=== PATIENT | male | born 1965 | race Caucasian/White ===

== ENCOUNTER 2017-01-21 09:30 | Emergency (ER) | payer OTHER ==
[2017-01-21] MEDS ORDERED: NS 0.9% 1000 ML* 1,000 ML IV ONE (09:57)
[2017-01-21] MEDS ORDERED: LORazepam INJ* 2 MG/ML 1 ML VIAL IV PUSH ONE (10:02)
--- NOTE | 2017-01-21 10:02 | ED ---
Substance Abuse/Use - HPI Summary HPI Summary: 51M w/ PMH of mental health and GERD presents with ETOH withdrawal since last night. His last drink was 22:00 last night. He drinks 20 beers a day. He states that he has vomited 6 times this morning and is currently nauseous. He states that he has a moderate headache and that he is seeing spots. He admits to be anxious and feeling sweaty. He denies any si/hi. He also admits to back pain in lower back that says he has from sleeping wrong. He has a history of seizures from ETOH withdrawal but has not had one recently. - History Of Current Complaint Chief Complaint: EDSubstanceAbuse Stated Complaint: WITHDRAWAL Time Seen by Provider: 01/21/17 09:50 - Allergies/Home Medications Allergies/Adverse Reactions: Allergies Allergy/AdvReac Type Severity Reaction Status Date / Time Topiramate [From Topamax] AdvReac Muscle Ache Verified 01/21/17 09:57 PMH/Surg Hx/FS Hx/Imm Hx Endocrine/Hematology History: Denies: Hx Blood Transfusions, Hx Thyroid Disease Respiratory History: Reports: Hx Pneumonia, Hx Seasonal Allergies GI History: Reports: Hx Cirrhosis, Hx Gastroesophageal Reflux Disease, Hx Ulcer Musculoskeletal History: Reports: Hx Arthritis, Hx Back Problems, Hx Gout, Other Musculoskeletal History - b/l leg pain Sensory History: Reports: Hx Contacts or Glasses - READING Opthamlomology History: Reports: Hx Contacts or Glasses - READING Neurological History: Reports: Hx Headaches, Hx Migraine, Hx Seizures Denies: Hx Spinal Cord Injury Psychiatric History: Reports: Hx Anxiety, Hx Depression, Hx Inpatient Treatment , Hx Community Mental Health Tx, Hx Suicide Attempt, Hx Substance Abuse Denies: Hx Eating Disorder, Hx Post Traumatic Stress Disorder, Hx of Violent Episodes Against Others - Immunization History Date of Tetanus Vaccine: PT STATES UNSURE Date of Influenza Vaccine: NONE Infectious Disease History: No Infectious Disease History: Reports: Hx Hepatitis - Alcoholic hepatitis, Hx of Known/Suspected MRSA Denies: Traveled Outside the [place] in Last 30 Days - Family History Known Family History: Positive: Other - EtOH abuse, bipolar disorder, colon ca, - Social History Alcohol Use: Daily Alcohol Amount: 10-20 drinks per day Hx Substance Use: Yes Substance Use Type: Reports: Marijuana Substance Use Comment - Amount & Last Used: 10/01/16 Hx Tobacco Use: Yes Smoking Status (MU): Heavy Every Day Tobacco Smoker Type: Cigarettes Amount Used/How Often: 1 pack a day Length of Time of Smoking/Using Tobacco: 30 years Have You Smoked in the Last Year: Yes Review of Systems Negative: Fever Positive: Photophobia Negative: Chest Pain Negative: Shortness Of Breath Negative: Abdominal Pain Positive: Headache Positive: Anxious All Other Systems Reviewed And Are Negative: Yes Physical Exam Triage Information Reviewed: Yes Vital Signs On Initial Exam: Initial Vitals Temp Pulse Resp BP Pulse Ox 97.4 F 93 20 168/85 100 01/21/17 09:31 01/21/17 09:31 01/21/17 09:31 01/21/17 09:31 01/21/17 09:31 Vital Signs Reviewed: Yes Appearance: Positive: Well-Appearing - anxious Skin: Positive: Warm, Dry Head/Face: Positive: Normal Head/Face Inspection Eyes: Positive: Normal, Conjunctiva Clear ENT: Positive: Normal ENT inspection, Pharynx normal, TMs normal Respiratory/Lung Sounds: Positive: Clear to Auscultation, Breath Sounds Present Cardiovascular: Positive: Normal, RRR Abdomen Description: Positive: Nontender, Soft Bowel Sounds: Positive: Present Musculoskeletal: Positive: Other - mild tremor with hand extension Neurological: Positive: Alert, Oriented to Person Place, Time Diagnostics - Vital Signs Vital Signs Temp Pulse Resp BP Pulse Ox 01/21/17 09:31 97.4 F 93 20 168/85 100 - Laboratory Result Diagrams: 01/21/17 10:10 01/21/17 10:10 Lab Statement: Any lab studies that have been ordered have been reviewed, and results considered in the medical decision making process. Re-Evaluation - Re-Evaluation First Eval Re-Evaluation Time: 13:07 Comment: feeling better after ativan, vitals good, tremor gone Course/Dx - Course Course Of Treatment: 51M presents with ETOH withdrawal. Last drink 22:00 yesterday. Has 20 drinks a day. admits to nausea and has vomitied 6 times this morning. admits to moderate headache and anxiety. dr lucero saw patient and said can be d/c home. - Diagnoses Differential Diagnosis/HQI/PQRI: Positive: Alcohol Abuse, Alcohol Withdrawal, Delirium Tremens Provider Diagnoses: Alcohol withdrawal Discharge - Discharge Plan Condition: Stable Disposition: HOME Prescriptions: Ondansetron ODT TAB* [Zofran 4 MG Odt TAB*] 4 mg PO Q6H PRN #15 tab.odt PRN Reason: Nausea chlordiazePOXIDE CAP* [Librium CAP*] 25 mg PO ONCE #18 cap MDD 6 Patient Education Materials: Alcohol Withdrawal (ED) Referrals: Rick Aleman MD [Primary Care Provider] - Additional Instructions: Follow up with primary within 3 days Take zofran every 6 hours for nausea Take librium initial dose 50 mg (two tablets) can repeat two more doses of 50 mg ( two tablets) with a maximum of 6 tablets a day for symptoms of withdrawal such as anxiety, tremors Return to ED if develop any new or worsening symptoms
[2017-01-21 10:26] LABS: Hematocrit 46 % (42-52); Mean Corpuscular HGB Conc 35 g/dl (31-36); Mean Corpuscular Hemoglobin 32 pg (27-31); Mean Corpuscular Volume 91 fL (80-94); Mean Platelet Volume 7 um3 (7.4-10.4); Red Blood Count 5.09 10^6/ul (4.0-5.4); Red Cell Distribution Width 13 % (10.5-15); White Blood Count 6.9 10^3/ul (3.5-10.8)
[2017-01-21 10:43] LABS: Albumin 4.6 g/dL (3.2-5.2); BUN/Creatinine Ratio 11.6 (8-20); Calcium 9.6 mg/dL (8.6-10.3); EGFR African American 106.7 (>60); EGFR Non-African American 82.9 (>60); Globulin 2.5 g/dL (2-4); Total Bilirubin 1.1 mg/dL (0.2-1.0); Total Protein 7.1 g/dL (6.4-8.9)
[2017-01-21 13:48] VITALS: BP 149/81
--- NOTE | 2017-01-24 09:40 | ED ---
Loretta Byrd Matthew, chepeibed for Camacho Inman MD on 01/21/17 at 1227 . Progress - Progress Note Progress Note: A 51 y/o male presents to the ED after he woke-up with vomiting and diarrhea. His last drink was at 22:00 last night and he normally drinks 20 beers a day. The patient denies abdominal pain. He presents with a normal HR and BP. Hes also no tremulous. Recommend he be prescribed Zofran and Librium, for what is mostly likely a combination of gastroenteritis and alcohol dependence. Re-Evaluation - Re-Evaluation First Eval Re-Evaluation Time: 13:07 Comment: feeling better after ativan, vitals good, tremor gone Course/Dx - Course Course Of Treatment: 51M presents with ETOH withdrawal. Last drink 22:00 yesterday. Has 20 drinks a day. admits to nausea and has vomitied 6 times this morning. admits to moderate headache and anxiety. - Diagnoses Provider Diagnoses: Alcohol withdrawal The documentation as recorded by the Loretta lutz Matthew accurately reflects the service I personally performed and the decisions made by me, Camacho Inman MD.
== END 2017-01-21 13:45 | disposition home or self-care (01) ==
LOC: ED 09:30
DX: F10.239 Alcohol dependence with withdrawal, unspecified (principal); R51 Headache; H53.149 Visual discomfort, unspecified; F17.210 Nicotine dependence, cigarettes, uncomplicated
CPT/HCPCS: 36415; 80053; 82607; 83690; 85025; 96374; 99282; J2060

== ENCOUNTER 2017-01-27 10:28 | Inpatient (IN) | payer OTHER ==
[2017-01-27] MEDS ORDERED: LORazepam TAB(*) 1 MG PO ONE (11:02)
[2017-01-27 11:34] LABS: Urine Bilirubin Negative (Negative); Urine Glucose Negative (Negative); Urine Nitrite Negative (Negative)
[2017-01-27 11:41] LABS: Hematocrit 45 % (42-52); Hemoglobin 15.6 g/dl (14.0-18.0); Mean Corpuscular HGB Conc 34 g/dl (31-36); Mean Corpuscular Hemoglobin 32 pg (27-31); Mean Corpuscular Volume 93 fL (80-94); Mean Platelet Volume 8 um3 (7.4-10.4); Red Blood Count 4.86 10^6/ul (4.0-5.4); Red Cell Distribution Width 14 % (10.5-15); White Blood Count 5.7 10^3/ul (3.5-10.8)
[2017-01-27 11:51] LABS: Benzodiazepine Urine Screen Presumptive Positive (None Detect)
--- NOTE | 2017-01-27 11:57 | ED ---
Psychiatric Complaint - HPI Summary HPI Summary: 51 year old male presents with complaints of alcohol abuse due to depression, not taking his medications and having suicidal thoughts with a plan to breathe in carbon monoxide. Denies homicidal thoughts. He has not had any suicidal attempts, or self harm. Admits to sometimes having hallucinations. States he has been drinking approximately 7-8 beers a day for the past month and feels he may go into withdrawal. Last beer was yesterday 01/26. He is asking for help. Admits to use of marijuana but denies any other drug use. Denies any other medical problems or complaints at this time. - History Of Current Complaint Chief Complaint: EDMentalHealth Time Seen by Provider: 01/27/17 11:01 Hx Obtained From: Patient Onset/Duration: Gradual Onset, Lasting Weeks, Worse Since Timing: Constant Severity Initially: Mild Severity Currently: Moderate Character: Depressed Aggravating Factor(s): Recent Stress, Alcohol Use Alleviating Factor(s): Medication - however has not taken it for the past month due to drinking alcohol Associated Signs And Symptoms: Positive: Negative Related History: Positive For: Prior Psychiatric Issues Has Suicidal: Reports: Thoughts, With A Plan. Denies: Demonstrates Gesture Has Homicidal: Denies: Thoughts, With A Plan - Risk Factor(s) Completed Suicide Risk Factors: Male, Living Alone, Unemployed - Allergies/Home Medications Allergies/Adverse Reactions: Allergies Allergy/AdvReac Type Severity Reaction Status Date / Time Topiramate [From Topamax] AdvReac Muscle Ache Verified 01/27/17 17:39 PMH/Surg Hx/FS Hx/Imm Hx Endocrine/Hematology History: Denies: Hx Blood Transfusions, Hx Thyroid Disease Respiratory History: Reports: Hx Pneumonia, Hx Seasonal Allergies GI History: Reports: Hx Cirrhosis, Hx Gastroesophageal Reflux Disease, Hx Ulcer Musculoskeletal History: Reports: Hx Arthritis, Hx Back Problems, Hx Gout, Other Musculoskeletal History - b/l leg pain Sensory History: Reports: Hx Contacts or Glasses - READING Opthamlomology History: Reports: Hx Contacts or Glasses - READING Neurological History: Reports: Hx Headaches, Hx Migraine, Hx Seizures Denies: Hx Spinal Cord Injury Psychiatric History: Reports: Hx Anxiety, Hx Depression, Hx Inpatient Treatment , Hx Community Mental Health Tx, Hx Suicide Attempt, Hx Substance Abuse Denies: Hx Eating Disorder, Hx Post Traumatic Stress Disorder, Hx of Violent Episodes Against Others - Surgical History Surgery Procedure, Year, and Place: none - Immunization History Date of Tetanus Vaccine: PT STATES UNSURE Date of Influenza Vaccine: NONE Infectious Disease History: No Infectious Disease History: Reports: Hx Hepatitis - Alcoholic hepatitis, Hx of Known/Suspected MRSA Denies: Traveled Outside the [place] in Last 30 Days - Family History Known Family History: Positive: Other - EtOH abuse, bipolar disorder, colon ca, - Social History Alcohol Use: Daily Alcohol Amount: 10-20 drinks per day Hx Substance Use: Yes Substance Use Type: Reports: Marijuana Substance Use Comment - Amount & Last Used: 10/01/16 Hx Tobacco Use: Yes Smoking Status (MU): Heavy Every Day Tobacco Smoker Type: Cigarettes Amount Used/How Often: 1 pack a day Length of Time of Smoking/Using Tobacco: 30 years Have You Smoked in the Last Year: Yes Review of Systems Constitutional: Negative Eyes: Negative ENT: Negative Cardiovascular: Negative Respiratory: Negative Gastrointestinal: Negative Genitourinary: Negative Musculoskeletal: Negative Skin: Negative Neurological: Negative Positive: Depressed All Other Systems Reviewed And Are Negative: Yes Physical Exam Triage Information Reviewed: Yes Vital Signs On Initial Exam: Initial Vitals Temp Pulse Resp BP Pulse Ox 96.7 F 78 20 114/71 99 01/27/17 10:36 01/27/17 10:36 01/27/17 10:36 01/27/17 10:36 01/27/17 10:36 Vital Signs Reviewed: Yes Appearance: Positive: Well-Appearing - laying in hospital bed, speaking quietly and avoids eye contact, No Pain Distress, Well-Nourished Skin: Positive: Warm, Skin Color Reflects Adequate Perfusion, Dry Head/Face: Positive: Normal Head/Face Inspection Eyes: Positive: Normal, EOMI, LAYNE, Conjunctiva Clear ENT: Positive: Normal ENT inspection, Hearing grossly normal Neck: Positive: Supple, Nontender, No Lymphadenopathy Respiratory/Lung Sounds: Positive: Clear to Auscultation, Breath Sounds Present Cardiovascular: Positive: Normal, RRR, Pulses are Symmetrical in both Upper and Lower Extremities Abdomen Description: Positive: Nontender, Soft Bowel Sounds: Positive: Present Musculoskeletal: Positive: Normal, Strength/ROM Intact Neurological: Positive: Normal, Sensory/Motor Intact, Alert, Oriented to Person Place, Time Psychiatric: Positive: Normal, Depressed - Delgado Coma Scale Best Eye Response: 4 - Spontaneous Best Motor Response: 6 - Obeys Commands Best Verbal Response: 5 - Oriented Diagnostics - Vital Signs Vital Signs Temp Pulse Resp BP Pulse Ox 01/27/17 11:30 22 01/27/17 10:36 96.7 F 78 20 114/71 99 - Laboratory Lab Results: Lab Results 01/27/17 01/27/17 01/27/17 Range/Units 11:05 11:05 11:20 WBC 5.7 (3.5-10.8) 10^3/ul RBC 4.86 (4.0-5.4) 10^6/ul Hgb 15.6 (14.0-18.0) g/dl Hct 45 (42-52) % MCV 93 (80-94) fL MCH 32 H (27-31) pg MCHC 34 (31-36) g/dl RDW 14 (10.5-15) % Plt Count 163 (150-450) 10^3/ul MPV 8 (7.4-10.4) um3 Neut % (Auto) 65.8 (38-83) % Lymph % (Auto) 23.4 L (25-47) % [place] % (Auto) 9.2 H (1-9) % Eos % (Auto) 0.8 (0-6) % Baso % (Auto) 0.8 (0-2) % Absolute Neuts (auto) 3.8 (1.5-7.7) 10^3/ul Absolute Lymphs (auto) 1.3 (1.0-4.8) 10^3/ul Absolute Monos (auto) 0.5 (0-0.8) 10^3/ul Absolute Eos (auto) 0 (0-0.6) 10^3/ul Absolute Basos (auto) 0 (0-0.2) 10^3/ul Absolute Nucleated RBC 0 10^3/ul Nucleated RBC % 0 Urine Color Yellow Urine Appearance Clear Urine pH 5.0 (5-9) Ur Specific Lewis 1.017 (1.010-1.030) Urine Protein Negative (Negative) Urine Ketones Negative (Negative) Urine Blood Negative (Negative) Urine Nitrate Negative (Negative) Urine Bilirubin Negative (Negative) Urine Urobilinogen Negative (Negative) Ur Leukocyte Esterase Negative (Negative) Urine Glucose Negative (Negative) Urine Opiates Screen None detected (None Detect) Ur Barbiturates Screen None detected (None Detect) Ur Phencyclidine Scrn None detected (None Detect) Ur Amphetamines Screen None detected (None Detect) U Benzodiazepines Scrn Presumptive positive H (None Detect) Urine Cocaine Screen None detected (None Detect) U Cannabinoids Screen Presumptive positive H (None Detect) Result Diagrams: 01/27/17 11:20 01/27/17 11:20 Lab Statement: Any lab studies that have been ordered have been reviewed, and results considered in the medical decision making process. Course/Dx - Course Course Of Treatment: patient was medically cleared. will have mental health evaluation for probable inpatient admission. - Differential Dx/Clinical Impression Differential Diagnosis/HQI/PQRI: Positive: Acute Psychosis, Alcohol Intoxication , Anxiety, Depression, Suicidal Ideation Provider Diagnosis: MHE, Suicidal ideation, Alcohol withdrawal, Alcohol dependence Discharge - Discharge Plan Condition: Stable Disposition: ADMITTED TO [facility]
[2017-01-27 11:58] LABS: ALT 105 U/L (7-52); Acetaminophen < 15 mcg/mL; Albumin 3.9 g/dL (3.2-5.2); Alcohol < 10 mg/dL (<10); Alkaline Phosphatase 64 U/L (34-104); BUN/Creatinine Ratio 17.6 (8-20); Blood Urea Nitrogen 16 mg/dL (6-24); CO2 Carbon Dioxide 26 mmol/L (22-32); Calcium 8.9 mg/dL (8.6-10.3); Chloride 108 mmol/L (101-111); EGFR African American 112.1 (>60); EGFR Non-African American 87.2 (>60); Globulin 2.4 g/dL (2-4); Glucose 92 mg/dL (70-100); Salicylate < 2.50 mg/dL (<30); Sodium 140 mmol/L (133-145); Total Protein 6.3 g/dL (6.4-8.9)
[2017-01-27 12:06] LABS: TSH (Thyroid Stimulating Horm) 0.87 mcIU/mL (0.34-5.60)
[2017-01-27 13:06] LABS: Anion Gap 6 mmol/L (2-11); Potassium 4.4 mmol/L (3.5-5.0)
[2017-01-27 13:11] LABS: AST 82 U/L (13-39)
[2017-01-27] MEDS ORDERED: Al Hydrox/Mg Hydrox/Simet LIQ* 30 ML UDC PO PRN (14:45)
[2017-01-27] MEDS ORDERED: Ondansetron TAB* 4 MG PO PRN (14:48)
[2017-01-27] MEDS ORDERED: Mouth Piece, Nicotine* 1 EACH CARTRIDGE INH SCH (18:54)
[2017-01-27] MEDS ORDERED: LORazepam IM* PER WAM PARAMETERS IM SCH (19:00)
[2017-01-27] MEDS ORDERED: LORazepam TAB(*) WAM SCALE 0-6 MG PO SCH (19:00)
[2017-01-27] MEDS: Nicotine Inhaler* 10 MG AMP INH PRN (19:58)
[2017-01-27] MEDS: Nicotine Patch Removal NOTE PATCH OFF SCH (21:28)
[2017-01-27] MEDS: Mirtazapine TAB* 15 MG PO SCH (21:29)
[2017-01-27] MEDS: busPIRone TAB* 15 MG PO SCH (21:29)
[2017-01-28] MEDS: Omeprazole CAP* 20 MG PO SCH (05:02)
[2017-01-28] MEDS: Acetaminophen TAB* 325 MG PO PRN ×2 (05:03→09:01)
[2017-01-28] MEDS: Nicotine PATCH 14 MG/24 HR* PATCH TRANSDERM SCH (08:59)
[2017-01-28] MEDS: Nicotine Inhaler* 10 MG AMP INH PRN ×2 (09:01→15:25)
[2017-01-28] MEDS: busPIRone TAB* 15 MG PO SCH ×2 (09:02→20:04)
[2017-01-28] MEDS: buPROPion SR TAB.SR* 150 MG PO SCH (09:02)
[2017-01-28] MEDS: Vitamin THERAPEUTIC TAB PO SCH (09:02)
[2017-01-28] MEDS: Thiamine TAB* 100 MG TAB PO SCH (09:02)
[2017-01-28] MEDS: hydrOXYzine HCL TAB* 25 MG PO PRN (12:06)
[2017-01-28] MEDS: cloNIDine TAB* 0.1 MG PO SCH ×2 (15:26→20:04)
--- NOTE | 2017-01-28 19:43 | HP ---
HISTORY AND PHYSICAL: DATE OF ADMISSION: 01/27/17 JUSTIFICATION FOR ADMISSION: The patient is in need of 24-hour supervision and care secondary to suicidal ideations voiced within 72 hours of admission. CHIEF COMPLAINT: "I want to go to [facility]. I don't get the care that I need here." HISTORY OF PRESENT ILLNESS: Mr. Lord is a 51-year-old single white male with a history of alcohol abuse and anxiety who arrived at our emergency room seeking voluntary hospitalization for anxiety and suicidal ideations in the context of severe misuse of alcohol. He states that he relapsed on alcohol several months ago, has been using large amounts of this and he is afraid that if he discontinues it that he will go through withdrawal symptoms. He notes that after his most recent admission to our unit in April 2016, he went to the [facility] in [place], [place], but only maintained his sobriety a couple of months before relapsing. At this time, he is seeking referral to a new substance abuse recovery program. It is notable that the patient is somewhat needy and demanding. He is complaining of being overlooked, throwing papers, and demanding immediate service by a doctor and a load planner. When I do meet with him, he is upset that he has not received benzodiazepine treatment for withdrawal. I do explain the protocol that we use, which is called the WAM in which we use lorazepam on the basis of objective physiological signs related to blood pressure and heart rate monitoring. The patient continues to state that he would not be safe if discharged to the street. PAST PSYCHIATRIC HISTORY: He has had multiple past psychiatric hospitalizations both to rehabilitation facilities as well as [facility] in [place] and [facility]. He has also had multiple housing placements in [facility]. Most recently, he was being seen by Lesly Calloway at [facility], although he acknowledges that he has not been compliant with his medications. SUBSTANCE ABUSE HISTORY: The patient has been binging on approximately 20 beers per day. He indicates that he occasionally uses cannabis and his urine drug screen is positive for this. He has taken naltrexone in the past. He denies any history of opioid use. He states that he has taken hallucinogens approximately 30 times in his life. Serum alcohol level was negative at the time of admission. PAST MEDICAL HISTORY: Significant for: 1. Alcoholic hepatitis. 2. Gastroesophageal reflux disease. 3. Chronic back pain. 4. Chronic arthritis. 5. Alcohol withdrawal seizures. HOME MEDICATIONS: Include: 1. Remeron 30 mg nightly. 2. Omeprazole 10 mg daily. 3. Zofran 4 mg as needed. 4. Wellbutrin SR 150 mg daily. 5. BuSpar 10 mg 3 times daily. 6. Librium 25 mg once daily. 7. Atarax 25 mg as needed for anxiety. ALLERGIES: Include TOPIRAMATE. SOCIAL HISTORY: The patient lives in a rooming house. He has 2 brothers and a sister. He reports one brother doing well, living in [place], another brother here in this area who has been clean and sober for 13 years. He has a sister in [place] who has heroin abuse. He is single, never , no children. He has pursued education in chemical dependency counseling and at one point had an interest in being a drug and alcohol counselor. REVIEW OF SYSTEMS: The patient complains of tremulousness and anxiety from alcohol withdrawal. Other than this, he denies headache or double vision. Denies sore throat, cough, chest pain, or difficulty breathing. Denies abdominal pain, nausea, vomiting, diarrhea, or constipation. Denies difficulty ambulating, enlarged lymph nodes, rashes, fevers, or changes in weight. PHYSICAL EXAMINATION VITAL SIGNS: Blood pressure of 120/71, heart rate 70, respiratory rate 16, temperature is 97.1 degrees Fahrenheit, oxygen saturations are 100% on room air. HEENT: Head is normocephalic, atraumatic. NECK: Supple. CHEST: Clear to auscultation bilaterally. CARDIAC: Exam reveals normal heart sounds. ABDOMEN: Soft and nontender. SKIN: Warm and dry. MUSCULOSKELETAL: Exam reveals no sign of edema. NEUROLOGIC: He is grossly intact with mild tremor. LABORATORY DATA: His complete blood count is within normal limits. Complete metabolic panel reveals elevated AST at 82, elevated ALT at 105. Urinalysis is within normal limits. Urine drug screen is positive both for benzodiazepines and cannabis. His alcohol level was negligible. MENTAL STATUS EXAM: The patient is a middle-aged white male appearing to be slightly older than his stated age. He is wearing comfortable street clothing. He has fairly good eye contact. He is somewhat needy and demanding in terms of interpersonal interaction, although he is cooperative. Speech has a normal rate, tone, and volume. Mood is anxious with a corresponding anxious affect. Thought process is linear and goal directed. Thought content is significant for his desire to get into a rehab. He is endorsing suicidal ideations with a plan to drink himself to . He denies homicidality. He denies auditory or visual hallucinations. Insight and judgment appear to be fair given his willingness to follow through with treatment. Cognitively, he is awake and alert with what would appear to be an average intellect. DIAGNOSES: [place] I: 1. Alcohol-induced mood disorder. 2. Alcohol use disorder. 3. Anxiety disorder, NOS, by history. [place] II: Deferred. [place] III: History of alcoholic hepatitis, gastroesophageal reflux disorder, chronic back pain, arthritis, history of alcohol withdrawal seizures. [place] IV: Severe housing stressors. [place] V: At this time is 43. IMPRESSION: The patient is a 51-year-old single white male with a history of alcoholism who arrived at our clinic complaining of anxiety and suicidal thoughts related to severe over utilization of alcohol. The patient has relapsed on alcohol and is not taking his current prescribed medications and has not followed through with seeing Lesly Calloway at the [facility]. At this time, he is requesting transfer to a rehab and would like to be on a detox protocol with benzodiazepines. PLAN: The patient is admitted to the adult behavioral health unit where is placed on q. 30 minute checks for his own safety. He has been placed back on his prescribed medications and these include Remeron 15 mg nightly, omeprazole 20 mg daily, Zofran as needed for nausea, thiamine 100 mg daily for his alcohol related nutritional needs, bupropion SR 150 mg daily, BuSpar 15 mg twice daily. We will have him on Atarax 25 mg as needed for anxiety and put him on scheduled clonidine at 0.1 mg t.i.d. to make him more comfortable. We do have him on the [facility] protocol, although his physiological signs and symptoms have not met the requirements for lorazepam treatment and I would want to minimize benzodiazepines given his substance abuse history. I think for the most part what we can do for him is refer him back to a drug rehab program in the community, either inpatient or outpatient. Once he is no longer suicidal, we will talk about his disposition with the patient. [id number]/[facility] #: [id number]
[2017-01-28] MEDS: Mirtazapine TAB* 15 MG PO SCH (20:04)
[2017-01-28] MEDS: Nicotine Patch Removal NOTE PATCH OFF SCH (21:46)
[2017-01-29] MEDS: Acetaminophen TAB* 325 MG PO PRN ×2 (05:52→20:14)
[2017-01-29] MEDS: Omeprazole CAP* 20 MG PO SCH (06:05)
[2017-01-29] MEDS: Nicotine Inhaler* 10 MG AMP INH PRN ×2 (08:00→17:34)
[2017-01-29] MEDS: Nicotine PATCH 14 MG/24 HR* PATCH TRANSDERM SCH (08:01)
[2017-01-29] MEDS: Vitamin THERAPEUTIC TAB PO SCH (08:01)
[2017-01-29] MEDS: cloNIDine TAB* 0.1 MG PO SCH ×3 (08:01→20:13)
[2017-01-29] MEDS: busPIRone TAB* 15 MG PO SCH ×2 (08:01→20:13)
[2017-01-29] MEDS: Thiamine TAB* 100 MG TAB PO SCH (08:01)
[2017-01-29] MEDS: buPROPion SR TAB.SR* 150 MG PO SCH (08:01)
[2017-01-29] MEDS: Nicotine GUM* 2 MG PO PRN ×2 (13:02→20:14)
--- NOTE | 2017-01-29 16:30 | PN ---
Subjective - Subjective Service Type: 54250 Hosp care 15 min low complexity Subjective: The patient is calm and cooperative today. States that clonidine is helping his withdrawal symptoms. He denies SI and is looking forward to inpatient rehab placement. Objective - Appearance Appearance: Well Developed/Nourished Dysmorphic Features: No Hygiene: Normal Grooming: Fairly Well Kept - Behavior Psychomotor Activities: Normal Exhibits Abnormal Movement: No - Attitude and Relatedness Attitude and Relatedness: Cooperative Eye Contact: Good - Speech Quality: Unpressured Latencies: Normal Quantity: Appropriate - Mood Patient's Decription of Mood: "Okay" - Affect Observed Affect: Fair Affect Consistent with: Euthymia - Thought Process Patient's Thought Process: Coherent Thought Content: No Passive Wish, No Suicidal Planning, No Homicidal Ideation, No Paranoid Ideation - Sensorium Experiencing Hallucinations: No, Sensorium is Clear Type of Hallucinations: Visual: No, Auditory: No, Command: No - Level of Consciousness Level of Consciousness: Alert Orientation: Yes Intact, Yes Orientated to Time, Yes Orientated to Place, Yes Orientated to Person - Impulse Control Impulse Control: Tenuous - Insight and Judgement Insight and Judgement: Fair - Group Participation Particating in Group Activities: No - Medication Management Medication Management Adherence: Yes Assessment - Assessment Merits Inpatient Hospitalization: Consolidate Improvements, Pending Safe DC Plan 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 single, white male with a history of chronic alcohol abuse and anxiety who presented to the ER seeking inpatient treatment for SI along with detoxification from alcohol. Plan - Plan Treatment Plan: Name: DIAMOND SEGURA Birthdate: 1965 [id number] We have resumed treatment with mirtazapine, bupropion, busiparone. Mood is improving and he denies SI. He is receiving clonidine for withdrawal and is also on the [facility] protocol. Await placement in an inpatient rehab facility. Continued Medication Management: Continue Outpt Medication Medications: Current Medications Acetaminophen (Tylenol Tab*) 650 mg PO Q4H PRN PRN Reason: for pain; or Temp >101 F Last Admin: 01/29/17 05:52 Dose: 650 mg Al Hydrox/Mg Hydrox/Simethicone (Maalox Plus*) 30 ml PO Q4H PRN PRN Reason: INDIGESTION Bupropion HCl (Wellbutrin Sr Tab*) 150 mg PO DAILY [facility] Last Admin: 01/29/17 08:01 Dose: 150 mg Buspirone HCl (Buspar Tab *) 15 mg PO BID [facility] Last Admin: 01/29/17 08:01 Dose: 15 mg Clonidine HCl (Catapres Tab*) 0.1 mg PO TID [facility] Last Admin: 01/29/17 13:02 Dose: 0.1 mg Device (Nicotine Mouth Piece*) 1 each INH .CARTRIDGE [facility] Last Admin: 01/27/17 19:58 Dose: 1 each Hydroxyzine HCl (Atarax Tab*) 25 mg PO Q6H PRN PRN Reason: AGITATION/ANXIETY/INSOMNIA Last Admin: 01/28/17 12:06 Dose: 25 mg Lorazepam (Ativan Inj*) 0 - 6 mg IM .PER WAM PARAMETERS [facility] PRN Reason: Protocol Lorazepam (Ativan Tab(*)) 0 - 6 mg PO .PER WAM PARAMETERS [facility] PRN Reason: Protocol Last Admin: 01/28/17 05:04 Dose: 2 mg Mirtazapine (Remeron Tab*) 15 mg PO BEDTIME [facility] Last Admin: 01/28/17 20:04 Dose: 15 mg Multivitamins (Theragran Tab*) 1 tab PO DAILY [facility] Last Admin: 01/29/17 08:01 Dose: 1 tab Nicotine (Nicotine Inhaler*) 10 mg INH Q2H PRN PRN Reason: CRAVING Last Admin: 01/29/17 08:00 Dose: 10 mg Nicotine (Nicotine Patch 14 Mg/24 Hr*) 1 patch TRANSDERM DAILY [facility] Last Admin: 01/29/17 08:01 Dose: 1 patch Nicotine Polacrilex (Nicotine Gum*) 2 mg PO Q2H PRN PRN Reason: CRAVING Last Admin: 01/29/17 13:02 Dose: 2 mg Omeprazole (Prilosec Cap*) 20 mg PO 0600 [facility] Last Admin: 01/29/17 06:05 Dose: 20 mg Ondansetron HCl (Zofran Tab*) 4 mg PO Q8H PRN PRN Reason: NAUSEA Pharmacy Profile Note (Nicotine Patch Removal Note*) 1 note PATCH OFF 2100 [facility] Last Admin: 01/28/17 21:46 Dose: 1 note Thiamine HCl (Vitamin B-1 Tab*) 100 mg PO DAILY [facility] Last Admin: 01/29/17 08:01 Dose: 100 mg - Discharge Plan Discharge Plan: Drug/Alcohol Rehab
[2017-01-29] MEDS: hydrOXYzine HCL TAB* 25 MG PO PRN (17:34)
[2017-01-29] MEDS: Mirtazapine TAB* 15 MG PO SCH (20:13)
[2017-01-29] MEDS: Nicotine Patch Removal NOTE PATCH OFF SCH (20:59)
[2017-01-30] MEDS: Omeprazole CAP* 20 MG PO SCH (06:08)
[2017-01-30] MEDS: Nicotine PATCH 14 MG/24 HR* PATCH TRANSDERM SCH (07:41)
[2017-01-30] MEDS: Nicotine Inhaler* 10 MG AMP INH PRN ×3 (07:41→20:20)
--- NOTE | 2017-01-30 08:00 | PN ---
Subjective - Subjective Service Type: 09239 Hosp care 15 min low complexity Subjective: Diamond reports feeling okay and safe. Mood symptoms are mild, his complaint is related to anxiety in the context of alcohol withdrawal - feels a little shaky - but expects moving through it uneventfully - and plans to go to rehab. Objective - Appearance Appearance: Well Developed/Nourished Hygiene: Normal Grooming: Well Kept - Behavior Psychomotor Activities: Normal - Attitude and Relatedness Attitude and Relatedness: Cooperative Eye Contact: Good - Speech Quality: Unpressured Latencies: Normal Quantity: Terse - Mood Patient's Decription of Mood: "Okay" - Affect Observed Affect: Non-labile Affect Consistent with: Dysphoria - Thought Process Patient's Thought Process: Coherent Thought Content: No Passive Wish, No Suicidal Planning, No Homicidal Ideation, No Paranoid Ideation - Sensorium Experiencing Hallucinations: No, Sensorium is Clear - Level of Consciousness Level of Consciousness: Alert - Impulse Control Impulse Control: Intact - Insight and Judgement Insight and Judgement: Fair Assessment - Assessment Merits Inpatient Hospitalization: For Stabilization, To Initiate Treatment, For Ongoing Evaluation, Consolidate Improvements, For Discharge Planning 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 He presented typically, with depressive symptoms and suicidal thoughts, after a period of heavy alcohol use. Stabilizing here. Progressing though alcohol withdrawal. Is on the [facility] protocol for acute detox, with clonidine, and his outpatient antidepressant therapy with buspirone. He is safe on checks, in behavioral control, not actively suicidal. Plan - Plan Treatment Plan: Name: DIAMOND SEGURA Birthdate: 1965 [id number] Continued Medication Management: Continue Outpt Medication Medications: Current Medications Acetaminophen (Tylenol Tab*) 650 mg PO Q4H PRN PRN Reason: for pain; or Temp >101 F Last Admin: 01/29/17 20:14 Dose: 650 mg Al Hydrox/Mg Hydrox/Simethicone (Maalox Plus*) 30 ml PO Q4H PRN PRN Reason: INDIGESTION Bupropion HCl (Wellbutrin Sr Tab*) 150 mg PO DAILY [facility] Last Admin: 01/29/17 08:01 Dose: 150 mg Buspirone HCl (Buspar Tab *) 15 mg PO BID [facility] Last Admin: 01/29/17 20:13 Dose: 15 mg Clonidine HCl (Catapres Tab*) 0.1 mg PO TID [facility] Last Admin: 01/29/17 20:13 Dose: 0.1 mg Device (Nicotine Mouth Piece*) 1 each INH .CARTRIDGE [facility] Last Admin: 01/27/17 19:58 Dose: 1 each Hydroxyzine HCl (Atarax Tab*) 25 mg PO Q6H PRN PRN Reason: AGITATION/ANXIETY/INSOMNIA Last Admin: 01/29/17 17:34 Dose: 25 mg Lorazepam (Ativan Inj*) 0 - 6 mg IM .PER WAM PARAMETERS [facility] PRN Reason: Protocol Lorazepam (Ativan Tab(*)) 0 - 6 mg PO .PER WAM [facility]AMETERS [facility] PRN Reason: Protocol Last Admin: 01/28/17 05:04 Dose: 2 mg Mirtazapine (Remeron Tab*) 15 mg PO BEDTIME [facility] Last Admin: 01/29/17 20:13 Dose: 15 mg Multivitamins (Theragran Tab*) 1 tab PO DAILY [facility] Last Admin: 01/29/17 08:01 Dose: 1 tab Nicotine (Nicotine Inhaler*) 10 mg INH Q2H PRN PRN Reason: CRAVING Last Admin: 01/30/17 07:41 Dose: 10 mg Nicotine (Nicotine Patch 14 Mg/24 Hr*) 1 patch TRANSDERM DAILY [facility] Last Admin: 01/30/17 07:41 Dose: 1 patch Nicotine Polacrilex (Nicotine Gum*) 2 mg PO Q2H PRN PRN Reason: CRAVING Last Admin: 01/29/17 20:14 Dose: 2 mg Omeprazole (Prilosec Cap*) 20 mg PO 0600 [facility] Last Admin: 01/30/17 06:08 Dose: 20 mg Ondansetron HCl (Zofran Tab*) 4 mg PO Q8H PRN PRN Reason: NAUSEA Pharmacy Profile Note (Nicotine Patch Removal Note*) 1 note PATCH OFF 2100 [facility] Last Admin: 01/29/17 20:59 Dose: 1 note Thiamine HCl (Vitamin B-1 Tab*) 100 mg PO DAILY [facility] Last Admin: 01/29/17 08:01 Dose: 100 mg - Discharge Plan Discharge Plan: Drug/Alcohol Rehab
[2017-01-30] MEDS: Vitamin THERAPEUTIC TAB PO SCH (08:36)
[2017-01-30] MEDS: busPIRone TAB* 15 MG PO SCH ×2 (08:36→20:01)
[2017-01-30] MEDS: cloNIDine TAB* 0.1 MG PO SCH ×3 (08:36→20:01)
[2017-01-30] MEDS: buPROPion SR TAB.SR* 150 MG PO SCH (08:36)
[2017-01-30] MEDS: Thiamine TAB* 100 MG TAB PO SCH (08:36)
[2017-01-30] MEDS: Nicotine GUM* 2 MG PO PRN ×2 (13:50→20:01)
[2017-01-30] MEDS: Acetaminophen TAB* 325 MG PO PRN (13:50)
[2017-01-30] MEDS: Mirtazapine TAB* 15 MG PO SCH (20:01)
[2017-01-30] MEDS: Nicotine Patch Removal NOTE PATCH OFF SCH (20:01)
[2017-01-30] MEDS: hydrOXYzine HCL TAB* 25 MG PO PRN (20:02)
[2017-01-31] MEDS: Omeprazole CAP* 20 MG PO SCH (06:21)
[2017-01-31] MEDS: Acetaminophen TAB* 325 MG PO PRN ×4 (06:21→20:24)
[2017-01-31] MEDS: Nicotine GUM* 2 MG PO PRN ×4 (06:22→19:58)
[2017-01-31] MEDS: Nicotine PATCH 14 MG/24 HR* PATCH TRANSDERM SCH (08:12)
[2017-01-31] MEDS: Nicotine Inhaler* 10 MG AMP INH PRN ×2 (08:13→20:00)
[2017-01-31] MEDS: busPIRone TAB* 15 MG PO SCH ×2 (08:14→19:56)
[2017-01-31] MEDS: buPROPion SR TAB.SR* 150 MG PO SCH (08:14)
[2017-01-31] MEDS: Thiamine TAB* 100 MG TAB PO SCH (08:14)
[2017-01-31] MEDS: Vitamin THERAPEUTIC TAB PO SCH (08:15)
[2017-01-31] MEDS: cloNIDine TAB* 0.1 MG PO SCH ×3 (08:21→19:56)
[2017-01-31] MEDS: Benzocaine/Menthol LOZ* 1 LOZENGE PO PRN ×2 (09:08→16:21)
[2017-01-31] MEDS: hydrOXYzine HCL TAB* 25 MG PO PRN (16:21)
[2017-01-31] MEDS: Mirtazapine TAB* 15 MG PO SCH (19:57)
[2017-01-31] MEDS: Nicotine Patch Removal NOTE PATCH OFF SCH (20:00)
[2017-01-31] MEDS ORDERED: Nicotine Patch Removal NOTE PATCH OFF SCH (21:45)
[2017-02-01] MEDS: Benzocaine/Menthol LOZ* 1 LOZENGE PO PRN ×2 (02:37→08:43)
[2017-02-01] MEDS: Omeprazole CAP* 20 MG PO SCH (07:41)
[2017-02-01] MEDS: Nicotine PATCH 21 MG/24 HR* PATCH TRANSDERM SCH (08:41)
[2017-02-01] MEDS: Nicotine Inhaler* 10 MG AMP INH PRN ×2 (08:42→13:49)
[2017-02-01] MEDS: buPROPion SR TAB.SR* 150 MG PO SCH (08:42)
[2017-02-01] MEDS: Thiamine TAB* 100 MG TAB PO SCH (08:42)
[2017-02-01] MEDS: cloNIDine TAB* 0.1 MG PO SCH ×3 (08:42→20:23)
[2017-02-01] MEDS: Vitamin THERAPEUTIC TAB PO SCH (08:43)
[2017-02-01] MEDS: busPIRone TAB* 15 MG PO SCH ×2 (08:43→20:22)
[2017-02-01] MEDS: Acetaminophen TAB* 325 MG PO PRN ×2 (08:44→13:50)
[2017-02-01] MEDS ORDERED: Nicotine Inhaler* 10 MG AMP INH PRN (09:09)
--- NOTE | 2017-02-01 13:40 | PN ---
Subjective - Subjective Service Type: 73703 Hosp care 15 min low complexity Subjective: The patient continues to deny SI and states that his anxiety is under control. He feels ready to attend rehab and has been accepted for transfer tomorrow to [facility] in [place], [place]. He makes no other complaints to me and has no questions. Objective - Appearance Appearance: Well Developed/Nourished Dysmorphic Features: No Hygiene: Normal Grooming: Fairly Well Kept - Behavior Psychomotor Activities: Normal Exhibits Abnormal Movement: No - Attitude and Relatedness Attitude and Relatedness: Cooperative Eye Contact: Fair - Speech Quality: Unpressured Latencies: Normal Quantity: Terse - Mood Patient's Decription of Mood: "Okay" - Affect Observed Affect: Fair Affect Consistent with: Euthymia - Thought Process Patient's Thought Process: Coherent Thought Content: No Passive Wish, No Suicidal Planning, No Homicidal Ideation, No Paranoid Ideation - Sensorium Experiencing Hallucinations: No, Sensorium is Clear Type of Hallucinations: Visual: No, Auditory: No, Command: No - Level of Consciousness Level of Consciousness: Alert Orientation: No Intact, No Orientated to Time, No Orientated to Place, No Orientated to Person - Impulse Control Impulse Control: Tenuous - Insight and Judgement Insight and Judgement: Fair - Group Participation Particating in Group Activities: Yes - Medication Management Medication Management Adherence: Yes Assessment - Assessment Merits Inpatient Hospitalization: Pending Safe DC Plan 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 single, white male with a history of chronic alcohol abuse and anxiety who presented to the ER seeking inpatient treatment for SI along with detoxification from alcohol. Plan - Plan Treatment Plan: Name: DIAMOND SEGURA Birthdate: 1965 [id number] We have resumed treatment with mirtazapine, bupropion, busiparone and prn hydroxyzine. Mood is improving and he denies SI. He is receiving clonidine for withdrawal and is also on the [facility] protocol. Likely transfer tomorrow to [facility]. Continued Medication Management: Continue Outpt Medication Medications: Current Medications Acetaminophen (Tylenol Tab*) 650 mg PO Q4H PRN PRN Reason: for pain; or Temp >101 F Last Admin: 02/01/17 08:44 Dose: 650 mg Al Hydrox/Mg Hydrox/Simethicone (Maalox Plus*) 30 ml PO Q4H PRN PRN Reason: INDIGESTION Bupropion HCl (Wellbutrin Sr Tab*) 150 mg PO DAILY [facility] Last Admin: 02/01/17 08:42 Dose: 150 mg Buspirone HCl (Buspar Tab *) 15 mg PO BID [facility] Last Admin: 02/01/17 08:43 Dose: 15 mg Clonidine HCl (Catapres Tab*) 0.1 mg PO TID [facility] Last Admin: 02/01/17 08:42 Dose: 0.1 mg Device (Nicotine Mouth Piece*) 1 each INH .CARTRIDGE [facility] Last Admin: 01/27/17 19:58 Dose: 1 each Hydroxyzine HCl (Atarax Tab*) 25 mg PO Q6H PRN PRN Reason: AGITATION/ANXIETY/INSOMNIA Last Admin: 01/31/17 16:21 Dose: 25 mg Mirtazapine (Remeron Tab*) 15 mg PO BEDTIME [facility] Last Admin: 01/31/17 19:57 Dose: 15 mg Multivitamins (Theragran Tab*) 1 tab PO DAILY [facility] Last Admin: 02/01/17 08:43 Dose: 1 tab Nicotine (Nicotine Inhaler*) 10 mg INH Q2H PRN PRN Reason: CRAVING Last Admin: 02/01/17 08:42 Dose: 10 mg Nicotine (Nicotine Patch 21 Mg/24 Hr*) 1 patch TRANSDERM DAILY [facility] Last Admin: 02/01/17 08:41 Dose: 1 patch Nicotine (Nicotine Inhaler*) 10 mg INH Q2H PRN PRN Reason: CRAVING Nicotine Polacrilex (Nicotine Gum*) 2 mg PO Q2H PRN PRN Reason: CRAVING Last Admin: 01/31/17 19:58 Dose: 2 mg Omeprazole (Prilosec Cap*) 20 mg PO 0600 [facility] Last Admin: 02/01/17 07:41 Dose: 20 mg Ondansetron HCl (Zofran Tab*) 4 mg PO Q8H PRN PRN Reason: NAUSEA Pharmacy Profile Note (Nicotine Patch Removal Note*) 1 note PATCH OFF 2100 [facility] Thiamine HCl (Vitamin B-1 Tab*) 100 mg PO DAILY [facility] Last Admin: 02/01/17 08:42 Dose: 100 mg Throat Lozenges (Chloraseptic Marisa*) 1 marisa PO Q6H PRN PRN Reason: SORE THROAT Last Admin: 02/01/17 08:43 Dose: 1 marisa - Discharge Plan Discharge Plan: Drug/Alcohol Rehab
--- NOTE | 2017-02-01 14:07 | PN ---
MHU: Group Therapy Note - Service Type Service Type: [id number] Group Psychotherapy - Cognitive Behavioral Group Therapy ( CBT):Patient was attentive and participatory in CBT programming this morning, and remained in good behavioral control. Patient expressed positive insights regarding relevant treatment interventions and goals.
[2017-02-01] MEDS: Nicotine GUM* 2 MG PO PRN ×2 (17:31→20:25)
[2017-02-01] MEDS: Mirtazapine TAB* 15 MG PO SCH (20:23)
[2017-02-02] MEDS: Omeprazole CAP* 20 MG PO SCH (05:51)
[2017-02-02 07:42] VITALS: BP 114/68
[2017-02-02] MEDS: Nicotine GUM* 2 MG PO PRN (08:27)
[2017-02-02] MEDS: Vitamin THERAPEUTIC TAB PO SCH (08:28)
[2017-02-02] MEDS: Thiamine TAB* 100 MG TAB PO SCH (08:28)
[2017-02-02] MEDS: busPIRone TAB* 15 MG PO SCH (08:28)
[2017-02-02] MEDS: buPROPion SR TAB.SR* 150 MG PO SCH (08:28)
[2017-02-02] MEDS: Nicotine Inhaler* 10 MG AMP INH PRN (08:28)
[2017-02-02] MEDS: Nicotine PATCH 21 MG/24 HR* PATCH TRANSDERM SCH (08:28)
[2017-02-02] MEDS: cloNIDine TAB* 0.1 MG PO SCH (08:28)
--- NOTE | 2017-02-02 11:20 | PN ---
MHU: Group Therapy Note - Service Type Service Type: [id number] Group Psychotherapy - Cognitive Behavioral Group Therapy ( CBT):Patient was attentive and participatory in CBT programming this morning, and remained in good behavioral control. Patient expressed positive insights regarding relevant treatment interventions and goals.
--- NOTE | 2017-02-02 22:57 | DS ---
DISCHARGE SUMMARY: DATE OF ADMISSION: 01/27/17 DATE OF DISCHARGE: 02/02/17 DISCHARGE DIAGNOSES: As follows: [place] I: Alcohol-induced mood disorder; alcohol use disorder; anxiety disorder , not otherwise specified by history. [place] II: Deferred. [place] III: History of alcoholic hepatitis, gastroesophageal reflux disorder, chronic back pain, arthritis, history of alcohol withdrawal seizures. [place] IV: Severe housing stressors. [place] V: At the time of admission was 43 and at the time of discharge is 58. CONDITION AT THE TIME OF DISCHARGE: Stable. The patient is calm and cooperative. He is in agreement with the discharge plan to be transferred to the [facility] where he will undergo 28-day inpatient substance abuse rehab. The patient has housing in the community and will be following up thereafter with [facility] when he returns to this area. The patient has denied suicidal ideations consistently throughout his stay and has been safe on all checks. We have successfully detoxified him, given his normal vital signs in his absence of apparent withdrawal symptoms. MENTAL STATUS EXAM: At the time of discharge is as follows: The patient is a middle-aged white male, appearing to be slightly older than his stated age. He is wearing comfortable street clothing. He has good eye contact. He is calm and cooperative. On exam, speech has normal rate, tone, and volume. Mood is euthymic with a full affect. Thought process is linear and goal directed. Thought content is significant for his desire to get into rehab. He denies suicidal or homicidal ideations. He denies auditory or visual hallucinations. Insight and judgment appeared to be fair given his willingness to follow through with inpatient rehab. Cognitively, he is awake and alert with what would appear to be an average intellect. DISCHARGE INSTRUCTIONS: To the patient are as follows: A. Medications: The patient is takin. Remeron 30 mg nightly. 2. Omeprazole 20 mg daily. 3. Wellbutrin SR 150 mg p.o. daily. 4. BuSpar 15 mg p.o. b.i.d. 5. Atarax 25 mg as needed for anxiety. B. Diet: Regular. C. Activities: As tolerated. The patient is strongly encouraged to abstain from tobacco products; however, he is declining the offer of continued nicotine replacement therapy, stating his preference to continue smoking cigarettes for the time being. D. Followup care: The patient will be a direct transfer to the [facility] where he will undergo intensive inpatient substance abuse recovery services. Thereafter, it is likely that he will return to [facility] where he already has an open case at [facility]. His appointments will be established at his time of discharge from his rehab facility. HOSPITAL COURSE: Part-A: Reason for admission: Mr. Lord is a 51-year-old single white male with a history of alcohol abuse and anxiety, who arrived at our emergency room seeking voluntary hospitalization for anxiety and suicidal ideations in the context of severe misuse of alcohol. He states that he relapsed on alcohol several months ago, has been using large amounts of this substance and is afraid that if he discontinues it, he will go through withdrawal symptoms. He notes that after his most recent admission to our unit in April of 2016, he went to the [facility] in [place], [place], but only maintained sobriety a couple of months before relapsing. At this time, he is seeking referral to a new substance abuse recovery program. It is notable that the patient is somewhat needy and demanding. He is complaining of being overlooked, throwing papers on our unit, and demanding immediate service by a doctor and a systems requirements planner. When I do meet with him, he is upset that he has not received benzodiazepine treatment for withdrawal. I did explain that the protocol that we use which is called the WAM is one in which we only use lorazepam on the basis of objective psychological signs related to blood pressure and heart rate monitoring. The patient continues to state that he would not be safe if he was discharged to the street. Part-B: Psychiatric treatment rendered: The patient was admitted to the Adult Behavioral Health Unit, and he was placed on q.30-minute checks for his own safety as well as the [facility] protocol for alcohol detoxification. He only required lorazepam on one occasion and did not show any other evidence of withdrawal thereafter. We also started him on his outpatient medications including Wellbutrin, BuSpar, hydroxyzine, omeprazole, and Remeron. We also added temporary trial of clonidine 0.1 mg t.i.d. to keep him more comfortable. After several days, it was clear that he was no longer at any risk for alcohol withdrawal symptoms and we sent a referral packet out to several available rehabs. Ultimately, he was accepted by the [facility] in [place], [place]. He has a Medicaid cab waiting him to take him there on the afternoon of discharge. At this point, the patient is calm, cooperative, and looking forward to getting into rehab. [id number]/[facility] #: [id number]
== END 2017-02-02 12:25 | DRG 775 ==
LOC: ED 10:28 → BSU 14:45
PROVIDERS: ADMIT Psychiatry & Neurology Psychiatry; ATTEND Psychiatry & Neurology Psychiatry
PROC: HZ2ZZZZ Detoxification Services for Substance Abuse Treatment (ICD-10-PCS; principal; 2017-01-27)
DX: F10.24 Alcohol dependence with alcohol-induced mood disorder (principal); F10.239 Alcohol dependence with withdrawal, unspecified; R45.851 Suicidal ideations; K70.10 Alcoholic hepatitis without ascites; Y90.0 Blood alcohol level of less than 20 mg/100 ml; F41.9 Anxiety disorder, unspecified; K21.9 Gastro-esophageal reflux disease without esophagitis; M54.9 Dorsalgia, unspecified; M19.90 Unspecified osteoarthritis, unspecified site; F17.210 Nicotine dependence, cigarettes, uncomplicated; Z79.899 Other long term (current) drug therapy; Z88.8 Allergy status to other drugs, medicaments and biological substances
CPT/HCPCS: 36415; 80053; 80307; 80320; 80329; 81003; 84443; 85025; 90853; 99222; 99231; 99238; A9270-GY; G0480

== ENCOUNTER → 2017-03-01 08:23 | Emergency (ER) | payer OTHER ==
[~2017-03-01 08:23] MED LIST: Magnesium Sulfate 1 GM IV* 1 GM/100 ML BAG IV ONE; Thiamine IV* 100 MG, Folic Acid IV* 1 MG, Multiple Vitamin IV ADULT* 10 ML in NS 0.9% 1... IV ONE
[2017-03-01 09:50] LABS: Hematocrit 51 % (42-52); Hemoglobin 17.6 g/dl (14.0-18.0); Mean Corpuscular HGB Conc 35 g/dl (31-36); Mean Corpuscular Hemoglobin 32 pg (27-31); Mean Corpuscular Volume 92 fL (80-94); Mean Platelet Volume 8 um3 (7.4-10.4); Red Blood Count 5.47 10^6/ul (4.0-5.4); Red Cell Distribution Width 13 % (10.5-15); White Blood Count 9.2 10^3/ul (3.5-10.8)
[2017-03-01 10:08] LABS: Alcohol < 10 mg/dL (<10)
[2017-03-01 10:11] LABS: ALT 62 U/L (7-52); AST 54 U/L (13-39); Albumin 4.8 g/dL (3.2-5.2); Alkaline Phosphatase 100 U/L (34-104); Anion Gap 11 mmol/L (2-11); BUN/Creatinine Ratio 13.7 (8-20); Blood Urea Nitrogen 13 mg/dL (6-24); CO2 Carbon Dioxide 25 mmol/L (22-32); Calcium 9.7 mg/dL (8.6-10.3); Chloride 103 mmol/L (101-111); EGFR African American 106.7 (>60); EGFR Non-African American 82.9 (>60); Globulin 2.1 g/dL (2-4); Glucose 99 mg/dL (70-100); Magnesium 2.1 mg/dL (1.9-2.7); Sodium 139 mmol/L (133-145); Total Protein 6.9 g/dL (6.4-8.9)
[2017-03-01 11:34] VITALS: BP 139/82
--- NOTE | 2017-03-01 13:00 | ED ---
Rochelle, DoctorLydia, scribed for Isaias Nicholas MD on 03/01/17 at 0857 . Complex/Multi-Sys Presentation - HPI Summary HPI Summary: 51 year old male arrived to [facility] c/o liver pain and alcohol withdrawal symptoms. He reports suffering a seizure yesterday evening while drinking, and waking up this morning with liver pain as well as diaphoresis, N/V/D, shaking, and mild hallucinations. Pt was recently admitted to a rehab center where he stayed for 14 days; he left 2 weeks ago and immediately began drinking again. Pt reports that he has been drinking heavily since leaving rehab (around 20 drinks/day). - History Of Current Complaint Chief Complaint: EDDetoxRequest Time Seen by Provider: 03/01/17 08:34 Hx Obtained From: Patient Onset/Duration: Lasting Days Timing: Constant Severity Currently: Moderate Severity Initially: Moderate Associated Signs And Symptoms: Positive: Nausea, Vomiting, Diarrhea, Diaphoresis , Other - Liver Pain, recent seizure, shaking, hallucinations. Negative: Fever - Allergies/Home Medications Allergies/Adverse Reactions: Allergies Allergy/AdvReac Type Severity Reaction Status Date / Time Topiramate [From Topamax] AdvReac Muscle Ache Verified 01/27/17 17:39 PMH/Surg Hx/FS Hx/Imm Hx Endocrine/Hematology History: Denies: Hx Blood Transfusions, Hx Thyroid Disease Respiratory History: Reports: Hx Pneumonia, Hx Seasonal Allergies GI History: Reports: Hx Cirrhosis, Hx Gastroesophageal Reflux Disease, Hx Ulcer Musculoskeletal History: Reports: Hx Arthritis, Hx Back Problems, Hx Gout, Other Musculoskeletal History - b/l leg pain Sensory History: Reports: Hx Contacts or Glasses - READING Denies: Hx Hearing Aid Opthamlomology History: Reports: Hx Contacts or Glasses - READING Neurological History: Reports: Hx Headaches, Hx Migraine, Hx Seizures Denies: Hx Spinal Cord Injury Psychiatric History: Reports: Hx Anxiety, Hx Depression, Hx Inpatient Treatment , Hx Community Mental Health Tx, Hx Suicide Attempt, Hx Substance Abuse Denies: Hx Eating Disorder, Hx Post Traumatic Stress Disorder, Hx of Violent Episodes Against Others - Surgical History Surgery Procedure, Year, and Place: none - Immunization History Date of Tetanus Vaccine: PT STATES UNSURE Date of Influenza Vaccine: NONE Infectious Disease History: Reports: Hx Hepatitis - Alcoholic hepatitis, Hx of Known/Suspected MRSA Denies: Traveled Outside the US in Last 30 Days - Family History Known Family History: Positive: Other - EtOH abuse, bipolar disorder, colon ca, - Social History Alcohol Use: Daily Alcohol Amount: 10-20 drinks per day Hx Substance Use: Yes Substance Use Type: Reports: Marijuana Substance Use Comment - Amount & Last Used: 10/01/16 Hx Tobacco Use: Yes Smoking Status (MU): Heavy Every Day Tobacco Smoker Type: Cigarettes Amount Used/How Often: 1 pack a day Length of Time of Smoking/Using Tobacco: 30 years Have You Smoked in the Last Year: Yes Review of Systems Positive: Skin Diaphoresis. Negative: Fever Positive: Vomiting, Diarrhea, Nausea, Other - liver pain Neurological: Other - shaking/tremors, hallucinations, recent seizure All Other Systems Reviewed And Are Negative: Yes Physical Exam Triage Information Reviewed: Yes Vital Signs On Initial Exam: Initial Vitals Temp Pulse Resp BP 96.4 F 110 20 154/89 03/01/17 08:24 03/01/17 08:24 03/01/17 08:24 03/01/17 08:24 Vital Signs Reviewed: Yes Appearance: Positive: Well-Appearing, No Pain Distress Skin: Positive: Warm, Skin Color Reflects Adequate Perfusion, Dry Head/Face: Positive: Normal Head/Face Inspection Eyes: Positive: Normal ENT: Positive: Normal ENT inspection Neck: Positive: Supple, Nontender Respiratory/Lung Sounds: Positive: Clear to Auscultation, Breath Sounds Present Cardiovascular: Positive: RRR Abdomen Description: Positive: Nontender, Soft Bowel Sounds: Positive: Present Musculoskeletal: Positive: Normal Neurological: Positive: Normal Psychiatric: Positive: Normal Diagnostics - Vital Signs Vital Signs Temp Pulse Resp BP 03/01/17 08:24 96.4 F 110 20 154/89 - Laboratory Lab Results: Lab Results 03/01/17 03/01/17 03/01/17 Range/Units 09:25 09:25 09:25 WBC 9.2 (3.5-10.8) 10^3/ul RBC 5.47 H (4.0-5.4) 10^6/ul Hgb 17.6 (14.0-18.0) g/dl Hct 51 (42-52) % MCV 92 (80-94) fL MCH 32 H (27-31) pg MCHC 35 (31-36) g/dl RDW 13 (10.5-15) % Plt Count 172 (150-450) 10^3/ul MPV 8 (7.4-10.4) um3 Neut % (Auto) 74.8 (38-83) % Lymph % (Auto) 18.3 L (25-47) % Ector % (Auto) 6.1 (1-9) % Eos % (Auto) 0.4 (0-6) % Baso % (Auto) 0.4 (0-2) % Absolute Neuts (auto) 6.9 (1.5-7.7) 10^3/ul Absolute Lymphs (auto) 1.7 (1.0-4.8) 10^3/ul Absolute Monos (auto) 0.6 (0-0.8) 10^3/ul Absolute Eos (auto) 0 (0-0.6) 10^3/ul Absolute Basos (auto) 0 (0-0.2) 10^3/ul Absolute Nucleated RBC 0.02 10^3/ul Nucleated RBC % 0.2 Sodium 139 (133-145) mmol/L Potassium 4.0 (3.5-5.0) mmol/L Chloride 103 (101-111) mmol/L Carbon Dioxide 25 (22-32) mmol/L Anion Gap 11 (2-11) mmol/L BUN 13 (6-24) mg/dL Creatinine 0.95 (0.67-1.17) mg/dL Est GFR ( Amer) 106.7 (>60) Est GFR (Non-Af Amer) 82.9 (>60) BUN/Creatinine Ratio 13.7 (8-20) Glucose 99 (70-100) mg/dL Calcium 9.7 (8.6-10.3) mg/dL Magnesium 2.1 (1.9-2.7) mg/dL Total Bilirubin 1.40 H (0.2-1.0) mg/dL AST 54 H (13-39) U/L ALT 62 H (7-52) U/L Alkaline Phosphatase 100 (34-104) U/L Ammonia 42 (16-53) mol/L Troponin I 0.00 (<0.04) ng/mL Total Protein 6.9 (6.4-8.9) g/dL Albumin 4.8 (3.2-5.2) g/dL Globulin 2.1 (2-4) g/dL Albumin/Globulin Ratio 2.3 (1-3) Serum Alcohol < 10 (<10) mg/dL Result Diagrams: 03/01/17 09:25 03/01/17 09:25 Lab Statement: Any lab studies that have been ordered have been reviewed, and results considered in the medical decision making process. Re-Evaluation - Re-Evaluation First Eval Re-Evaluation Time: 11:14 Complex Multi-Symp Course/Dx Course Of Treatment: Mr. Lord did not remain abstinent for even a day after his rehab which was limited to two weeks by his insurance company. He has been drinking heavily and is feeling bad again. I tried to rehydrate him and give him a banana bag as well as magnesium but he wanted to leave. I recommended F/ U. - Diagnoses Provider Diagnoses: Alcohol abuse Discharge - Discharge Plan Condition: Stable Disposition: HOME Patient Education Materials: Abuse of Alcohol (ED) Referrals: Rick Aleman MD [Primary Care Provider] - The documentation as recorded by the Doctor lutz Tahera accurately reflects the service I personally performed and the decisions made by me, Isaias Nicholas MD.
== END | disposition home or self-care (01) ==
LOC: ED 08:23
DX: F10.10 Alcohol abuse, uncomplicated (principal); K70.10 Alcoholic hepatitis without ascites
CPT/HCPCS: 36415; 80053; 80320; 82140; 83735; 84484; 85025; 96360; 96374; 99284; G0480

== ENCOUNTER 2017-04-17 15:30 | Emergency (ER) | payer OTHER ==
[2017-04-17 17:01] VITALS: BP 130/82
--- NOTE | 2017-05-02 14:44 | ED ---
Skin Complaint - HPI Summary HPI Summary: pt came to ED for eval of bruise to inner left arm. pt states he was here 3-4 days ago and had an IV infiltrate. pt states site is painful. bruise noted. He is able to flex and extend elbow without pain or compromise. He was admitted to [facility] for alcohol withdrawal and suicidal thoughts and was discharged home yesterday. He states he is feeling better and has follow up, but is concerned about the bruise over his arm. - History of Current Complaint Chief Complaint: EDExtremityUpper Time Seen by Provider: 04/17/17 16:37 Stated Complaint: ARM INJURY Hx Obtained From: Patient Onset/Duration: Started Days Ago Skin Exposure Onset/Duration: Days Ago Timing: Constant Onset Severity: Moderate Current Severity: Moderate Pain Intensity: 0 Pain Scale Used: 0-10 Numeric Skin Location: Discrete - left antecubital fossa Character: Redness Aggravating Symptom(s): Nothing Alleviating Symptom(s): Nothing Related History: Trauma - Additional Pertinent History Primary Care Physician: CRYSTAL - Allergy/Home Medications Allergies/Adverse Reactions: Allergies Allergy/AdvReac Type Severity Reaction Status Date / Time Topiramate [From Topamax] AdvReac Muscle Ache Verified 04/17/17 15:32 PMH/Surg Hx/FS Hx/Imm Hx Previously Healthy: Yes Endocrine/Hematology History: Denies: Hx Blood Transfusions, Hx Thyroid Disease Respiratory History: Reports: Hx Pneumonia, Hx Seasonal Allergies GI History: Reports: Hx Cirrhosis, Hx Gastroesophageal Reflux Disease, Hx Ulcer Musculoskeletal History: Reports: Hx Arthritis, Hx Back Problems, Hx Gout, Other Musculoskeletal History - b/l leg pain Sensory History: Reports: Hx Contacts or Glasses - READING Denies: Hx Hearing Aid Opthamlomology History: Reports: Hx Contacts or Glasses - READING Neurological History: Reports: Hx Headaches, Hx Migraine, Hx Seizures Denies: Hx Spinal Cord Injury Psychiatric History: Reports: Hx Anxiety, Hx Depression, Hx Inpatient Treatment , Hx Community Mental Health Tx, Hx Suicide Attempt, Hx Substance Abuse Denies: Hx Eating Disorder, Hx Post Traumatic Stress Disorder, Hx of Violent Episodes Against Others - Surgical History Surgery Procedure, Year, and Place: none - Immunization History Date of Tetanus Vaccine: PT STATES UNSURE Date of Influenza Vaccine: NONE Hx Pertussis Vaccination: No Immunizations Up to Date: Unable to Obtain/Confirm Infectious Disease History: Yes Infectious Disease History: Reports: Hx Hepatitis - Alcoholic hepatitis, Hx of Known/Suspected MRSA Denies: Traveled Outside the US in Last 30 Days - Family History Known Family History: Positive: Other - EtOH abuse, bipolar disorder, colon ca, - Social History Occupation: Employed Full-time Lives: Alone Alcohol Use: Daily Alcohol Amount: 10-20 drinks per day Hx Substance Use: Yes Substance Use Type: Reports: Marijuana Substance Use Comment - Amount & Last Used: 10/01/16 Hx Tobacco Use: Yes Smoking Status (MU): Heavy Every Day Tobacco Smoker Type: Cigarettes Amount Used/How Often: 1 pack a day Length of Time of Smoking/Using Tobacco: 30 years Have You Smoked in the Last Year: Yes Review of Systems Constitutional: Negative Eyes: Negative Cardiovascular: Negative Respiratory: Negative Musculoskeletal: Negative Positive: Bruising - left antecubital fossa Neurological: Negative Positive: Anxious, Depressed All Other Systems Reviewed And Are Negative: Yes Physical Exam Triage Information Reviewed: Yes Vital Signs On Initial Exam: Initial Vitals Temp Pulse Resp BP Pulse Ox 98.6 F 86 18 124/81 98 04/17/17 15:33 04/17/17 15:33 04/17/17 15:33 04/17/17 15:33 04/17/17 15:33 Vital Signs Reviewed: Yes Appearance: Positive: Well-Appearing, Well-Nourished Skin: Positive: Warm, Skin Color Reflects Adequate Perfusion, Other - left antecubital fossa Head/Face: Positive: Normal Head/Face Inspection Eyes: Positive: Normal, LAYNE, Conjunctiva Clear Neck: Positive: Supple, Nontender, No Lymphadenopathy Respiratory/Lung Sounds: Positive: Clear to Auscultation, Breath Sounds Present Cardiovascular: Positive: Normal, RRR, Pulses are Symmetrical in both Upper and Lower Extremities Musculoskeletal: Positive: Normal, Strength/ROM Intact Neurological: Positive: Alert, Oriented to Person Place, Time, Speech Normal Psychiatric: Positive: Normal AVPU Assessment: Alert - Delgado Coma Scale Best Eye Response: 4 - Spontaneous Best Motor Response: 6 - Obeys Commands Best Verbal Response: 5 - Oriented Diagnostics - Vital Signs Vital Signs Temp Pulse Resp BP Pulse Ox 04/17/17 16:59 98.3 F 78 16 130/82 04/17/17 15:33 98.6 F 86 18 124/81 98 - Laboratory Lab Statement: Any lab studies that have been ordered have been reviewed, and results considered in the medical decision making process. Course/Dx - Course Course Of Treatment: Patient was re-assured the bruised area over the elbow was d/t IV infiltrate and there are no signs of infection. Bruising is noted over the antecubital fossa. Patient is able to flex and extend at the elbow without pain. Patient OK with discharge and will return for worsneing symptoms. - Diagnoses Provider Diagnoses: IV infiltrate Discharge - Discharge Plan Condition: Stable Disposition: HOME Patient Education Materials: IV Infiltration (ED) Referrals: Rick Aleman MD [Primary Care Provider] - Additional Instructions: Moist heat to the area Ibuprofen or Tylenol for any pain associated Continue to move arm as normal to promote blood flow. Red streaking, worsening warmth or pain, come back to ED right away.
== END 2017-04-17 17:01 | disposition home or self-care (01) ==
LOC: ED 15:30
DX: T80.89XA Other complications following infusion, transfusion and therapeutic injection, initial encounter (principal); X58.XXXA Exposure to other specified factors, initial encounter; Y93.9 Activity, unspecified; Y92.9 Unspecified place or not applicable
CPT/HCPCS: 99281

== ENCOUNTER 2017-06-03 07:26 | Inpatient (IN) | payer OTHER ==
[2017-06-03] MEDS ORDERED: LORazepam TAB(*) 1 MG PO ONE (07:52)
[2017-06-03 08:24] LABS: Hematocrit 48 % (42-52); Hemoglobin 16.4 g/dl (14.0-18.0); Mean Corpuscular HGB Conc 34 g/dl (31-36); Mean Corpuscular Hemoglobin 33 pg (27-31); Mean Corpuscular Volume 96 fL (80-94); Mean Platelet Volume 7 um3 (7.4-10.4); Red Blood Count 4.98 10^6/ul (4.0-5.4); Red Cell Distribution Width 13 % (10.5-15); White Blood Count 4.7 10^3/ul (3.5-10.8)
[2017-06-03 08:33] LABS: Urine Bacteria Absent (Absent); Urine Bilirubin Negative (Negative); Urine Glucose Negative (Negative); Urine Nitrite Negative (Negative)
[2017-06-03 08:38] LABS: ALT 48 U/L (7-52); AST 60 U/L (13-39); Albumin 4.5 g/dL (3.2-5.2); Alkaline Phosphatase 70 U/L (34-104); Anion Gap 9 mmol/L (2-11); Blood Urea Nitrogen 8 mg/dL (6-24); CO2 Carbon Dioxide 28 mmol/L (22-32); Calcium 9.5 mg/dL (8.6-10.3); Chloride 102 mmol/L (101-111); EGFR Non-African American 101.1 (>60); Globulin 2.4 g/dL (2-4); Glucose 108 mg/dL (70-100); Potassium 3.9 mmol/L (3.5-5.0); Sodium 139 mmol/L (133-145); Total Protein 6.9 g/dL (6.4-8.9)
[2017-06-03 08:42] LABS: Benzodiazepine Urine Screen None Detected (None Detect)
[2017-06-03 09:00] LABS: Acetaminophen < 15 mcg/mL; Alcohol < 10 mg/dL (<10); Salicylate < 2.50 mg/dL (<30)
[2017-06-03] MEDS ORDERED: Loperamide CAP* 4 MG INITIAL PRN DOSE PO ONE (09:00)
[2017-06-03 09:09] LABS: TSH (Thyroid Stimulating Horm) 0.84 mcIU/mL (0.34-5.60)
[2017-06-03] MEDS ORDERED: Acetaminophen TAB* 325 MG PO ONE (09:46)
[2017-06-03] MEDS ORDERED: Vitamin THERAPEUTIC TAB PO SCH (14:00)
[2017-06-03] MEDS ORDERED: Mouth Piece, Nicotine* 1 EACH CARTRIDGE ONE (16:03)
[2017-06-03] MEDS: Nicotine Inhaler* 10 MG AMP INH PRN (16:11)
[2017-06-03] MEDS: Nicotine GUM* 2 MG PO PRN (16:11)
[2017-06-03] MEDS ORDERED: cloNIDine TAB* 0.1 MG ONE (16:23)
[2017-06-03] MEDS ORDERED: cloNIDine TAB* 0.4 FIRST DOSE PT > 70 KG PO ONE (18:00)
[2017-06-03] MEDS ORDERED: Mirtazapine TAB* 15 MG ONE (19:40)
[2017-06-03] MEDS: cloNIDine TAB* 0.1 MG Q4H DAYS 1 TO 4 PO SCH ×2 (19:47→22:25)
[2017-06-03] MEDS: Carisoprodol TAB* 350 MG Q6H PRN PO (20:02)
[2017-06-03] MEDS: Mirtazapine TAB* 15 MG PO SCH (20:03)
[2017-06-04] MEDS ORDERED: hydrOXYzine HCL TAB* 50 MG ONE (05:21)
[2017-06-04] MEDS: cloNIDine TAB* 0.1 MG Q4H DAYS 1 TO 4 PO SCH ×6 (05:21→22:08)
[2017-06-04] MEDS: hydrOXYzine HCL TAB* 50 MG PO PRN ×2 (05:21→11:34)
[2017-06-04] MEDS: Carisoprodol TAB* 350 MG Q6H PRN PO ×3 (05:22→17:57)
[2017-06-04] MEDS: Loperamide CAP* 2 MG AFTER EACH LOOSE STOOL MDD 16 MG PO PRN ×2 (08:11→20:47)
[2017-06-04] MEDS: Ibuprofen TAB* 400 MG Q6H PRN PO ×2 (08:11→14:27)
[2017-06-04] MEDS: buPROPion SR TAB.SR* 150 MG PO SCH (08:17)
[2017-06-04] MEDS: Al Hydrox/Mg Hydrox/Simet LIQ* 30 ML UDC PO PRN ×2 (08:33→17:57)
[2017-06-04] MEDS: Nicotine Inhaler* 10 MG AMP INH PRN ×2 (08:33→14:27)
[2017-06-04] MEDS: Omeprazole CAP* 20 MG PO SCH (08:41)
[2017-06-04] MEDS: Nicotine GUM* 2 MG PO PRN ×4 (08:57→20:04)
[2017-06-04] MEDS: Vitamin THERAPEUTIC TAB PO SCH (10:11)
[2017-06-04] MEDS: cloNIDine TAB* 0.1 MG ADDITIONAL PRN DOSES DAYS 1-4 PO (11:35)
[2017-06-04] MEDS: Acetaminophen TAB* 325 MG PO PRN (14:26)
--- NOTE | 2017-06-04 19:01 | HP ---
PSYCHIATRIC HISTORY AND PHYSICAL: DATE OF ADMISSION: 06/03/17 JUSTIFICATION FOR ADMISSION: The patient is in need of 24-hour supervision and care secondary to suicidal ideations voiced within 72 hours of admission. CHIEF COMPLAINT: "I need to get into rehab." HISTORY OF PRESENT ILLNESS: The patient is a 51-year-old single white male with a history of alcohol and benzodiazepine abuse as well as anxiety, who arrived at our emergency room seeking voluntary hospitalization for anxiety and suicidal ideations in the context of severe misuse of alcohol. The patient is well known to me secondary to a history of 16 prior psychiatric admissions here at [facility] with the most recent being under my service between 12/25 and 04/13/17. At that time, he was discharged to his home in [place] and claims to have been sober for approximately 3 weeks before resuming drinking again. He indicates that he is extremely depressed and considering killing himself by hanging himself or placing a plastic bag over his head. The patient is telling me that living in [place] does not work for him, because too many of his triggers are here in this town. He says that he would like to get into a rehab and move apartments and go to a different city. The patient was somewhat sedated from some oral lorazepam that he had received in the emergency room prior to admission. He was calm and cooperative and stating that he would do what it took to get into a rehab program followed by [facility] in a different community. Symptomatically, he is complaining of a depressed mood and anxiety. He denies any history of zara or psychosis in the past. PAST PSYCHIATRIC HISTORY: He has had multiple past psychiatric hospitalizations both in drug rehab facilities as well as [facility] in [place] and 16 prior [facility] psychiatric admissions. His most recent hospitalization was at the beginning of April in 2017 under my service. He has had multiple housing placements through [facility], most recently he has been seen by Alberta Calloway at [facility], although he acknowledges that he has not been compliant with medications or making his followup appointments with her. He denies any formal history of suicide attempts. SUBSTANCE ABUSE HISTORY: The patient has been binging on approximately 20 to 25 beers per day with the last beer consumed 1 day prior to presentation in the emergency room. He indicates that he occasionally smokes cannabis, although his urine drug screen is negative at this time. He has taken naltrexone in the past. He denies any history of opioid abuse. The patient states that he has taken hallucinogens approximately 30 times in his life, serum alcohol was negative at the time of admission. PAST MEDICAL HISTORY: Significant for alcoholic hepatitis, gastroesophageal reflux disease, chronic back pain, chronic arthritis, alcohol withdrawal seizures. CURRENT HOME MEDICATIONS: Include: 1. Remeron 30 mg p.o. q.h.s. 2. Omeprazole 10 mg daily. 3. Wellbutrin SR 150 mg daily. 4. Atarax 25 mg up to 4 times daily for anxiety. ALLERGIES: He states he is allergic to TOPIRAMATE. SOCIAL HISTORY: The patient lives in a rooming house. He has 2 brothers and a sister. His apartment is supported by [address]. He indicates that he has one brother doing well in [place] and another brother here in this area, who has been clean and sober for 13 years. He also has a sister in [place], who abuses heroin. The patient is single, never . No children. 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 REVIEW OF SYSTEMS: The patient complains of tremulousness and anxiety from alcohol withdrawal. Other than that, he denies headache or double vision. Denies sore throat, cough, chest pain, or difficulty breathing. He denies abdominal pain, nausea, vomiting, diarrhea, or constipation. He denies difficulty ambulating, enlarged lymph nodes, rashes, fevers or changes in weight. PHYSICAL EXAMINATION VITAL SIGNS: Blood pressure 138/91, heart rate 80, respiratory rate 16, temperature is 99.4 degrees Fahrenheit, oxygen saturations are 100% on room air. HEENT: Head is normocephalic, atraumatic. NECK: Supple. CHEST: Clear to auscultation bilaterally. CARDIAC: Reveals normal heart sounds. ABDOMEN: Soft and nontender. MUSCULOSKELETAL: Reveals no signs of edema. NEUROLOGICAL: He is grossly intact with mild tremor. SKIN: Warm and dry. MENTAL STATUS EXAM: The patient is a middle-aged male, appearing slightly older than his stated age. He is wearing green patient scrubs. He has fairly good eye contact. He is calm and cooperative. Speech has a normal rate, tone, and volume. Mood is anxious and depressed with a corresponding affect. Thought process is linear and goal directed. Thought content is significant for his desire to be detoxified and get into an inpatient rehab program. He is endorsing suicidal ideations with a plan to hang himself or asphyxiate himself with a plastic bag. He denies homicidality. He denies auditory or visual hallucinations. Insight and judgment appear to be fair given his willingness to come in to hospital voluntarily. Cognitively, he is awake and alert with what would appear to be an average intellect. LABORATORY DATA: CBC reveals an elevated MCV of 96, elevated MCH of 33, platelet count low at 121, lymphocyte percentage low at 17.5, absolute lymphocytes low at 0.8. Complete metabolic panel is significant for slightly elevated glucose at 108, slightly elevated AST 60. Urinalysis is within normal limits. Urine drug screen is negative for all substances tested including alcohol. DIAGNOSES: Bradford I: Alcohol-induced mood disorder, alcohol use disorder, and unspecified anxiety disorder by history. Bradford II: Deferred. Bradford III: History of alcohol hepatitis, gastroesophageal reflux disorder, chronic back pain, arthritis, history of alcohol withdrawal seizures. Bradford IV: Severe financial stressors. Bradford V: At this time is 43. IMPRESSION: The patient is a 51-year-old single white male with history of alcoholism, who arrives at our emergency room complaining of anxiety and suicidal thoughts related to severe over-utilization of alcohol. The acute stressor seems to be his realization that [place] is not appropriate environment for him and he is requesting a placement in an inpatient rehab setting and he would like to follow that up with residential treatment such as a [facility]. The patient has not been taking his prescribed medications nor has he been following up with Alberta Calloway at [facility]. At this time, he is requesting admission to the hospital where he can get some type of detoxification protocol and necessary referrals for forward care. PLAN: The patient is admitted to the adult behavioral health unit where he is placed on q.15-minute checks for his own safety. He has also been placed on alcohol withdrawal protocol utilizing clonidine. I have also prescribed his standing outpatient medications including Remeron, omeprazole, bupropion, and Atarax. He is requesting placement in an inpatient substance abuse rehabilitation facility and I think we should be supportive of this. While he is here, he is certainly encouraged to avail himself of all milieu treatments including individual and group therapies. [id number]/[facility] #: [id number] BHUMI
[2017-06-04] MEDS: Mirtazapine TAB* 15 MG PO SCH (20:02)
[2017-06-05] MEDS: cloNIDine TAB* 0.1 MG Q4H DAYS 1 TO 4 PO SCH ×6 (02:00→20:04)
[2017-06-05] MEDS: Carisoprodol TAB* 350 MG Q6H PRN PO ×2 (03:41→13:53)
[2017-06-05] MEDS: Loperamide CAP* 2 MG AFTER EACH LOOSE STOOL MDD 16 MG PO PRN ×3 (03:42→18:48)
[2017-06-05] MEDS: Omeprazole CAP* 20 MG PO SCH (06:05)
[2017-06-05] MEDS: Nicotine GUM* 2 MG PO PRN ×3 (06:05→13:53)
[2017-06-05] MEDS: buPROPion SR TAB.SR* 150 MG PO SCH (07:50)
[2017-06-05] MEDS: Vitamin THERAPEUTIC TAB PO SCH (07:51)
[2017-06-05] MEDS: Nicotine Inhaler* 10 MG AMP INH PRN ×2 (07:52→15:56)
[2017-06-05] MEDS: Acetaminophen TAB* 325 MG PO PRN ×2 (07:52→15:56)
[2017-06-05] MEDS: hydrOXYzine HCL TAB* 50 MG PO PRN (11:54)
[2017-06-05] MEDS: cloNIDine TAB* 0.1 MG ADDITIONAL PRN DOSES DAYS 1-4 PO (16:09)
--- NOTE | 2017-06-05 17:36 | PN ---
Subjective - Subjective Subjective: Diamond complains of alcohol withdrawal symptoms: shakiness, aches and pain, engages in benzo-seeking stances but is easily redirected. He denies SI/HI or A/ VH. He remains motivated for inpatient substance abuse treatment. Objective - Appearance Appearance: Healthy Appearing Dysmorphic Features: No Hygiene: Normal Grooming: Fairly Well Kept - Behavior Psychomotor Activities: Normal Exhibits Abnormal Movement: No - Attitude and Relatedness Attitude and Relatedness: Manipulative Eye Contact: Fair - Speech Quality: Unpressured Latencies: Normal Quantity: Appropriate - Mood Patient's Decription of Mood: "Anxious" - Affect Observed Affect: Constricted Affect Consistent with: Dysphoria - Thought Process Patient's Thought Process: Coherent, Goal Directed Thought Content: No Passive Wish, No Suicidal Planning, No Homicidal Ideation, No Paranoid Ideation - Sensorium Experiencing Hallucinations: No, Sensorium is Clear - Level of Consciousness Level of Consciousness: Alert Orientation: Yes Intact - Impulse Control Impulse Control: Intact - Insight and Judgement Insight and Judgement: Poor - Group Participation Particating in Group Activities: Yes - Medication Management Medication Management Adherence: Yes Assessment - Assessment Merits Inpatient Hospitalization: Consolid[facility] Improvements, For Discharge Planning Inpatient DSM-IV Dx: Alcohol dependence; Alcohol use disorder, severe. Clinical Impression: Progressing through alcohol detoxification with some discomfort, tolerating trials of mirtazapine, buproprion and hydroxyzine, remains motivated for inpatient substance abuse treatment. Plan - Plan Treatment Plan: Name: DIAMOND SEGURA Birthdate: 1965 [id number] Medications: Current Medications Acetaminophen (Tylenol Tab*) 650 mg PO Q4H PRN PRN Reason: for pain; or Temp >101 F Last Admin: 06/05/17 15:56 Dose: 650 mg Al Hydrox/Mg Hydrox/Simethicone (Maalox Plus*) 30 ml PO Q4H PRN PRN Reason: INDIGESTION Last Admin: 06/04/17 17:57 Dose: 30 ml Bupropion HCl (Wellbutrin Sr Tab*) 150 mg PO DAILY FREDDIE Last Admin: 06/05/17 07:50 Dose: 150 mg Carisoprodol (Soma Tab*) 350 mg PO Q6H PRN PRN Reason: MUSCLE CRAMPS/ACHING Last Admin: 06/05/17 13:53 Dose: 350 mg Clonidine HCl (Catapres Tab*) 0.1 mg PO Q4HR FREDDIE Stop: 06/06/17 23:59 Last Admin: 06/05/17 13:53 Dose: 0.1 mg Clonidine HCl (Catapres Tab*) 0 - 0.6 mg PO Q8HR FREDDIE Stop: 06/07/17 23:59 Clonidine HCl (Catapres Tab*) 0 - 0.3 mg PO Q8HR FREDDIE Stop: 06/08/17 23:59 Clonidine HCl (Catapres Tab*) 0 - 0.15 mg PO Q12HR FREDDIE PRN Reason: Protocol Stop: 06/09/17 23:59 Clonidine HCl (Catapres Tab*) 0.1 mg PO Q4H PRN PRN Reason: DETOX Stop: 06/06/17 23:59 Last Admin: 06/05/17 16:09 Dose: 0.1 mg Hydroxyzine HCl (Atarax Tab*) 50 mg PO Q6H PRN PRN Reason: AGITATION/ANXIETY/INSOMNIA Last Admin: 06/05/17 11:54 Dose: 50 mg Ibuprofen (Motrin Tab*) 400 mg PO Q6H PRN PRN Reason: BONE/JOINT PAIN Last Admin: 06/04/17 14:27 Dose: 400 mg Loperamide HCl (Imodium Cap*) 2 mg PO .SEE BELOW PRN PRN Reason: DIARRHEA Last Admin: 06/05/17 08:25 Dose: 2 mg Mirtazapine (Remeron Tab*) 30 mg PO BEDTIME [facility] Last Admin: 06/04/17 20:02 Dose: 30 mg Multivitamins (Theragran Tab*) 1 tab PO 0900 [facility] Last Admin: 06/05/17 07:51 Dose: 1 tab Nicotine (Nicotine Inhaler*) 10 mg INH Q2H PRN PRN Reason: CRAVING Last Admin: 06/05/17 15:56 Dose: 10 mg Nicotine Polacrilex (Nicotine Gum*) 2 mg PO Q2H PRN PRN Reason: CRAVING Last Admin: 06/05/17 13:53 Dose: 2 mg Omeprazole (Prilosec Cap*) 20 mg PO 0600 [facility] Last Admin: 06/05/17 06:05 Dose: 20 mg - Discharge Plan Discharge Plan: Drug/Alcohol Rehab
[2017-06-05] MEDS: Mirtazapine TAB* 15 MG PO SCH (20:04)
[2017-06-06] MEDS: hydrOXYzine HCL TAB* 50 MG PO PRN ×3 (00:03→20:02)
[2017-06-06] MEDS: Loperamide CAP* 2 MG AFTER EACH LOOSE STOOL MDD 16 MG PO PRN (00:03)
[2017-06-06] MEDS: Carisoprodol TAB* 350 MG Q6H PRN PO ×3 (00:03→19:30)
[2017-06-06] MEDS: cloNIDine TAB* 0.1 MG Q4H DAYS 1 TO 4 PO SCH ×8 (07:28→22:05)
[2017-06-06] MEDS: cloNIDine TAB* 0.1 MG ADDITIONAL PRN DOSES DAYS 1-4 PO ×3 (07:32→16:28)
[2017-06-06] MEDS: Omeprazole CAP* 20 MG PO SCH (07:33)
[2017-06-06] MEDS: Nicotine Inhaler* 10 MG AMP INH PRN ×2 (07:33→16:10)
[2017-06-06] MEDS: Vitamin THERAPEUTIC TAB PO SCH (08:18)
[2017-06-06] MEDS: buPROPion SR TAB.SR* 150 MG PO SCH (08:18)
[2017-06-06] MEDS: Nicotine GUM* 2 MG PO PRN ×5 (08:19→19:30)
[2017-06-06] MEDS: Acetaminophen TAB* 325 MG PO PRN ×2 (10:10→16:10)
[2017-06-06] MEDS: Mirtazapine TAB* 15 MG PO SCH (20:03)
[2017-06-07] MEDS: Omeprazole CAP* 20 MG PO SCH (05:59)
[2017-06-07] MEDS: Nicotine Inhaler* 10 MG AMP INH PRN ×6 (06:00→20:21)
[2017-06-07] MEDS: cloNIDine TAB* DOSING for DAY 5 PO SCH ×2 (06:00→13:14)
[2017-06-07] MEDS: Nicotine GUM* 2 MG PO PRN ×7 (06:00→20:21)
[2017-06-07] MEDS: Vitamin THERAPEUTIC TAB PO SCH (08:04)
[2017-06-07] MEDS: buPROPion SR TAB.SR* 150 MG PO SCH (08:05)
[2017-06-07] MEDS: Acetaminophen TAB* 325 MG PO PRN ×2 (11:12→16:55)
[2017-06-07] MEDS: hydrOXYzine HCL TAB* 50 MG PO PRN ×2 (12:32→17:53)
[2017-06-07] MEDS: Carisoprodol TAB* 350 MG Q6H PRN PO ×2 (12:32→17:53)
--- NOTE | 2017-06-07 13:05 | PN ---
Subjective - Subjective Service Type: 27780 Hosp care 15 min low complexity Subjective: The patient is seen by myself and SW Sharron Yu for follow up. Initially he was discussing his desire for discharge from the hospital back to his apartment here in [place], stating that he has bills to pay for the month of June and is fearful of losing his disability check. "I don't like these rehabs. It's all kids sent there from court who really don't want to be there. They call me ' Old man.' I don't like those places." Diamond is reminded that this is his 17th overall psychiatric hospitalization here on the [facility] and something has to change to get him sober. We also offer to contact his SSDI rep-payee so they can pay his bills. He then changes his mind and agrees to the referral process. He denies SI. Objective - Appearance Appearance: Well Developed/Nourished Dysmorphic Features: No Hygiene: Normal Grooming: Fairly Well Kept - Behavior Psychomotor Activities: Normal Exhibits Abnormal Movement: No - Attitude and Relatedness Attitude and Relatedness: Cooperative Eye Contact: Fair - Speech Quality: Unpressured Latencies: Normal Quantity: Appropriate - Mood Patient's Decription of Mood: "Fine" - Affect Observed Affect: Fair Affect Consistent with: Euthymia - Thought Process Patient's Thought Process: Coherent Thought Content: No Passive Wish, No Suicidal Planning, No Homicidal Ideation, No Paranoid Ideation - Sensorium Experiencing Hallucinations: No, Sensorium is Clear Type of Hallucinations: Visual: No, Auditory: No, Command: No - Level of Consciousness Level of Consciousness: Alert Orientation: No Intact, No Orientated to Time, No Orientated to Place, No Orientated to Person - Impulse Control Impulse Control: Tenuous - Insight and Judgement Insight and Judgement: Poor - Group Participation Particating in Group Activities: Yes - Medication Management Medication Management Adherence: Yes Assessment - Assessment Merits Inpatient Hospitalization: Consolidate Improvements, Pending Safe DC Plan Inpatient DSM-IV Dx: Alcohol dependence; Alcohol use disorder, severe. Clinical Impression: 51 y.o. single, white male with a history of alcohol abuse who is voluntarily admitted to the unit secondary to suicidal ideations and alcohol withdrawal symptoms. Plan - Plan Treatment Plan: Name: DIAMOND SEGURA Birthdate: 1965 [id number] We have resumed the patient's medications including mirtazapine, bupropion and hydroxyzine but have been avoiding benzo's due to his abuse history. We await referral to an inpatient substance abuse program. Continued Medication Management: Continue Outpt Medication Medications: Current Medications Acetaminophen (Tylenol Tab*) 650 mg PO Q4H PRN PRN Reason: for pain; or Temp >101 F Last Admin: 06/07/17 11:12 Dose: 650 mg Al Hydrox/Mg Hydrox/Simethicone (Maalox Plus*) 30 ml PO Q4H PRN PRN Reason: INDIGESTION Last Admin: 06/04/17 17:57 Dose: 30 ml Bupropion HCl (Wellbutrin Sr Tab*) 150 mg PO DAILY [facility] Last Admin: 06/07/17 08:05 Dose: 150 mg Carisoprodol (Soma Tab*) 350 mg PO Q6H PRN PRN Reason: MUSCLE CRAMPS/ACHING Last Admin: 06/07/17 12:32 Dose: 350 mg Clonidine HCl (Catapres Tab*) 0 - 0.6 mg PO Q8HR FREDDIE Stop: 06/07/17 23:59 Last Admin: 06/07/17 06:00 Dose: 0.1 mg Clonidine HCl (Catapres Tab*) 0 - 0.3 mg PO Q8HR FREDDIE Stop: 06/08/17 23:59 Clonidine HCl (Catapres Tab*) 0 - 0.15 mg PO Q12HR FREDDIE PRN Reason: Protocol Stop: 06/09/17 23:59 Hydroxyzine HCl (Atarax Tab*) 50 mg PO Q6H PRN PRN Reason: AGITATION/ANXIETY/INSOMNIA Last Admin: 06/07/17 12:32 Dose: 50 mg Ibuprofen (Motrin Tab*) 400 mg PO Q6H PRN PRN Reason: BONE/JOINT PAIN Last Admin: 06/04/17 14:27 Dose: 400 mg Loperamide HCl (Imodium Cap*) 2 mg PO .SEE BELOW PRN PRN Reason: DIARRHEA Last Admin: 06/06/17 00:03 Dose: 2 mg Mirtazapine (Remeron Tab*) 30 mg PO BEDTIME FREDDIE Last Admin: 06/06/17 20:03 Dose: 30 mg Multivitamins (Theragran Tab*) 1 tab PO 0900 FREDDIE Last Admin: 06/07/17 08:04 Dose: 1 tab Nicotine (Nicotine Inhaler*) 10 mg INH Q2H PRN PRN Reason: CRAVING Last Admin: 06/07/17 11:12 Dose: 10 mg Nicotine Polacrilex (Nicotine Gum*) 2 mg PO Q2H PRN PRN Reason: CRAVING Last Admin: 06/07/17 11:12 Dose: 2 mg Omeprazole (Prilosec Cap*) 20 mg PO 0600 [facility] Last Admin: 06/07/17 05:59 Dose: 20 mg - Discharge Plan Discharge Plan: Drug/Alcohol Rehab
[2017-06-07] MEDS: Mirtazapine TAB* 15 MG PO SCH (20:21)
[2017-06-08] MEDS: Omeprazole CAP* 20 MG PO SCH (05:59)
[2017-06-08] MEDS: Nicotine Inhaler* 10 MG AMP INH PRN ×7 (05:59→20:40)
[2017-06-08] MEDS: Nicotine GUM* 2 MG PO PRN ×7 (06:00→20:39)
[2017-06-08] MEDS ORDERED: cloNIDine TAB* DOSING for DAY 6 PO SCH (06:00)
[2017-06-08] MEDS: buPROPion SR TAB.SR* 150 MG PO SCH (07:49)
[2017-06-08] MEDS: Vitamin THERAPEUTIC TAB PO SCH (07:49)
[2017-06-08] MEDS: cloNIDine TAB* DOSING for DAY 5 PO SCH (07:50)
--- NOTE | 2017-06-08 12:06 | PN ---
Subjective - Subjective Service Type: 51754 Hosp care 15 min low complexity Subjective: Patient is seen by the treatment team, including myself, MARGARITA Mcdermott, Rec therapists Lita, nurse Kacie and psychologist Dr. Gibbs. Mr. Lord is gently confronted about his outburst last night on the unit in which he was screaming at staff and punched a wall. We review his treatment plan and he signs a Behavior Modification Plan, essentially agreeing to attend groups and be an active participant on the unit. He complains of anxiety and is agreeable with a resumption in his Buspar treatment. Diamond agrees also to continue to await transfer to a rehab but is equivocal about staying any more than a couple more days here awaiting that process. Objective - Appearance Appearance: Well Developed/Nourished Dysmorphic Features: No Hygiene: Normal Grooming: Well Kept - Behavior Psychomotor Activities: Normal Exhibits Abnormal Movement: No - Attitude and Relatedness Attitude and Relatedness: Cooperative Eye Contact: Fair - Speech Latencies: Normal Quantity: Appropriate - Mood Patient's Decription of Mood: "Anxious" - Affect Observed Affect: Tense Affect Consistent with: Dysphoria - Thought Process Patient's Thought Process: Coherent Thought Content: No Passive Wish, No Suicidal Planning, No Homicidal Ideation, No Paranoid Ideation - Sensorium Experiencing Hallucinations: No, Sensorium is Clear Type of Hallucinations: Visual: No, Auditory: No, Command: No - Level of Consciousness Level of Consciousness: Alert Orientation: No Intact, No Orientated to Time, No Orientated to Place, No Orientated to Person - Impulse Control Impulse Control: Poor - Insight and Judgement Insight and Judgement: Impaired - Group Participation Particating in Group Activities: No - Medication Management Medication Management Adherence: Yes Assessment - Assessment Merits Inpatient Hospitalization: Consolidate Improvements, Pending Safe DC Plan Inpatient DSM-IV Dx: Alcohol dependence; Alcohol use disorder, severe. Clinical Impression: 51 y.o. single, white male with a history of alcohol abuse who is voluntarily admitted to the unit secondary to suicidal ideations and alcohol withdrawal symptoms. Plan - Plan Treatment Plan: Name: DIAMOND LORD Birthdate: 1965 [id number] We have resumed the patient's medications including mirtazapine, bupropion and hydroxyzine but have been avoiding benzo's due to his abuse history. Restart buspirone 30mg PO BID. We await referral to an inpatient substance abuse program. Continued Medication Management: Continue Outpt Medication Medications: Current Medications Acetaminophen (Tylenol Tab*) 650 mg PO Q4H PRN PRN Reason: for pain; or Temp >101 F Last Admin: 06/07/17 16:55 Dose: 650 mg Al Hydrox/Mg Hydrox/Simethicone (Maalox Plus*) 30 ml PO Q4H PRN PRN Reason: INDIGESTION Last Admin: 06/04/17 17:57 Dose: 30 ml Bupropion HCl (Wellbutrin Sr Tab*) 150 mg PO DAILY [facility] Last Admin: 06/08/17 07:49 Dose: 150 mg Carisoprodol (Soma Tab*) 350 mg PO Q6H PRN PRN Reason: MUSCLE CRAMPS/ACHING Last Admin: 06/07/17 17:53 Dose: 350 mg Clonidine HCl (Catapres Tab*) 0.05 mg PO Q12HR FREDDIE PRN Reason: Protocol Stop: 06/09/17 23:59 Clonidine HCl (Catapres Tab*) 0.05 mg PO Q8HR FREDDIE Stop: 06/08/17 23:59 Hydroxyzine HCl (Atarax Tab*) 50 mg PO Q6H PRN PRN Reason: AGITATION/ANXIETY/INSOMNIA Last Admin: 06/07/17 17:53 Dose: 50 mg Ibuprofen (Motrin Tab*) 400 mg PO Q6H PRN PRN Reason: BONE/JOINT PAIN Last Admin: 06/04/17 14:27 Dose: 400 mg Loperamide HCl (Imodium Cap*) 2 mg PO .SEE BELOW PRN PRN Reason: DIARRHEA Last Admin: 06/06/17 00:03 Dose: 2 mg Mirtazapine (Remeron Tab*) 30 mg PO BEDTIME [facility] Last Admin: 06/07/17 20:21 Dose: 30 mg Multivitamins (Theragran Tab*) 1 tab PO 0900 [facility] Last Admin: 06/08/17 07:49 Dose: 1 tab Nicotine (Nicotine Inhaler*) 10 mg INH Q2H PRN PRN Reason: CRAVING Last Admin: 06/08/17 10:28 Dose: 10 mg Nicotine Polacrilex (Nicotine Gum*) 2 mg PO Q2H PRN PRN Reason: CRAVING Last Admin: 06/08/17 10:28 Dose: 2 mg Omeprazole (Prilosec Cap*) 20 mg PO 0600 FREDDIE Last Admin: 06/08/17 05:59 Dose: 20 mg - Discharge Plan Discharge Plan: Drug/Alcohol Rehab
[2017-06-08] MEDS: busPIRone TAB* 15 MG PO SCH ×2 (12:48→20:38)
--- NOTE | 2017-06-08 13:13 | PN ---
MHU: Group Therapy Note - Service Type Service Type: [id number] Group Psychotherapy - Cognitive Behavioral Group Therapy ( CBT):Patient was attentive and participatory in CBT programming this morning, and remained in good behavioral control. Patient expressed positive insights regarding relevant treatment interventions and goals.
[2017-06-08] MEDS: cloNIDine TAB* DOSING for DAY 6 PO SCH ×2 (14:06→23:10)
[2017-06-08] MEDS: Mirtazapine TAB* 15 MG PO SCH (20:38)
[2017-06-08] MEDS: Carisoprodol TAB* 350 MG Q6H PRN PO (23:27)
[2017-06-08] MEDS: hydrOXYzine HCL TAB* 50 MG PO PRN (23:28)
[2017-06-09] MEDS: Nicotine GUM* 2 MG PO PRN ×7 (06:07→20:06)
[2017-06-09] MEDS: Nicotine Inhaler* 10 MG AMP INH PRN ×7 (06:08→20:06)
[2017-06-09] MEDS: Omeprazole CAP* 20 MG PO SCH (06:08)
[2017-06-09] MEDS: Acetaminophen TAB* 325 MG PO PRN (06:08)
[2017-06-09] MEDS: busPIRone TAB* 15 MG PO SCH ×2 (08:29→20:06)
[2017-06-09] MEDS: Vitamin THERAPEUTIC TAB PO SCH (08:29)
[2017-06-09] MEDS: buPROPion SR TAB.SR* 150 MG PO SCH (08:29)
[2017-06-09] MEDS: cloNIDine TAB* DOSING FOR DAY 7 PO SCH ×2 (08:30→20:07)
[2017-06-09] MEDS: hydrOXYzine HCL TAB* 50 MG PO PRN (12:41)
--- NOTE | 2017-06-09 13:10 | PN ---
MHU: Group Therapy Note - Service Type Service Type: 33912 Group Psychotherapy - Cognitive Behavioral Group Therapy ( CBT):Patient was attentive and participatory in CBT programming this morning, and remained in good behavioral control. Patient expressed positive insights regarding relevant treatment interventions and goals.
--- NOTE | 2017-06-09 15:14 | PN ---
Subjective - Subjective Service Type: 10267 Hosp care 15 min low complexity Subjective: Patient calm and cooperative. No acute complaints. Still agreeable with inpatient rehab placement. Participating in milieu. Objective - Appearance Appearance: Well Developed/Nourished Dysmorphic Features: No Hygiene: Normal Grooming: Well Kept - Behavior Psychomotor Activities: Abnormal-Decreased Exhibits Abnormal Movement: No - Attitude and Relatedness Attitude and Relatedness: Cooperative Eye Contact: Fair - Speech Quality: Unpressured Latencies: Normal Quantity: Appropriate - Mood Patient's Decription of Mood: "Good" - Affect Observed Affect: Good Affect Consistent with: Euthymia - Thought Process Patient's Thought Process: Coherent Thought Content: No Passive Wish, No Suicidal Planning, No Homicidal Ideation, No Paranoid Ideation - Sensorium Experiencing Hallucinations: No, Sensorium is Clear Type of Hallucinations: Visual: No, Auditory: No, Command: No - Level of Consciousness Level of Consciousness: Alert Orientation: Yes Intact, Yes Orientated to Time, Yes Orientated to Place, Yes Orientated to Person - Impulse Control Impulse Control: Tenuous - Insight and Judgement Insight and Judgement: Fair - Group Participation Particating in Group Activities: Yes - Medication Management Medication Management Adherence: Yes Assessment - Assessment Merits Inpatient Hospitalization: Consolidate Improvements, Pending Safe DC Plan Inpatient DSM-IV Dx: Alcohol dependence; Alcohol use disorder, severe. Clinical Impression: 51 y.o. single, white male with a history of alcohol abuse who is voluntarily admitted to the unit secondary to suicidal ideations and alcohol withdrawal symptoms. Plan - Plan Treatment Plan: Name: DIAMOND SEGURA Birthdate: 1965 [id number] We have resumed the patient's medications including mirtazapine, bupropion and hydroxyzine but have been avoiding benzo's due to his abuse history. Restart buspirone 30mg PO BID. We await referral to an inpatient substance abuse program. Continued Medication Management: Continue Outpt Medication Medications: Current Medications Acetaminophen (Tylenol Tab*) 650 mg PO Q4H PRN PRN Reason: for pain; or Temp >101 F Last Admin: 06/09/17 06:08 Dose: 650 mg Al Hydrox/Mg Hydrox/Simethicone (Maalox Plus*) 30 ml PO Q4H PRN PRN Reason: INDIGESTION Last Admin: 06/04/17 17:57 Dose: 30 ml Bupropion HCl (Wellbutrin Sr Tab*) 150 mg PO DAILY [facility] Last Admin: 06/09/17 08:29 Dose: 150 mg Buspirone HCl (Buspar Tab *) 30 mg PO BID [facility] Last Admin: 06/09/17 08:29 Dose: 30 mg Carisoprodol (Soma Tab*) 350 mg PO Q6H PRN PRN Reason: MUSCLE CRAMPS/ACHING Last Admin: 06/08/17 23:27 Dose: 350 mg Clonidine HCl (Catapres Tab*) 0.05 mg PO Q12HR FREDDIE PRN Reason: Protocol Stop: 06/09/17 23:59 Last Admin: 06/09/17 08:30 Dose: 0.05 mg Hydroxyzine HCl (Atarax Tab*) 50 mg PO Q6H PRN PRN Reason: AGITATION/ANXIETY/INSOMNIA Last Admin: 06/09/17 12:41 Dose: 50 mg Ibuprofen (Motrin Tab*) 400 mg PO Q6H PRN PRN Reason: BONE/JOINT PAIN Last Admin: 06/04/17 14:27 Dose: 400 mg Loperamide HCl (Imodium Cap*) 2 mg PO .SEE BELOW PRN PRN Reason: DIARRHEA Last Admin: 06/06/17 00:03 Dose: 2 mg Mirtazapine (Remeron Tab*) 30 mg PO BEDTIME [facility] Last Admin: 06/08/17 20:38 Dose: 30 mg Multivitamins (Theragran Tab*) 1 tab PO 0900 [facility] Last Admin: 06/09/17 08:29 Dose: 1 tab Nicotine (Nicotine Inhaler*) 10 mg INH Q2H PRN PRN Reason: CRAVING Last Admin: 06/09/17 13:14 Dose: 10 mg Nicotine Polacrilex (Nicotine Gum*) 2 mg PO Q2H PRN PRN Reason: CRAVING Last Admin: 06/09/17 13:14 Dose: 2 mg Omeprazole (Prilosec Cap*) 20 mg PO 0600 [facility] Last Admin: 06/09/17 06:08 Dose: 20 mg - Discharge Plan Discharge Plan: Drug/Alcohol Rehab
[2017-06-09] MEDS: Mirtazapine TAB* 15 MG PO SCH (20:06)
[2017-06-10] MEDS: Nicotine Inhaler* 10 MG AMP INH PRN ×2 (06:04→08:07)
[2017-06-10] MEDS: Omeprazole CAP* 20 MG PO SCH (06:04)
[2017-06-10] MEDS: Nicotine GUM* 2 MG PO PRN ×2 (06:04→08:07)
[2017-06-10] MEDS: Vitamin THERAPEUTIC TAB PO SCH (08:06)
[2017-06-10] MEDS: buPROPion SR TAB.SR* 150 MG PO SCH (08:06)
[2017-06-10] MEDS: busPIRone TAB* 15 MG PO SCH (08:06)
[2017-06-10 08:27] VITALS: BP 130/85
--- NOTE | 2017-06-11 05:54 | DS ---
DISCHARGE SUMMARY: DATE OF ADMISSION: 06/03/17 DATE OF DISCHARGE: 06/10/17 DISCHARGE DIAGNOSES: Are as follows: [place] I: Alcohol-induced depressive disorder, alcohol use disorder, and unspecified anxiety disorder by history. [place] II: Deferred. [place] III: History of alcohol hepatitis, gastroesophageal reflux disorder, chronic back pain, arthritis, history of alcohol withdrawal seizures. [place] IV: Severe financial stressors. [place] V: At the time of admission was 43 and at the time of discharge is 58. CONDITION AT THE TIME OF DISCHARGE: Stable. The patient is denying suicidal ideations. He is agreeable to the plan to have him directly transferred to the [facility] in [place], [place] , which is affiliated with [facility]. The patient is tolerating his medications well. He has been safe on all checks and he is agreeable with intensive substance abuse treatment at this time with seemed no evidence of self - harm and violent towards others. MENTAL STATUS EXAMINATION AT THE TIME OF DISCHARGE: The patient is a middle- aged male, appearing slightly older than his stated age. He is wearing a T- shirt and jeans. He makes good eye contact. He is calm and cooperative. Speech has a normal rate, tone, and volume. Mood is euthymic with a full affect. Thought process is linear and goal directed. Thought content is significant for his desire to be transferred to rehab. He denies suicidal or homicidal ideations. He denies auditory or visual hallucinations. Insight and judgment are fair given his willingness to follow up with drug and alcohol treatment. Cognitively, he is awake and alert with what would appear to be an average intellect. DISCHARGE INSTRUCTIONS: To the patient are as follows: A. Medications: The patient is taking nicotine 10 mg inhaler q.2 hours p.r.n. for nicotine cravings. He is also taking Nicorette gum 2 mg every 2 hours as needed for nicotine craving. He is taking Remeron 30 mg p.o. q.h.s., omeprazole 10 mg p.o. q. daily, Wellbutrin SR 150 mg p.o. q. daily, Atarax 25 mg every 4 hours as needed for anxiety, and BuSpar 30 mg p.o. b.i.d. B. Diet is regular. C. Activities as per [facility] protocol. The patient is interested in quitting smoking and he is agreeable to continuing nicotine replacement therapy in the form of an inhaler and gum and these will be continued at his time of transfer. There are no laboratory or diagnostic studies pending at the time of discharge. D. Followup Care. The patient is a direct transfer to the [facility], where he will receive intensive inpatient substance abuse services. They will be responsible for making all appropriate outpatient referrals at his time of discharge from that unit. HOSPITAL COURSE: As follows: Part A: Reason for Admission: The patient is a 51-year-old single white male with a history of alcohol and benzodiazepine abuse as well as anxiety, who arrived at our emergency room seeking voluntary hospitalization for anxiety and suicidal ideations in the context of severe misuse of alcohol. The patient is well known to me secondary to a history of 16 prior psychiatric admissions here at [facility] with the most recent being under my service between 12/25 and 04/13/17. At that time, he was discharged to his home in [place] and claims to have been sober for approximately 3 weeks before resuming drinking again. He indicates that he is extremely depressed and considering killing himself by hanging himself or placing a plastic bag over his head. The patient is telling me that living in [place] does not work for him because too many of his triggers are here in this town. He says that he would like to get into a rehab and move apartments and go to a different city. The patient was somewhat sedated from some oral lorazepam that he had received in the emergency room prior to admission; however, he was calm and cooperative and stating that he would do whatever it took to get into a rehab program followed preferentially by prison housing in the different community. Symptomatically, he was complaining of a depressed mood and anxiety. He denied any history of zara or psychosis in the past. Part B: Psychiatric Treatment Rendered: The patient was admitted to the Adult Behavioral Health Unit and placed on q.15-minute checks for his own safety. He did not show any acute symptoms of withdrawal and therefore was not placed on any type of taper or WAM protocol rather we did give him as needed clonidine for elevated blood pressure or signs or symptoms of withdrawal. He was resumed on his standard outpatient regimen of Remeron, Wellbutrin, Atarax, and BuSpar, which he tolerated well. The patient seemed to vacillate at times going back and forth in terms of wanting to go to inpatient rehab versus wanting to be discharged back to the community. We had a treatment team meeting, in which he was invited to speak with multiple treatment team representatives simultaneously and he was strongly encouraged at that time to move forward with the plan of rehab followed by prison housing. He did become agreeable with this and we were able to successfully refer him to the [facility], which is affiliated with [facility] in [place], [place]. At this time, the patient is successfully detoxified from alcohol. His mood is much more euthymic with a brighter affect and he is future oriented indicating that he still would like to get clean and sober and perhaps move away from [place] where he has multiple triggers that encourage him to drink and relapse. At this time , he is stable for transfer and we certainly wish him the best for a safe, healthy, and sober future. [id number]/[facility] #: [id number] BHUMI
== END 2017-06-10 09:50 | DRG 775 ==
LOC: ED 07:26 → BSU 16:11
PROVIDERS: ADMIT Psychiatry & Neurology Psychiatry; ATTEND Psychiatry & Neurology Psychiatry
PROC: GZHZZZZ Group Psychotherapy (ICD-10-PCS; principal; 2017-06-03)
DX: F10.94 Alcohol use, unspecified with alcohol-induced mood disorder (principal); R45.851 Suicidal ideations; Y90.9 Presence of alcohol in blood, level not specified; F41.9 Anxiety disorder, unspecified; K21.9 Gastro-esophageal reflux disease without esophagitis; G89.29 Other chronic pain; M54.9 Dorsalgia, unspecified; M19.90 Unspecified osteoarthritis, unspecified site; Z88.8 Allergy status to other drugs, medicaments and biological substances
CPT/HCPCS: 36415; 80053; 80307; 80320; 80329; 81003; 81015; 84443; 85025; 90853; 99222; 99231; 99238; A9270-GY; G0480

== ENCOUNTER 2017-08-14 07:26 | Observation (INO) | payer OTHER ==
[2017-08-14] MEDS ORDERED: Ondansetron INJ* 2 MG/ML VIAL IV ONE (07:38)
[2017-08-14] MEDS ORDERED: LORazepam INJ* 2 MG/ML 1 ML VIAL IV PUSH ONE ×2 (07:38→14:25)
[2017-08-14] MEDS ORDERED: NS 0.9% 1000 ML* 1,000 ML IV ONE (07:42)
[2017-08-14 08:01] LABS: Hematocrit 48 % (42-52); Mean Corpuscular HGB Conc 35 g/dl (31-36); Mean Corpuscular Hemoglobin 33 pg (27-31); Mean Corpuscular Volume 94 fL (80-94); Mean Platelet Volume 7 um3 (7.4-10.4); Red Blood Count 5.17 10^6/ul (4.0-5.4); Red Cell Distribution Width 14 % (10.5-15); White Blood Count 4.8 10^3/ul (3.5-10.8)
[2017-08-14 08:17] LABS: ALT 67 U/L (7-52); AST 74 U/L (13-39); Albumin 4.6 g/dL (3.2-5.2); Alkaline Phosphatase 86 U/L (34-104); Anion Gap 16 mmol/L (2-11); BUN/Creatinine Ratio 14.3 (8-20); Blood Urea Nitrogen 14 mg/dL (6-24); CO2 Carbon Dioxide 25 mmol/L (22-32); Calcium 9.3 mg/dL (8.6-10.3); Chloride 95 mmol/L (101-111); EGFR African American 102.9 (>60); Globulin 2.6 g/dL (2-4); Glucose 89 mg/dL (70-100); Potassium 3.9 mmol/L (3.5-5.0); Sodium 136 mmol/L (133-145); Total Protein 7.2 g/dL (6.4-8.9)
[2017-08-14 08:34] LABS: Acetaminophen < 15 mcg/mL; Alcohol < 10 mg/dL (<10); Salicylate < 2.50 mg/dL (<30)
[2017-08-14 08:37] LABS: Urine Bacteria Absent (Absent); Urine Bilirubin Negative (Negative); Urine Glucose Negative (Negative); Urine Nitrite Negative (Negative)
[2017-08-14 08:53] LABS: TSH (Thyroid Stimulating Horm) 1.51 mcIU/mL (0.34-5.60)
[2017-08-14 08:55] LABS: Benzodiazepine Urine Screen None Detected (None Detect)
[2017-08-14] MEDS ORDERED: Thiamine IV* 100 MG/ML 2 ML VIAL IM ONE (17:04)
[2017-08-14] MEDS: NS 0.9% 1000 ML* 1,000 ML IV SCH (18:23)
[2017-08-14] MEDS: LORazepam INJ* 2 MG/ML 1 ML VIAL IM SCH (19:12)
[2017-08-14] MEDS: Acetaminophen TAB* 325 MG PO PRN (19:12)
[2017-08-14] MEDS ORDERED: Mouth Piece, Nicotine* 1 EACH CARTRIDGE ONE (19:55)
[2017-08-14] MEDS: Nicotine GUM* 2 MG PO PRN (20:00)
[2017-08-14] MEDS: Nicotine Inhaler* 10 MG AMP INH PRN (20:00)
[2017-08-14] MEDS: busPIRone TAB* 15 MG PO SCH (21:00)
[2017-08-14] MEDS: Mirtazapine TAB* 15 MG PO SCH (21:00)
[2017-08-14] MEDS: Heparin VIAL(*) 5000 UNITS/ML VIAL (FIVE THOUSAND) SUBCUT SCH (22:49)
--- NOTE | 2017-08-15 00:36 | HP ---
CC: Dr. Aleman. * HOSPITAL MEDICINE HISTORY AND PHYSICAL: DATE OF ADMISSION: 08/14/17. PRIMARY CARE PHYSICIAN: Dr. Aleman. ATTENDING PHYSICIAN: Dr. Thang Mullins * (dictation provided by Geneva Ryan NP ). CHIEF COMPLAINT: Alcohol withdrawal symptoms. HISTORY OF PRESENT ILLNESS: Mr. Lord is a 51-year-old male with multiple admissions to inpatient medical service as well as mental health unit with alcohol withdrawal, depression, and anxiety, who presents again today with concern for alcohol withdrawal symptoms. Mr. Lord states that his last drink was yesterday morning. He typically drinks a bottle of liquor or eight 24- ounce cans of beer per day. He was unable to keep drinking yesterday morning because he was feeling so sick. He tried to smoke some marijuana in hopes that would help with his symptoms, but he continued to feel unwell. He reports having a seizure times one yesterday. Today, he was nauseous and vomiting. He denies any black emesis or stools. He has had no fever. He has had no other complaints. He denies abdominal pain. In the emergency room, Mr. Lord had no leukocytosis. He had mild elevated total bilirubin to 1.8, AST is 74, ALT is 67. His urine showed no evidence of infection. He was positive for cannabinoids. His alcohol screen was less than 10. PAST MEDICAL HISTORY: 1. History of alcohol abuse. 2. Depression. 3. Anxiety. 4. GERD. 5. Alcoholic hepatitis. MEDICATIONS: The patient states he has not been taking his medications for the past 3 weeks. They are: 1. Mirtazapine 30 mg p.o. at bedtime. 2. Nicotine gum as needed. 3. Nicotine inhaler as needed. 4. Omeprazole 20 mg daily. 5. Bupropion SR 150 mg p.o. daily. 6. Buspirone 30 mg p.o. b.i.d. 7. Hydroxyzine 50 mg p.o. every 6 hours p.r.n. ALLERGIES: TOPIRAMATE. FAMILY HISTORY: The patient reports his mother related to colorectal cancer. His father had coronary artery disease. SOCIAL HISTORY: The patient is a continued a [id number]-half a day smoker. He drinks excessively on a daily basis. He smokes marijuana occasionally. He is unable to offer a healthcare proxy. He is currently disabled. REVIEW OF SYSTEMS: A 14-point review of systems was completed with Mr. Lord and all those not mentioned above were negative. PHYSICAL EXAMINATION GENERAL: Mr. Lord is sitting in the bed. He is in no acute distress. VITAL SIGNS: Temperature 98.4, pulse rate 71, respiratory rate 18, O2 saturation 98% on room air, blood pressure 141/78. LUNGS: Clear to auscultation bilaterally with no accessory muscle use and good aeration. HEART: S1 and S2. No murmur, rub, or gallop, and regular. ABDOMEN: Soft and nontender. I am not able to appreciate any hepatosplenomegaly today. EXTREMITIES: No cyanosis or edema. NEURO: He is alert, he is oriented x3. He moves all extremities equally. There is no facial asymmetry or focal weakness. Extraocular movements are intact. SKIN: Intact. DIAGNOSTIC STUDIES/LAB DATA: WBC 4.8, hemoglobin 17.0, hematocrit 48, and platelet count 157. Sodium 136, potassium 3.9, chloride 95, serum bicarbonate 25, BUN 14, creatinine 0.98, glucose 89. TSH 1.51. Urine shows no evidence of infection. Tox screen is positive for cannabinoids. Serum alcohol level is less than 10. EKG shows a sinus rhythm with a heart rate of 70 and no evidence of ischemia. ASSESSMENT AND PLAN: Mr. Lord is a 51-year-old male, well known to the medical service with frequent admissions for alcohol withdrawal as well as depression and anxiety, who presents today to the hospital with concern for alcohol withdrawal with last reported drink yesterday and symptoms of nausea, vomiting, tremors, and seizure. Plans are for inpatient admission to the hospital, as I expect his length of stay to be greater than 2 days for the followin. Alcohol withdrawal: Based on the concern for high seizure risk, plan to observe for alcohol withdrawal symptoms. He will have Ativan available p.r.n. based on the [facility] protocol. He will have multivitamin, thiamine, and folate. He will have IV fluids. 2. Depression and anxiety: Continue medications as were prescribed per his last discharge from Mental Health Unit back in June 2017. 3. Nicotine abuse: Continue nicotine replacement therapies. 4. Gastroesophageal reflux disease: Continue Prilosec. 5. Code status is full code. TIME SPENT: Approximately 60 minutes were spent in the admission of this patient, more than half time spent with the patient at the bedside reviewing the events leading up to this hospitalization, performing the physical examination, and reviewing my plan of care. GENEVA RYAN NP [id number]/[facility] #: [id number] BHUMI
[2017-08-15] MEDS: Acetaminophen TAB* 325 MG PO PRN (02:10)
[2017-08-15] MEDS: LORazepam INJ* 2 MG/ML 1 ML VIAL IM SCH ×6 (02:10→18:06)
[2017-08-15] MEDS: NS 0.9% 1000 ML* 1,000 ML IV SCH (03:38)
[2017-08-15 06:31] LABS: Albumin 3.8 g/dL (3.2-5.2); BUN/Creatinine Ratio 13.4 (8-20); Calcium 8.4 mg/dL (8.6-10.3); EGFR African American 126.4 (>60); EGFR Non-African American 98.3 (>60); Potassium 3.7 mmol/L (3.5-5.0); Total Bilirubin 1.2 mg/dL (0.2-1.0); Total Protein 5.8 g/dL (6.4-8.9)
[2017-08-15] MEDS: Heparin VIAL(*) 5000 UNITS/ML VIAL (FIVE THOUSAND) SUBCUT SCH ×3 (06:39→21:36)
[2017-08-15] MEDS: Omeprazole CAP* 20 MG PO SCH (06:41)
[2017-08-15] MEDS: Folic Acid TAB* 1 MG PO SCH (08:28)
[2017-08-15] MEDS: busPIRone TAB* 15 MG PO SCH ×2 (08:28→20:38)
[2017-08-15] MEDS: buPROPion SR TAB.SR* 150 MG PO SCH (08:28)
[2017-08-15] MEDS: Multivitamins/Minerals TAB PO SCH (08:28)
[2017-08-15] MEDS: Thiamine TAB* 100 MG TAB PO SCH (08:28)
[2017-08-15] MEDS: Nicotine GUM* 2 MG PO PRN ×5 (08:30→19:34)
[2017-08-15] MEDS: Nicotine Inhaler* 10 MG AMP INH PRN ×3 (08:30→16:09)
[2017-08-15] MEDS ORDERED: Influenza VAC *QUAD* 2017-18* 0.5 ML SYRINGE IM ONE (09:00)
--- NOTE | 2017-08-15 12:36 | PN ---
Subjective Date of Service: 08/15/17 Interval History: Mr. Lord reports getting agitated earlier but feeling much better now after a dose of ativan. He denies any tremor, hallucinations, sweating etc. He is tolerating oral intake well. Objective Active Medications: Acetaminophen (Tylenol Tab*) 650 mg PO Q4H PRN Bupropion HCl (Wellbutrin Sr Tab*) 150 mg PO DAILY FREDDIE Buspirone HCl (Buspar Tab *) 30 mg PO BID FREDDIE Folic Acid (Folvite Tab*) 1 mg PO DAILY FREDDIE Heparin Sodium (Porcine) (Heparin Vial(*)) 5,000 units SUBCUT Q8HR FREDDIE Hydroxyzine HCl (Atarax Tab*) 50 mg PO Q6H PRN Sodium Chloride (Ns 0.9% 1000 Ml*) 1,000 mls @ 100 mls/hr IV PER RATE FREDDIE Lorazepam (Ativan Inj*) 0 - 6 mg IM .PER [facility] PROTOCOL FREDDIE Mirtazapine (Remeron Tab*) 30 mg PO BEDTIME FREDDIE Multivitamins/Minerals (Theragran/Minerals Tab*) 1 tab PO DAILY FREDDIE Nicotine (Nicotine Inhaler*) 10 mg INH Q2H PRN Nicotine Polacrilex (Nicotine Gum*) 2 mg PO Q2H PRN Omeprazole (Prilosec Cap*) 20 mg PO 0600 FREDDIE Thiamine HCl (Vitamin B-1 Tab*) 100 mg PO DAILY [facility] Vital Signs Vital Signs: Temp Pulse Resp BP Pulse Ox 97.7 F 66 20 134/83 97 08/15/17 11:52 08/15/17 11:52 08/15/17 11:58 08/15/17 11:52 08/15/17 11:52 Oxygen Devices in Use Now: None Appearance: Male lying in bed in NAD Eyes: No Scleral Icterus Ears/Nose/Mouth/Throat: Mucous Membranes Moist Neck: Trachea Midline Respiratory: Symmetrical Chest Expansion and Respiratory Effort, Clear to Auscultation Cardiovascular: NL Sounds; No Murmurs; No JVD, No Edema Abdominal: NL Sounds; No Tenderness; No Distention Lymphatic: No Cervical Adenopathy Extremities: No Edema Skin: No Rash or Ulcers Neurological: Alert and Oriented x 3, NL Muscle Strength and Tone Nutrition: Taking PO's Result Diagrams: 08/14/17 07:50 08/15/17 05:54 Assess/Plan/Problems-Billing Assessment: Mr. Lord is a 51 yo male with chronic alcoholism and depression who was admitted on 08/14/17 with concern for severe alcohol withdrawal symptoms with reported seizure. - Patient Problems (1) Alcohol withdrawal Comment: - Symptoms well controlled. - Continue WAM protocol, received 7mg of ativan since admission. - Initiate seizure prophylaxis with lorazepam taper. (2) Alcoholic hepatitis Comment: - Chronic, stable. (3) Depression Comment: - Continue wellbutrin, buspar, remeron. (4) GERD (gastroesophageal reflux disease) Comment: - Continue omeprazole. (5) DVT prophylaxis Comment: - SQ Heparin. (6) Full code status Status and Disposition: Inpatient with expected LOS > 2 days. Anticipate discharge to home when medically stable. Patient aware of resources in community for alcohol rehab.
[2017-08-15] MEDS ORDERED: Diazepam TAB(*) 10 MG PO SCH ×2 (13:00→21:00)
[2017-08-15] MEDS: hydrOXYzine HCL TAB* 50 MG PO PRN (16:46)
[2017-08-15] MEDS: Diazepam TAB(*) 10 MG PO SCH (17:29)
[2017-08-15] MEDS ORDERED: LORazepam TAB(*) 1 MG PO ONE (19:19)
[2017-08-15] MEDS: Nicotine PATCH 21 MG/24 HR* PATCH TRANSDERM SCH (19:28)
[2017-08-15] MEDS ORDERED: LORazepam TAB(*) 1 MG PO SCH (20:00)
[2017-08-15] MEDS: Mirtazapine TAB* 15 MG PO SCH (20:38)
[2017-08-16] MEDS: Diazepam TAB(*) 10 MG PO SCH ×2 (02:05→08:12)
[2017-08-16] MEDS: Heparin VIAL(*) 5000 UNITS/ML VIAL (FIVE THOUSAND) SUBCUT SCH (05:30)
[2017-08-16] MEDS: Omeprazole CAP* 20 MG PO SCH (05:30)
[2017-08-16] MEDS: Nicotine PATCH 21 MG/24 HR* PATCH TRANSDERM SCH (08:11)
[2017-08-16] MEDS: buPROPion SR TAB.SR* 150 MG PO SCH (08:13)
[2017-08-16] MEDS: busPIRone TAB* 15 MG PO SCH (08:14)
[2017-08-16] MEDS: Folic Acid TAB* 1 MG PO SCH (08:14)
[2017-08-16] MEDS: Multivitamins/Minerals TAB PO SCH (08:14)
[2017-08-16] MEDS: Thiamine TAB* 100 MG TAB PO SCH (08:14)
[2017-08-16] MEDS: Acetaminophen TAB* 325 MG PO PRN (08:42)
[2017-08-16] MEDS: hydrOXYzine HCL TAB* 50 MG PO PRN (11:26)
[2017-08-16 12:15] VITALS: BP 141/88
--- NOTE | 2017-08-17 00:54 | DS ---
CC: Dr. Aleman * DISCHARGE SUMMARY: DATE OF ADMISSION: 08/14/17 DATE OF DISCHARGE: 08/16/17 PRIMARY CARE PROVIDER: Dr. Aleman. DISCHARGE DIAGNOSES: 1. Alcohol withdrawal with moderate symptoms. 2. Mild alcoholic hepatitis. SECONDARY DIAGNOSES: 1. History of alcoholism. 2. Depression. 3. Anxiety. 4. Gastroesophageal reflux disease. MEDICATIONS AT DISCHARGE: Include [id number] mg tablet. The patient is instructed to take 2 tablets twice a day for 1 day, then 1 tablet twice a day for 1 day, then 1 tablet nightly for 2 days and then stop. I-STOP was checked. The patient did receive Librium prescription on 07/09/17, for 3 days' worth. The remaining medications include: 1. Remeron 30 mg at bedtime. 2. Nicotine gum and inhaler on a p.r.n. basis. 3. Prilosec 20 mg daily. 4. Wellbutrin XR 150 mg daily. 5. BuSpar 30 mg b.i.d. 6. Atarax 50 mg on p.r.n. basis. LABORATORY DATA: Studies performed during the hospital stay included: On 08/15, sodium 138, potassium 3.7, chloride 105, carbon dioxide 26, BUN 11, creatinine 0.82. Total bilirubin of 1.2, AST 78, ALT 64. CBC: White blood cell count 4.8, hemoglobin 17.0, hematocrit 48, platelets 157,000. That was documented on 08/14/17. The patient's alcohol level at admission was below 10. HOSPITALIZATION COURSE: Arthur Lord is a 51-year-old male with a history of alcoholism and depression who presented to the hospital complaining of alcohol withdrawal symptoms. He was admitted and treated with alcohol withdrawal protocol with Valium. He did very well during his hospital stay. His last day of Valium was in the morning on the day of discharge. The patient requested to be discharged on Librium since apparently it helps him with abdominal symptoms. Please also note that at admission, he reported that he had a possible withdrawal seizure the day prior to admission. At discharge, his gait is slightly unsteady and due to that he is going to be discharged with a walker. He is recommended to follow up with his primary care provider in approximately 4 to 7 days. He is also referred to [facility] since he already failed outpatient Alcoholics Anonymous treatment. He likely will be a candidate for inpatient rehabilitation treatment. PHYSICAL EXAMINATION AT THE TIME OF DISCHARGE: Blood pressure 116/78, heart rate of 94 and regular, respiratory rate 16, oxygen saturation 98% on room air, temperature 97.8. General: This is a very pleasant 51-year-old male who is in no acute distress. Alert, awake, and oriented x3. HEENT: Head is atraumatic, normocephalic. Eyes: Pupils are equal, round, reactive to light and accommodation. Oropharynx clear. Mucosa moist. Neck: Supple. No JVD. No bruits bilaterally. Cardiovascular: Regular rate and rhythm. No murmur. Respiratory: Clear to auscultation bilaterally. Abdomen: Soft, nontender. Bowel sounds are present in all 4 quadrants. Extremities: There is no edema. Pulses +2 bilaterally. No clubbing or cyanosis. On neuro evaluation, patient has a wide gait, but occasionally is unsteady. Although he ambulated 50 feet without support, I advised the patient to use the roller walker that was set up for him at discharge to be used initially. His speech is clear at discharge. Cranial nerves II through XII are grossly intact. Motor strength is 5/5 bilaterally. Psychiatric evaluation: Patient is pleasant, cooperative with evaluation with no evidence of anxiety or depression. Please note that this is a very short summary of the patient's hospitalization. Please refer to further medical records for details. TIME SPENT: Approximately 32 minutes was spent on patient's discharge. [id number]/CPS #: [id number] MTDD
--- NOTE | 2017-08-20 12:30 | ED ---
Poncho Byrd SooYoung, scribed for Camacho Inman MD on 08/14/17 at 0738 . Substance Abuse/Use - HPI Summary HPI Summary: A 51 y/o M presents to ED with c/o ETOH withdrawal, his last drink was yesterday. Sx include vomiting, tremors, and L-sided abd pain onset 1 week ago. Denies SI, CP, dysuria, hematuria. He usually drinks 8 24oz cans of beer daily, or whisky. Pt had a sz a few days ago, which he states is a result of the ETOH. No hx epilepsy. This year, he's been to detox 2x in [place]. Lives in [place]. Medication non-compliant. Uses marijuana. - History Of Current Complaint Chief Complaint: EDDetoxRequest Stated Complaint: DETOX Hx Obtained From: Patient Severity Currently: Moderate Associated Signs And Symptoms: Tremulous, Vomiting, Seizure, Other: - L-sided abd pain - Allergies/Home Medications Allergies/Adverse Reactions: Allergies Allergy/AdvReac Type Severity Reaction Status Date / Time Topiramate [From Topamax] AdvReac Muscle Ache Verified 04/17/17 15:32 PMH/Surg Hx/FS Hx/Imm Hx Previously Healthy: No Endocrine/Hematology History: Denies: Hx Blood Transfusions, Hx Thyroid Disease Respiratory History: Reports: Hx Pneumonia, Hx Seasonal Allergies GI History: Reports: Hx Cirrhosis, Hx Gastroesophageal Reflux Disease, Hx Ulcer Musculoskeletal History: Reports: Hx Arthritis, Hx Back Problems, Hx Gout, Other Musculoskeletal History - b/l leg pain Sensory History: Denies: Hx Cataracts, Hx Contacts or Glasses, Hx Deafness, Hx Hearing Aid Opthamlomology History: Denies: Hx Cataracts, Hx Contacts or Glasses Neurological History: Reports: Hx Headaches, Hx Migraine, Hx Seizures Denies: Hx Spinal Cord Injury Psychiatric History: Reports: Hx Anxiety, Hx Depression, Hx Inpatient Treatment , Hx Community Mental Health Tx, Hx Suicide Attempt, Hx Substance Abuse Denies: Hx Eating Disorder, Hx Post Traumatic Stress Disorder, Hx of Violent Episodes Against Others - Surgical History Surgery Procedure, Year, and Place: none - Immunization History Date of Tetanus Vaccine: PT STATES UNSURE Date of Influenza Vaccine: NONE Infectious Disease History: Yes Infectious Disease History: Reports: Hx Hepatitis - Alcoholic hepatitis, Hx of Known/Suspected MRSA Denies: Traveled Outside the [place] in Last 30 Days - Family History Known Family History: Positive: Other - EtOH abuse, bipolar disorder, colon ca, - Social History Occupation: Unemployed Lives: Alone Alcohol Use: Daily Alcohol Amount: 10-20 drinks per day Hx Substance Use: Yes Substance Use Type: Reports: Marijuana Substance Use Comment - Amount & Last Used: 10/01/16 Hx Tobacco Use: Yes Smoking Status (MU): Heavy Every Day Tobacco Smoker Type: Cigarettes Amount Used/How Often: Patient has smoked cigarette within the last 30 days. Length of Time of Smoking/Using Tobacco: 30 years Have You Smoked in the Last Year: Yes Review of Systems Positive: Other - tremors. Negative: Fever, Chills Negative: Erythema Negative: Sore Throat Negative: Chest Pain Negative: Shortness Of Breath, Cough Positive: Abdominal Pain, Nausea. Negative: Vomiting Negative: dysuria, hematuria Negative: Myalgia, Edema Negative: Rash Neurological: Other - pos: sz resolved; neg: dizziness All Other Systems Reviewed And Are Negative: Yes Physical Exam - Summary Physical Exam Summary: Constitutional: Well-developed, Well-nourished, Alert. Tremulous. (-) Distressed Skin: Warm, Diaphoretic HENT: Normocephalic; Atraumatic Eyes: Conjunctiva normal Neck: Musculoskeletal ROM normal neck. (-) JVD, (-) Stridor, (-) Tracheal deviation Cardio: Rhythm regular, rate normal, Heart sounds normal; Intact distal pulses; The pedal pulses are 2+ and symmetric. Radial pulses are 2+ and symmetric. (-) Murmur Pulmonary/Chest wall: Effort normal. (-) Respiratory distress, (-) Wheezes, (-) Rales Abd: Soft, (-) Tenderness, (-) Distension, (-) Guarding, (-) Rebound Musculoskeletal: (-) Edema Lymph: (-) Cervical adenopathy Neuro: Alert, Oriented x3 Psych: Mood and affect Normal Triage Information Reviewed: Yes Vital Signs On Initial Exam: Initial Vitals Temp Pulse Resp BP Pulse Ox 96.4 F 97 22 155/90 99 08/14/17 07:32 08/14/17 07:32 08/14/17 07:32 08/14/17 07:32 08/14/17 07:32 Vital Signs Reviewed: Yes Diagnostics - Vital Signs Vital Signs Temp Pulse Resp BP Pulse Ox 08/14/17 07:32 96.4 F 97 22 155/90 99 - Laboratory Lab Results: Lab Results 08/14/17 08/14/17 08/14/17 Range/Units 07:50 07:50 08:20 WBC 4.8 (3.5-10.8) 10^3/ul RBC 5.17 (4.0-5.4) 10^6/ul Hgb 17.0 (14.0-18.0) g/dl Hct 48 (42-52) % MCV 94 (80-94) fL MCH 33 H (27-31) pg MCHC 35 (31-36) g/dl RDW 14 (10.5-15) % Plt Count 157 (150-450) 10^3/ul MPV 7 L (7.4-10.4) um3 Neut % (Auto) 74.2 (38-83) % Lymph % (Auto) 16.5 L (25-47) % Atlantic % (Auto) 8.6 (1-9) % Eos % (Auto) 0.2 (0-6) % Baso % (Auto) 0.5 (0-2) % Absolute Neuts (auto) 3.6 (1.5-7.7) 10^3/ul Absolute Lymphs (auto) 0.8 L (1.0-4.8) 10^3/ul Absolute Monos (auto) 0.4 (0-0.8) 10^3/ul Absolute Eos (auto) 0 (0-0.6) 10^3/ul Absolute Basos (auto) 0 (0-0.2) 10^3/ul Absolute Nucleated RBC 0.02 10^3/ul Nucleated RBC % 0.4 Sodium 136 (133-145) mmol/L Potassium 3.9 (3.5-5.0) mmol/L Chloride 95 L (101-111) mmol/L Carbon Dioxide 25 (22-32) mmol/L Anion Gap 16 H (2-11) mmol/L BUN 14 (6-24) mg/dL Creatinine 0.98 (0.67-1.17) mg/dL Est GFR ( Amer) 102.9 (>60) Est GFR (Non-Af Amer) 80.0 (>60) BUN/Creatinine Ratio 14.3 (8-20) Glucose 89 (70-100) mg/dL Calcium 9.3 (8.6-10.3) mg/dL Total Bilirubin 1.80 H (0.2-1.0) mg/dL AST 74 H (13-39) U/L ALT 67 H (7-52) U/L Alkaline Phosphatase 86 (34-104) U/L Total Protein 7.2 (6.4-8.9) g/dL Albumin 4.6 (3.2-5.2) g/dL Globulin 2.6 (2-4) g/dL Albumin/Globulin Ratio 1.8 (1-3) TSH 1.51 (0.34-5.60) mcIU/mL Urine Color Urine Appearance Urine pH (5-9) Ur Specific Olds (1.010-1.030) Urine Protein (Negative) Urine Ketones (Negative) Urine Blood (Negative) Urine Nitrate (Negative) Urine Bilirubin (Negative) Urine Urobilinogen (Negative) Ur Leukocyte Esterase (Negative) Urine WBC (Auto) (Absent) Urine RBC (Auto) (Absent) Urine Bacteria (Absent) Hyaline Casts (Absent) Urine Glucose (Negative) Salicylates < 2.50 (<30) mg/dL Urine Opiates Screen None detected (None Detect) Acetaminophen < 15 mcg/mL Ur Barbiturates Screen None detected (None Detect) Ur Phencyclidine Scrn None detected (None Detect) Ur Amphetamines Screen None detected (None Detect) U Benzodiazepines Scrn None detected (None Detect) Urine Cocaine Screen None detected (None Detect) U Cannabinoids Screen Presumptive positive H (None Detect) Serum Alcohol < 10 (<10) mg/dL 08/14/17 Range/Units 08:20 WBC (3.5-10.8) 10^3/ul RBC (4.0-5.4) 10^6/ul Hgb (14.0-18.0) g/dl Hct (42-52) % MCV (80-94) fL MCH (27-31) pg MCHC (31-36) g/dl RDW (10.5-15) % Plt Count (150-450) 10^3/ul MPV (7.4-10.4) um3 Neut % (Auto) (38-83) % Lymph % (Auto) (25-47) % Atlantic % (Auto) (1-9) % Eos % (Auto) (0-6) % Baso % (Auto) (0-2) % Absolute Neuts (auto) (1.5-7.7) 10^3/ul Absolute Lymphs (auto) (1.0-4.8) 10^3/ul Absolute Monos (auto) (0-0.8) 10^3/ul Absolute Eos (auto) (0-0.6) 10^3/ul Absolute Basos (auto) (0-0.2) 10^3/ul Absolute Nucleated RBC 10^3/ul Nucleated RBC % Sodium (133-145) mmol/L Potassium (3.5-5.0) mmol/L Chloride (101-111) mmol/L Carbon Dioxide (22-32) mmol/L Anion Gap (2-11) mmol/L BUN (6-24) mg/dL Creatinine (0.67-1.17) mg/dL Est GFR ( Amer) (>60) Est GFR (Non-Af Amer) (>60) BUN/Creatinine Ratio (8-20) Glucose (70-100) mg/dL Calcium (8.6-10.3) mg/dL Total Bilirubin (0.2-1.0) mg/dL AST (13-39) U/L ALT (7-52) U/L Alkaline Phosphatase (34-104) U/L Total Protein (6.4-8.9) g/dL Albumin (3.2-5.2) g/dL Globulin (2-4) g/dL Albumin/Globulin Ratio (1-3) TSH (0.34-5.60) mcIU/mL Urine Color Yellow Urine Appearance Clear Urine pH 5.0 (5-9) Ur Specific Olds 1.024 (1.010-1.030) Urine Protein 1+(30 mg/dl) H (Negative) Urine Ketones 2+ H (Negative) Urine Blood Negative (Negative) Urine Nitrate Negative (Negative) Urine Bilirubin Negative (Negative) Urine Urobilinogen Negative (Negative) Ur Leukocyte Esterase Negative (Negative) Urine WBC (Auto) Absent (Absent) Urine RBC (Auto) Absent (Absent) Urine Bacteria Absent (Absent) Hyaline Casts Present H (Absent) Urine Glucose Negative (Negative) Salicylates (<30) mg/dL Urine Opiates Screen (None Detect) Acetaminophen mcg/mL Ur Barbiturates Screen (None Detect) Ur Phencyclidine Scrn (None Detect) Ur Amphetamines Screen (None Detect) U Benzodiazepines Scrn (None Detect) Urine Cocaine Screen (None Detect) U Cannabinoids Screen (None Detect) Serum Alcohol (<10) mg/dL Result Diagrams: 08/14/17 07:50 08/15/17 05:54 Lab Statement: Any lab studies that have been ordered have been reviewed, and results considered in the medical decision making process. Re-Evaluation - Re-Evaluation 1 Re-Evaluation Time: 14:25 Change: Improved Comment: Discussing results with pt. Pt remain tremulous, reiterated he had a sz yesterday. Will request hospitalist re-evaluate him. Pt had high BP, HR of 97 upon arrival. Course/Dx - Course Course Of Treatment: Pt is a 51 y/o M presenting with ETOH withdrawal, last drink was yesterday. Sx include vomiting, tremors, and L-sided abd pain onset 1 week ago. Denies SI, CP, dysuria, hematuria. He usually drinks 8 24oz cans of beer daily, or whisky. Pt had a sz a few days ago, which he states is a result of the ETOH. No hx epilepsy. This year, he's been to detox 2x in [place]. Lives in [place]. Medication non-compliant. Uses marijuana. Pt given Ativan, Zofran, fluids in ED. Bloodwork is without significant abnormality. UA results show 1+ protein, 2+ ketones, hyaline casts are present. - Diagnoses Provider Diagnoses: Alcohol-induced mood disorder - Physician Notifications Discussed Care Of Patient With: Thang Mullins - hospitalist Time Discussed With Above Provider: 14:52 Instructed by Provider To: Admit As Inpatient Discharge - Discharge Plan Condition: Improved Disposition: ADMITTED TO [facility] The documentation as recorded by the Poncho lutz SooYoung accurately reflects the service I personally performed and the decisions made by me, Camacho Inman MD.
== END 2017-08-16 13:15 | disposition home or self-care (01) | DRG 775 ==
LOC: ED 07:26 → INTOOBSV 16:59 → MED 16:59
PROVIDERS: ADMIT Internal Medicine; ATTEND Internal Medicine
DX: F10.239 Alcohol dependence with withdrawal, unspecified (principal); K70.10 Alcoholic hepatitis without ascites; F32.9 Major depressive disorder, single episode, unspecified; F41.9 Anxiety disorder, unspecified; K21.9 Gastro-esophageal reflux disease without esophagitis; F17.200 Nicotine dependence, unspecified, uncomplicated; Z23 Encounter for immunization
CPT/HCPCS: 36415; 80053; 80307; 80320; 80329; 81003; 81015; 84443; 85025; 90686; 93005; 96374; 96375; 99283; A9270-GY; G0378; G0480; J1644; J2060; J2405; J3411

== ENCOUNTER 2017-09-02 07:34 | Inpatient (IN) | payer OTHER ==
[2017-09-02] MEDS ORDERED: Thiamine IV 100 MG, Folic Acid IV* 1 MG, Multiple Vitamin IV ADULT* 10 ML in D5NS 0.9% ... IV ONE (07:48)
[2017-09-02] MEDS ORDERED: LORazepam INJ* 2 MG/ML 1 ML VIAL IV PUSH ONE (08:26)
[2017-09-02] MEDS ORDERED: Folic Acid IV* 50 MG/10 ML VIAL ONE (08:45)
[2017-09-02 08:47] LABS: Hematocrit 46 % (42-52); Hemoglobin 15.9 g/dl (14.0-18.0); Mean Corpuscular HGB Conc 35 g/dl (31-36); Mean Corpuscular Hemoglobin 33 pg (27-31); Mean Corpuscular Volume 95 fL (80-94); Mean Platelet Volume 7 um3 (7.4-10.4); Red Blood Count 4.81 10^6/ul (4.0-5.4); Red Cell Distribution Width 14 % (10.5-15); White Blood Count 5.4 10^3/ul (3.5-10.8)
[2017-09-02 08:50] LABS: Urine Bilirubin Negative (Negative); Urine Glucose Negative (Negative); Urine Nitrite Negative (Negative)
[2017-09-02 09:08] LABS: ALT 71 U/L (7-52); AST 52 U/L (13-39); Albumin 4.4 g/dL (3.2-5.2); Alkaline Phosphatase 72 U/L (34-104); Anion Gap 6 mmol/L (2-11); BUN/Creatinine Ratio 10.2 (8-20); Benzodiazepine Urine Screen Presumptive Positive (None Detect); Blood Urea Nitrogen 9 mg/dL (6-24); CO2 Carbon Dioxide 29 mmol/L (22-32); Calcium 9.6 mg/dL (8.6-10.3); Chloride 105 mmol/L (101-111); EGFR African American 116.5 (>60); EGFR Non-African American 90.6 (>60); Globulin 2.4 g/dL (2-4); Glucose 109 mg/dL (70-100); Sodium 140 mmol/L (133-145); Total Protein 6.8 g/dL (6.4-8.9)
[2017-09-02 09:15] LABS: Acetaminophen < 15 mcg/mL; Alcohol < 10 mg/dL (<10); Salicylate < 2.50 mg/dL (<30)
[2017-09-02 09:28] LABS: TSH (Thyroid Stimulating Horm) 1.01 mcIU/mL (0.34-5.60)
[2017-09-02] MEDS ORDERED: Mouth Piece, Nicotine* 1 EACH CARTRIDGE INH ONE (14:00)
[2017-09-02] MEDS: Nicotine Inhaler* 10 MG AMP INH PRN ×2 (15:19→20:34)
[2017-09-02] MEDS ORDERED: Diazepam TAB(*) 10 MG PO ONE (17:00)
--- NOTE | 2017-09-02 18:46 | ED ---
Candie Byrd Thomas, scribed for Rick Gonsales MD on 09/02/17 at 0759 . Complex/Multi-Sys Presentation - HPI Summary HPI Summary: The pt is a 51 y/o M presenting to the ED c/o SI that began a few days ago and worsened today. He has a plan to suffocate himself with a plastic bag. He states he is having alcohol withdrawal. He last consumed alcohol yesterday afternoon. His typical daily alcohol consumption is 1L of vodka. Pt denies any pain. - History Of Current Complaint Chief Complaint: EDPsychosocial Time Seen by Provider: 09/02/17 07:48 Hx Obtained From: Patient Onset/Duration: Lasting Days - onset of SI a few days ago, Still Present, Worse Since - SI worsened today Timing: Intermittent, Lasting: Aggravating Factor(s): Stopped using alcohol yesterday afternoon. Associated Signs And Symptoms: Positive: Other - SI with a plan, ETOH withdrawal ; NEGATIVE: any pain - Allergies/Home Medications Allergies/Adverse Reactions: Allergies Allergy/AdvReac Type Severity Reaction Status Date / Time Topiramate [From Topamax] AdvReac Muscle Ache Verified 04/17/17 15:32 PMH/Surg Hx/FS Hx/Imm Hx Previously Healthy: No Endocrine/Hematology History: Denies: Hx Blood Transfusions, Hx Thyroid Disease Respiratory History: Reports: Hx Pneumonia, Hx Seasonal Allergies GI History: Reports: Hx Cirrhosis, Hx Gastroesophageal Reflux Disease, Hx Ulcer Musculoskeletal History: Reports: Hx Arthritis, Hx Back Problems, Hx Gout, Other Musculoskeletal History - b/l leg pain Sensory History: Denies: Hx Cataracts, Hx Contacts or Glasses, Hx Deafness, Hx Hearing Aid Opthamlomology History: Denies: Hx Cataracts, Hx Contacts or Glasses Neurological History: Reports: Hx Headaches, Hx Migraine, Hx Seizures Denies: Hx Spinal Cord Injury Psychiatric History: Reports: Hx Anxiety, Hx Depression, Hx Inpatient Treatment , Hx Community Mental Health Tx, Hx Suicide Attempt, Hx Substance Abuse Denies: Hx Eating Disorder, Hx Post Traumatic Stress Disorder, Hx of Violent Episodes Against Others - Surgical History Surgery Procedure, Year, and Place: none - Immunization History Date of Tetanus Vaccine: PT STATES UNSURE Date of Influenza Vaccine: NONE Infectious Disease History: No Infectious Disease History: Reports: Hx Hepatitis - Alcoholic hepatitis, Hx of Known/Suspected MRSA Denies: Traveled Outside the in Last 30 Days - Family History Known Family History: Positive: Other - EtOH abuse, bipolar disorder, colon ca - Social History Alcohol Use: Daily Alcohol Amount: 10-20 drinks per day Hx Substance Use: Yes Substance Use Type: Reports: Marijuana Substance Use Comment - Amount & Last Used: 10/01/16 Hx Tobacco Use: Yes Smoking Status (MU): Heavy Every Day Tobacco Smoker Type: Cigarettes Amount Used/How Often: Patient has smoked cigarette within the last 30 days. Length of Time of Smoking/Using Tobacco: 30 years Have You Smoked in the Last Year: Yes Review of Systems Negative: Fever Negative: Other - NEGATIVE: any pain Neurological: Other - ETOH withdrawal Psychological: Other - SI with a plan All Other Systems Reviewed And Are Negative: Yes Physical Exam - Summary Physical Exam Summary: VITAL SIGNS: Reviewed. GENERAL: Patient is a well-developed and nourished male who is lying comfortable in the stretcher. Patient is not in any acute respiratory distress. HEAD AND FACE: No signs of trauma. No ecchymosis, hematomas or skull depressions. No sinus tenderness. EYES: PERRLA, EOMI x 2, No injected conjunctiva, no nystagmus. EARS: Hearing grossly intact. Ear canals and tympanic membranes are within normal limits. MOUTH: Oropharynx within normal limits. NECK: Supple, trachea is midline, no adenopathy, no JVD, no carotid bruit, no c- spine tenderness, neck with full ROM. CHEST: Symmetric, no tenderness at palpation LUNGS: Clear to auscultation bilaterally. No wheezing or crackles. CVS: Regular rate and rhythm, S1 and S2 present, no murmurs or gallops appreciated. ABDOMEN: Soft, non-tender. No signs of distention. No rebound no guarding, and no masses palpated. Bowel sounds are normal. EXTREMITIES: FROM in all major joints, no edema, no cyanosis or clubbing. NEURO: Alert and oriented x 3. No acute neurological deficits. Speech is normal and follows commands. There is positive asterixis. SKIN: Dry and warm PSYCH: He is suicidal with a plan. He is disheveled. Depressed and quiet. No homicidal thoughts or plan. No signs of psychosis or pressure speech. No tangential speech. Triage Information Reviewed: Yes Vital Signs On Initial Exam: Initial Vitals Temp Pulse Resp BP Pulse Ox 97.3 F 100 16 148/70 99 09/02/17 07:37 09/02/17 07:37 09/02/17 07:37 09/02/17 07:37 09/02/17 07:37 Vital Signs Reviewed: Yes Diagnostics - Vital Signs Vital Signs Temp Pulse Resp BP Pulse Ox 09/02/17 07:37 97.3 F 100 16 148/70 99 - Laboratory Lab Results: Lab Results 09/02/17 09/02/17 09/02/17 Range/Units 08:29 08:29 08:29 WBC (3.5-10.8) 10^3/ul RBC (4.0-5.4) 10^6/ul Hgb (14.0-18.0) g/dl Hct (42-52) % MCV (80-94) fL MCH (27-31) pg MCHC (31-36) g/dl RDW (10.5-15) % Plt Count (150-450) 10^3/ul MPV (7.4-10.4) um3 Neut % (Auto) (38-83) % Lymph % (Auto) (25-47) % [place] % (Auto) (1-9) % Eos % (Auto) (0-6) % Baso % (Auto) (0-2) % Absolute Neuts (auto) (1.5-7.7) 10^3/ul Absolute Lymphs (auto) (1.0-4.8) 10^3/ul Absolute Monos (auto) (0-0.8) 10^3/ul Absolute Eos (auto) (0-0.6) 10^3/ul Absolute Basos (auto) (0-0.2) 10^3/ul Absolute Nucleated RBC 10^3/ul Nucleated RBC % Sodium 140 (133-145) mmol/L Potassium 4.0 (3.5-5.0) mmol/L Chloride 105 (101-111) mmol/L Carbon Dioxide 29 (22-32) mmol/L Anion Gap 6 (2-11) mmol/L BUN 9 (6-24) mg/dL Creatinine 0.88 (0.67-1.17) mg/dL Est GFR ( Amer) 116.5 (>60) Est GFR (Non-Af Amer) 90.6 (>60) BUN/Creatinine Ratio 10.2 (8-20) Glucose 109 H (70-100) mg/dL Calcium 9.6 (8.6-10.3) mg/dL Total Bilirubin 1.20 H (0.2-1.0) mg/dL AST 52 H (13-39) U/L ALT 71 H (7-52) U/L Alkaline Phosphatase 72 (34-104) U/L Total Protein 6.8 (6.4-8.9) g/dL Albumin 4.4 (3.2-5.2) g/dL Globulin 2.4 (2-4) g/dL Albumin/Globulin Ratio 1.8 (1-3) TSH 1.01 (0.34-5.60) mcIU/mL Urine Color Yellow Urine Appearance Clear Urine pH 5.0 (5-9) Ur Specific [place] 1.017 (1.010-1.030) Urine Protein Negative (Negative) Urine Ketones Negative (Negative) Urine Blood Negative (Negative) Urine Nitrate Negative (Negative) Urine Bilirubin Negative (Negative) Urine Urobilinogen Negative (Negative) Ur Leukocyte Esterase Negative (Negative) Urine Glucose Negative (Negative) Salicylates < 2.50 (<30) mg/dL Urine Opiates Screen None detected (None Detect) Acetaminophen < 15 mcg/mL Ur Barbiturates Screen None detected (None Detect) Ur Phencyclidine Scrn None detected (None Detect) Ur Amphetamines Screen None detected (None Detect) U Benzodiazepines Scrn Presumptive positive H (None Detect) Urine Cocaine Screen None detected (None Detect) U Cannabinoids Screen Presumptive positive H (None Detect) Serum Alcohol < 10 (<10) mg/dL 09/02/17 Range/Units 08:29 WBC 5.4 (3.5-10.8) 10^3/ul RBC 4.81 (4.0-5.4) 10^6/ul Hgb 15.9 (14.0-18.0) g/dl Hct 46 (42-52) % MCV 95 H (80-94) fL MCH 33 H (27-31) pg MCHC 35 (31-36) g/dl RDW 14 (10.5-15) % Plt Count 201 (150-450) 10^3/ul MPV 7 L (7.4-10.4) um3 Neut % (Auto) 69.3 (38-83) % Lymph % (Auto) 21.4 L (25-47) % [place] % (Auto) 7.8 (1-9) % Eos % (Auto) 0.5 (0-6) % Baso % (Auto) 1.0 (0-2) % Absolute Neuts (auto) 3.7 (1.5-7.7) 10^3/ul Absolute Lymphs (auto) 1.2 (1.0-4.8) 10^3/ul Absolute Monos (auto) 0.4 (0-0.8) 10^3/ul Absolute Eos (auto) 0 (0-0.6) 10^3/ul Absolute Basos (auto) 0.1 (0-0.2) 10^3/ul Absolute Nucleated RBC 0 10^3/ul Nucleated RBC % 0 Sodium (133-145) mmol/L Potassium (3.5-5.0) mmol/L Chloride (101-111) mmol/L Carbon Dioxide (22-32) mmol/L Anion Gap (2-11) mmol/L BUN (6-24) mg/dL Creatinine (0.67-1.17) mg/dL Est GFR ( Amer) (>60) Est GFR (Non-Af Amer) (>60) BUN/Creatinine Ratio (8-20) Glucose (70-100) mg/dL Calcium (8.6-10.3) mg/dL Total Bilirubin (0.2-1.0) mg/dL AST (13-39) U/L ALT (7-52) U/L Alkaline Phosphatase (34-104) U/L Total Protein (6.4-8.9) g/dL Albumin (3.2-5.2) g/dL Globulin (2-4) g/dL Albumin/Globulin Ratio (1-3) TSH (0.34-5.60) mcIU/mL Urine Color Urine Appearance Urine pH (5-9) Ur Specific [place] (1.010-1.030) Urine Protein (Negative) Urine Ketones (Negative) Urine Blood (Negative) Urine Nitrate (Negative) Urine Bilirubin (Negative) Urine Urobilinogen (Negative) Ur Leukocyte Esterase (Negative) Urine Glucose (Negative) Salicylates (<30) mg/dL Urine Opiates Screen (None Detect) Acetaminophen mcg/mL Ur Barbiturates Screen (None Detect) Ur Phencyclidine Scrn (None Detect) Ur Amphetamines Screen (None Detect) U Benzodiazepines Scrn (None Detect) Urine Cocaine Screen (None Detect) U Cannabinoids Screen (None Detect) Serum Alcohol (<10) mg/dL Result Diagrams: 09/02/17 08:29 09/02/17 08:29 Lab Statement: Any lab studies that have been ordered have been reviewed, and results considered in the medical decision making process. Complex Multi-Symp Course/Dx Assessment/Plan: The pt is a 51 y/o M presenting to the ED c/o SI that began a few days ago and worsened today. He has a plan to suffocate himself with a plastic bag. He states he is having alcohol withdrawal. He last consumed alcohol yesterday afternoon. His typical daily alcohol consumption is 1L of vodka. Pt denies any pain. Test results are within normal limits except for increased LFTs. UA is negative for UTI. Urine toxicology is positive for benzodiazepines and cannabinoids. The patient was given IV fluids, a banana bag because he is a chronic alcoholic, and Ativan. The vital signs are stable; therefore, the patient is medically cleared. Mental health evaluation saw the patient. Dr. Terry did the assessment and plan, and he will be admitting the patient to his services. - Diagnoses Provider Diagnoses: Suicidal ideation, Mood disorder, Alcoholism Discharge - Discharge Plan Condition: Fair Disposition: ADMITTED TO [facility] The documentation as recorded by the Candie lutz Thomas accurately reflects the service I personally performed and the decisions made by , Rick Gonsales MD.
[2017-09-02] MEDS: cloNIDine TAB* 0.1 MG PO SCH (20:33)
[2017-09-02] MEDS: busPIRone TAB* 30 MG PO SCH (20:33)
[2017-09-02] MEDS ORDERED: Mirtazapine TAB* 15 MG PO SCH (21:00)
[2017-09-03] MEDS: hydrOXYzine HCL TAB* 25 MG PO PRN ×2 (05:22→12:11)
[2017-09-03] MEDS ORDERED: Omeprazole CAP* 20 MG PO SCH (06:00)
[2017-09-03 08:15] VITALS: BP 165/96
[2017-09-03] MEDS: Nicotine Inhaler* 10 MG AMP INH PRN ×3 (08:18→13:09)
[2017-09-03] MEDS: cloNIDine TAB* 0.1 MG PO SCH ×2 (08:19→13:09)
[2017-09-03] MEDS: busPIRone TAB* 30 MG PO SCH (08:19)
[2017-09-03] MEDS ORDERED: buPROPion SR TAB.SR* 150 MG PO SCH (09:00)
[2017-09-03] MEDS ORDERED: Acetaminophen TAB* 325 MG PO PRN (11:15)
--- NOTE | 2017-09-03 14:34 | HP ---
HISTORY AND PHYSICAL: DATE OF ADMISSION: 09/02/17 JUSTIFICATION FOR ADMISSION: The patient is in need of 24-hour supervision and support secondary to suicidal ideations. CHIEF COMPLAINT: "I just need to be detoxed, that's all." HISTORY OF PRESENT ILLNESS: The patient is a 51-year-old single white male with a history of alcoho l and benzodiazepine abuse as well as anxiety, who arrived in our emergency room seeking voluntary a dmission to address his alcoholism. He states that he is drinking up to 20 beers a day, smoking mar ijuana and abused Klonopin 3 days ago to address his withdrawal symptoms. The patient was positive for marijuana and benzodiazepines. He was recently admitted to the 4th floor for detox here at [facility]. The patient reported experiencing auditory hallucinations 2 days ago, was not taking his medicatio ns, was sleeping up to 15 hours a day and feeling suicidal with a plan to suffocate himself by placi ng a plastic bag over his head. Apparently, this is the th admission for this patient at [facility]. He is seeking admission to address his withdrawal symptoms and get back on his medications and then to be discharged into rehab stepping down into a [facility]. The patient feels that he needs to res gwendolyn in another community, as [place] is a trigger for him. When I met with him, he was somewhat sedat ed from resumption of his medications. He was cooperative stating that his desire is to follow up [facility] outpatient services. He is denying depressed mood or anxiety and he denies any past history of m bela or psychosis. PAST PSYCHIATRIC HISTORY: The patient is well known to me from several prior [facility] admissions. In [facility], I last had him on my service in late May 2017, at which time, he was discharged to the [facility] in [place], [place]. It is clear that shortly after discharge from that [facility], he quickly continued drinking again. He has [facility] and he has been seeing Alberta Calloway at the [facility], although he has missed several appointments and has not seen her in the last 2 months. He denies any formal fl story of suicide attempts in the past. SUBSTANCE ABUSE HISTORY: The patient began binging on 20 to 25 beers per day and indicates that he occasionally smokes cannabis. He has taken naltrexone in the past for alcohol dependence. He denie s any history of opioid abuse. The patient states that he has taken hallucinogens approximately 30 times in his life. Serum alcohol level in our emergency room was negative, although his urine drug screen was positive for benzodiazepines and cannabis. PAST MEDICAL HISTORY: Significant for alcoholic hepatitis, gastroesophageal reflux disease, chronic back pain, chronic arthritis, alcohol withdrawal seizures. MEDICATIONS: Current home medications include: 1. Remeron 30 mg p.o. q.h.s. 2. Omeprazole 10 mg daily. 3. Wellbutrin SR 150 mg daily. 4. Atarax 25 mg up to 4 times daily for anxiety. ALLERGIES: He is allergic to TOPIRAMATE. SOCIAL HISTORY: The patient lives in a rooming house. He has 2 brothers and 1 sister. His apartme nt is ported by a section 8. He indicates that he has 1 brother who is doing well in [place] and ano ther brother here in the [facility], who has been clean and sober for 13 years. He also has a sist er in [place], who abuses heroin. The patient is single, never , no children. 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 REVIEW OF SYSTEMS: The patient complains of tremulousness and anxiety from alcohol withdrawal. Oth er than that, he denies headache or double vision. Denies sore throat, cough, chest pain, or diffic ulty breathing. He is endorsing 5/10 abdominal pain, but denies nausea, vomiting, diarrhea or const ipation. He denies difficulty ambulating and large lymph nodes, fevers, rashes, or changes in weigh t. PHYSICAL EXAMINATION VITAL SIGNS: Blood pressure 165/96, heart rate 87, respiratory rate 16, temperature 98.7 degrees Fa hrenheit, oxygen saturations are 100% on room air. HEENT: Head is normocephalic, atraumatic. NECK: Supple. CHEST: Clear to auscultation bilaterally. CARDIAC: Exam reveals normal heart sounds. ABDOMEN: Soft and nontender. MUSCULOSKELETAL: Exam reveals no sign of edema. NEUROLOGIC: He is grossly intact with mild tremor. SKIN: Warm and dry. MENTAL STATUS EXAM: The patient is a middle-aged male, appearing slightly older than his stated ag e. He is wearing green patient's scrubs, lying flat in bed, although his head is propped up on pill ows. He makes good eye contact. He is calm and cooperative. Speech has a normal rate, tone, and v olume. Mood is anxious and depressed with a corresponding affect. Thought process is linear and go al directed. Thought content is significant for his desire to leave the hospital and return to [facility]. He denies suicidal or homicidal ideations. He denies auditory or visual hallucinations. Ins ight and judgment appeared to be poor given his insistence on leaving the hospital against medical a dvice. Cognitively, he is awake and alert with what would appear to be an average intellect. LABORATORY DATA: Laboratory evaluation does show evidence of elevated liver transaminases, AST is 5 2, ALT is 71, total bilirubin elevated at 1.20, glucose elevated at 109. Other than that, the CMP i s within normal limits. CBC is within normal limits. Urinalysis within normal limits. Urine drug screen positive for both benzodiazepines and cannabinoids. DIAGNOSES: Are as follows: [place] I: Alcohol-induced mood disorder, alcohol use disorder, unspecified anxiety disorder by arsen tierney. Greer II: Deferred. Greer III: History of alcoholic hepatitis, gastroesophageal reflux disorder, chronic back pain, arthritis, history of alcohol withdrawal seizures. Greer IV: Severe financial st ressors. Greer V: At this time is 50. IMPRESSION: The patient is a 51-year-old single white male with a history of alcoholism, who arrive s at our emergency room complaining of anxiety and suicidal thoughts with plans to put a bag over hi s head. When he arrived, he was requesting detoxification and admission to a substance abuse rehabi litation facility. However, at this time, he has signed his 72 hour voluntary discharge request stat ing that his intention is to return to drinking in the community. He is denying suicidal or homicid al thoughts. PLAN: The patient is admitted to the adult behavioral health unit where he was placed on q.15 minut e checks for his own safety. We placed him on an alcohol withdrawal protocol utilizing clonidine an d I have resumed his outpatient medications including Remeron, omeprazole, bupropion and Atarax. At this time, I do not feel that the hospital has any legal justification to keep him any further give n the fact that he is denying thoughts of self-harm. We will make appointments at [facility] as well as the alcohol and drug counseling director, but it is up to the patient to follow stanley hanna with these treatment recommendations. [id number]/[facility] #: [id number]
--- NOTE | 2017-09-04 02:14 | DS ---
DISCHARGE SUMMARY: DATE OF ADMISSION: 09/02/17 DATE OF DISCHARGE: 09/03/17 DISCHARGE DIAGNOSES: As follows: [place] I: Alcohol-induced mood disorder, alcohol use disorder, and unspecified anxiety disorder by history. [place] II: Deferred. [place] III: History of alcoholic hepatitis, gastroesophageal reflux disorder, chronic back pain, arthritis, history of alcohol withdrawal seizures. [place] IV: Severe financial stressors. [place] V: At the time of admission was 48 and at the time of discharge is 53. CONDITION AT THE TIME OF DISCHARGE: Improved. The patient is no longer endorsing suicidal ideations. He has been safe on all checks. We note that he has been hemodynamically stable with blood pressures within the normal limits. The patient is on a voluntary legal status and he is signing out against medical advice. He has signed a 72-hour release stating that he would prefer to go to a different facility given our reluctance to treat him with benzodiazepines for his withdrawal. We explained to Arthur that his vitals and in particular his heart rate did not justify the use of benzodiazepines. The patient accepts this and he states that he is safe to leave, although he is telling me that he will likely go to a different facility that will give him benzodiazepines. Our facility knows Arthur quite well given the fact that this is his 17th admission with us. In my experience, we have never needed benzodiazepines to safely detoxify him and we know that he has abused benzodiazepines in the past. In fact, he admitted to abusing clonazepam at the time of his admission for this current hospitalization. At this time, we do not feel that we have the legal justification to keep the patient any further against his will and he is being discharged to outpatient treatment. MENTAL STATUS EXAMINATION: At the time of discharge, the patient is a middle- aged male, appearing slightly older than his stated age. He is wearing green patient scrubs, making good eye contact. He is calm and cooperative. His speech has normal rate, tone, and volume. I do note mild tremor but this is not grossly abnormal. Mood is anxious with a corresponding anxious affect. Thought process is linear and goal directed. Thought content is significant for his desire to leave the hospital because he cannot get benzodiazepines. He denies suicidal or homicidal ideations. He denies auditory or visual hallucinations. Insight and judgement appears to be poor given his insistence on receiving benzos despite his addictive history. Cognitively, he is awake and alert with what would appear to be an average intellect. DISCHARGE INSTRUCTIONS: To the patient are as follows: A. Medications: He is taking Remeron 30 mg p.o. q.h.s., omeprazole 10 mg p.o. daily, Wellbutrin SR 150 mg p.o. daily, Atarax 25 mg up to 4 times a day for anxiety and clonidine 0.1 mg p.o. t.i.d. B. Diet is regular. C. Activities: As tolerated. The patient is declining the use of continued nicotine replacement therapy indicating his intention to continue smoking for the time being. There are no laboratory or diagnostic studies pending at the time of discharge. D. Followup care: The patient will follow up within a week at the [facility] where he sees psychiatric nurse practitioner, Alberta Calloway. He will also follow up with the [facility] [place] [facility]. HOSPITAL COURSE: Part A: The patient is a 51-year-old single white male with a history of alcohol and benzodiazepine abuse as well as anxiety who arrived at our emergency room seeking voluntary hospitalization for anxiety and suicidal ideations in the context of severe misuse of alcohol. The patient states that he is drinking up to 20 beers per day, smoking marijuana and recently abusing Klonopin. He was positive for both marijuana and benzodiazepines at the time of admission. Recently, he had been admitted to the fourth floor for detox at [facility]. He reported experiencing auditory hallucinations 2 days ago. He had not been taking his medications. Was sleeping up to 15 hours a day and feeling suicidal with a plan to suffocate himself by placing a plastic bag over his head. It is notable that this is his 17th admission at [facility] with the most recent being in early June of this year under this clinician's service. The patient initially was requesting transfer to a rehab followed by step-down to a jail house. He stated that his triggers involved living in [place] where he could not prevent himself from drinking. Part B: Psychiatric treatment rendered: The patient was admitted to the adult behavioral health unit where he was placed on q.15 minute checks for his own safety. We placed him on a clonidine taper protocol for alcohol detox. I want to note that I have had this patient several times in the past and he has never required benzodiazepines for safe detoxification. In spite of this, he is demanding treatment with benzodiazepine. I reminded him of his addiction to benzodiazepines including his recent abuse of the substance clonazepam, which he shrugged off stating that he needed these medications at this time. The patient and this clinician could not come to an agreement around this topic and he signed voluntary discharge paper work, which is legally obligating us to discharge him. His suicidal ideations immediately resolved in the emergency room and he was safe on all checks. At this time, he continues to deny suicidality stating that he would go in to the community and seek second opinion with regard to detox protocols. This is the patient's choice and we certainly wish him the best of luck for future that is safe, healthy, and sober. [id number]/[facility] #: [id number] [id number]
== END 2017-09-03 13:14 | disposition home or self-care (01) | DRG 775 ==
LOC: ED 07:34 → BSU 14:17
PROVIDERS: ADMIT Psychiatry & Neurology Psychiatry; ATTEND Psychiatry & Neurology Psychiatry
DX: F10.24 Alcohol dependence with alcohol-induced mood disorder (principal); R45.851 Suicidal ideations; K70.10 Alcoholic hepatitis without ascites; F41.9 Anxiety disorder, unspecified; K21.9 Gastro-esophageal reflux disease without esophagitis; M54.9 Dorsalgia, unspecified; M19.90 Unspecified osteoarthritis, unspecified site; Z79.899 Other long term (current) drug therapy; Z88.8 Allergy status to other drugs, medicaments and biological substances
CPT/HCPCS: 36415; 80053; 80307; 80320; 80329; 81003; 84443; 85025; 99238; A9270-GY; G0480; J2060; J3411

== ENCOUNTER 2017-10-18 07:25 | Emergency (ER) | payer OTHER ==
[2017-10-18] MEDS ORDERED: NS 0.9% 1000 ML* 1,000 ML IV ONE (07:48)
[2017-10-18 08:11] LABS: Hematocrit 45 % (42-52); Hemoglobin 15.8 g/dl (14.0-18.0); Mean Corpuscular HGB Conc 36 g/dl (31-36); Mean Corpuscular Hemoglobin 33 pg (27-31); Mean Corpuscular Volume 92 fL (80-94); Mean Platelet Volume 7 um3 (7.4-10.4); Red Blood Count 4.83 10^6/ul (4.0-5.4); Red Cell Distribution Width 13 % (10.5-15); White Blood Count 5.2 10^3/ul (3.5-10.8)
[2017-10-18 08:26] LABS: ALT 30 U/L (7-52); AST 34 U/L (13-39); Albumin 4.4 g/dL (3.2-5.2); Alkaline Phosphatase 77 U/L (34-104); Anion Gap 10 mmol/L (2-11); Blood Urea Nitrogen 12 mg/dL (6-24); CO2 Carbon Dioxide 27 mmol/L (22-32); Calcium 9.7 mg/dL (8.6-10.3); Chloride 102 mmol/L (101-111); EGFR African American 119.2 (>60); EGFR Non-African American 92.7 (>60); Globulin 2.3 g/dL (2-4); Glucose 111 mg/dL (70-100); Magnesium 1.9 mg/dL (1.9-2.7); Potassium 3.7 mmol/L (3.5-5.0); Sodium 139 mmol/L (133-145); Total Protein 6.7 g/dL (6.4-8.9)
[2017-10-18] MEDS ORDERED: Ondansetron INJ* 2 MG/ML VIAL IV ONE (08:30)
[2017-10-18 08:50] LABS: Acetaminophen < 15 mcg/mL; Alcohol < 10 mg/dL (<10); Salicylate < 2.50 mg/dL (<30)
[2017-10-18 09:04] LABS: TSH (Thyroid Stimulating Horm) 1.28 mcIU/mL (0.34-5.60)
[2017-10-18 10:52] LABS: Urine Bilirubin Negative (Negative); Urine Glucose Negative (Negative); Urine Nitrite Negative (Negative)
[2017-10-18 11:35] LABS: Benzodiazepine Urine Screen None Detected (None Detect)
--- NOTE | 2017-10-18 14:02 | ED ---
Austin Byrd Angela, scribed for Ghulam Paredes MD on 10/18/17 at 0954 . Substance Abuse/Use - HPI Summary HPI Summary: This pt is a 52 y/o male presenting to [facility] for EtOH withdrawal. Pt reports he was "very sick" last night with nausea, tremors, headache, abd pain, body aches. He notes his last drink was yesterday around noon time. Pt states he normally drinks 15-20 drinks per day. He usually drinks high alcohol content beer and whiskey. Pt reports he stopped drinking for 3 weeks but started drinking again a couple of weeks ago. Pt notes having mild rhinorrhea. He denies fever, sore throat. Pt has been to [facility] before. Pt now notes relief of nausea from anti-emetics in the ED. He additionally states having a mental health illness for which he was given medications but stopped taking them. Pt reports being depressed. He denies SI or HI. - History Of Current Complaint Chief Complaint: EDGeneral Stated Complaint: ALCOHOL WITHDRAWLS Time Seen by Provider: 10/18/17 09:26 Hx Obtained From: Patient Onset/Duration of Drug/ETOH Abuse: Days Ingestion History: Type/Name Of Drug - Alcohol Overdose Characteristics: Oral Character: Depressed, Other - tremors Associated Signs And Symptoms: Nausea, Other: - POS: headache, tremors, depression. NEG: SI or HI, fever, sore throat. - Allergies/Home Medications Allergies/Adverse Reactions: Allergies Allergy/AdvReac Type Severity Reaction Status Date / Time Topiramate [From Topamax] AdvReac Muscle Ache Verified 04/17/17 15:32 PMH/Surg Hx/FS Hx/Imm Hx Endocrine/Hematology History: Denies: Hx Blood Transfusions, Hx Thyroid Disease Respiratory History: Reports: Hx Pneumonia, Hx Seasonal Allergies GI History: Reports: Hx Cirrhosis, Hx Gastroesophageal Reflux Disease, Hx Ulcer Musculoskeletal History: Reports: Hx Arthritis, Hx Back Problems, Hx Gout, Other Musculoskeletal History - b/l leg pain Sensory History: Denies: Hx Cataracts, Hx Contacts or Glasses, Hx Deafness, Hx Hearing Aid Opthamlomology History: Denies: Hx Cataracts, Hx Contacts or Glasses Neurological History: Reports: Hx Headaches, Hx Migraine, Hx Seizures Denies: Hx Spinal Cord Injury Psychiatric History: Reports: Hx Anxiety, Hx Depression, Hx Inpatient Treatment , Hx Community Mental Health Tx, Hx Suicide Attempt, Hx Substance Abuse Denies: Hx Eating Disorder, Hx Post Traumatic Stress Disorder, Hx of Violent Episodes Against Others - Surgical History Surgery Procedure, Year, and Place: none - Immunization History Date of Tetanus Vaccine: PT STATES UNSURE Date of Influenza Vaccine: NONE Infectious Disease History: No Infectious Disease History: Reports: Hx Hepatitis - Alcoholic hepatitis, Hx of Known/Suspected MRSA Denies: Hx Clostridium Difficile, Traveled Outside the [place] in Last 30 Days - Family History Known Family History: Positive: Other - EtOH abuse, bipolar disorder, colon ca - Social History Alcohol Use: Daily Alcohol Amount: 10-20 drinks per day Hx Substance Use: Yes Substance Use Type: Reports: Marijuana Substance Use Comment - Amount & Last Used: 10/01/16 Hx Tobacco Use: Yes Smoking Status (MU): Heavy Every Day Tobacco Smoker Type: Cigarettes Amount Used/How Often: Patient has smoked cigarette within the last 30 days. Length of Time of Smoking/Using Tobacco: 30 years Have You Smoked in the Last Year: Yes Review of Systems Constitutional: Other - tremors last night Negative: Fever, Chills Positive: Nasal Discharge - mild. Negative: Sore Throat Positive: Abdominal Pain, Nausea Musculoskeletal: Other - body aches Positive: Headache Positive: Depressed. Negative: Other - SI or HI All Other Systems Reviewed And Are Negative: Yes Physical Exam - Summary Physical Exam Summary: General: well-appearing, no pain distress Skin: warm, color reflects adequate perfusion, dry Head: normal Eyes: EOMI, LAYNE ENT: normal Neck: supple, nontender Respiratory: CTA, breath sounds present Cardiovascular: RRR Abdomen: soft, nontender Bowel: present Musculoskeletal: normal, strength/ROM intact Neurological: normal, sensory/motor intact, A&O x3 Psychological: affect/mood appropriate Triage Information Reviewed: Yes Vital Signs On Initial Exam: Initial Vitals Temp Pulse Resp BP Pulse Ox 97.6 F 90 18 123/86 100 10/18/17 07:28 10/18/17 07:28 10/18/17 07:28 10/18/17 07:28 10/18/17 07:28 Vital Signs Reviewed: Yes - Alger Coma Scale Coma Scale Total: 15 Diagnostics - Vital Signs Vital Signs Temp Pulse Resp BP Pulse Ox 10/18/17 09:00 70 128/70 96 10/18/17 08:30 72 128/75 96 10/18/17 08:00 72 136/75 95 10/18/17 07:45 140/82 10/18/17 07:28 97.6 F 90 18 123/86 100 - Laboratory Lab Results: Lab Results 10/18/17 10/18/17 10/18/17 Range/Units 08:00 08:00 08:00 WBC 5.2 (3.5-10.8) 10^3/ul RBC 4.83 (4.0-5.4) 10^6/ul Hgb 15.8 (14.0-18.0) g/dl Hct 45 (42-52) % MCV 92 (80-94) fL MCH 33 H (27-31) pg MCHC 36 (31-36) g/dl RDW 13 (10.5-15) % Plt Count 183 (150-450) 10^3/ul MPV 7 L (7.4-10.4) um3 Neut % (Auto) 73.6 (38-83) % Lymph % (Auto) 18.3 L (25-47) % K[place]haw % (Auto) 7.1 (1-9) % Eos % (Auto) 0.2 (0-6) % Baso % (Auto) 0.8 (0-2) % Absolute Neuts (auto) 3.8 (1.5-7.7) 10^3/ul Absolute Lymphs (auto) 1.0 (1.0-4.8) 10^3/ul Absolute Monos (auto) 0.4 (0-0.8) 10^3/ul Absolute Eos (auto) 0 (0-0.6) 10^3/ul Absolute Basos (auto) 0 (0-0.2) 10^3/ul Absolute Nucleated RBC 0 10^3/ul Nucleated RBC % 0.1 INR (Anticoag Therapy) 0.99 (0.77-1.02) APTT 26.2 (26.0-36.3) seconds Sodium 139 (133-145) mmol/L Potassium 3.7 (3.5-5.0) mmol/L Chloride 102 (101-111) mmol/L Carbon Dioxide 27 (22-32) mmol/L Anion Gap 10 (2-11) mmol/L BUN 12 (6-24) mg/dL Creatinine 0.86 (0.67-1.17) mg/dL Est GFR ( Amer) 119.2 (>60) Est GFR (Non-Af Amer) 92.7 (>60) BUN/Creatinine Ratio 14.0 (8-20) Glucose 111 H (70-100) mg/dL Calcium 9.7 (8.6-10.3) mg/dL Magnesium 1.9 (1.9-2.7) mg/dL Total Bilirubin 1.70 H (0.2-1.0) mg/dL AST 34 (13-39) U/L ALT 30 (7-52) U/L Alkaline Phosphatase 77 (34-104) U/L Total Protein 6.7 (6.4-8.9) g/dL Albumin 4.4 (3.2-5.2) g/dL Globulin 2.3 (2-4) g/dL Albumin/Globulin Ratio 1.9 (1-3) TSH 1.28 (0.34-5.60) mcIU/mL Salicylates < 2.50 (<30) mg/dL Acetaminophen < 15 mcg/mL Serum Alcohol < 10 (<10) mg/dL Result Diagrams: 10/18/17 08:00 10/18/17 08:00 Lab Statement: Any lab studies that have been ordered have been reviewed, and results considered in the medical decision making process. Course/Dx - Course Course Of Treatment: Medications reviewed. Allergies noted. Pt is medically cleared at 10:02. Pt is waiting for [facility]. discharge home after [facility] - Diagnoses Provider Diagnoses: Alcohol withdrawal, Mental health problem Discharge - Discharge Plan Condition: Stable Disposition: HOME Referrals: Rick Aleman MD [Primary Care Provider] - The documentation as recorded by the Austin lutz Angela accurately reflects the service I personally performed and the decisions made by me, Ghulam Paredes MD.
[2017-10-18 14:15] VITALS: BP 155/86
== END 2017-10-18 20:12 | disposition home or self-care (01) ==
LOC: ED 07:25
DX: F10.239 Alcohol dependence with withdrawal, unspecified (principal); F99 Mental disorder, not otherwise specified; K21.9 Gastro-esophageal reflux disease without esophagitis; K74.60 Unspecified cirrhosis of liver
CPT/HCPCS: 36415; 80053; 80307; 80320; 80329; 81003; 83735; 84443; 85025; 85610; 85730; 96360; 96374; 99284; G0480; J2405

== ENCOUNTER 2017-12-14 07:54 | Inpatient (IN) | payer OTHER ==
[2017-12-14] MEDS ORDERED: NS 0.9% 1000 ML* 1,000 ML IV ONE (07:56)
[2017-12-14] MEDS ORDERED: Ondansetron INJ* 2 MG/ML VIAL ONE (08:06)
[2017-12-14] MEDS ORDERED: Thiamine IV 100 MG, Folic Acid IV* 1 MG, Multiple Vitamin IV ADULT* 10 ML in NS 0.9% 10... IV ONE (08:08)
[2017-12-14] MEDS ORDERED: Ondansetron INJ* 2 MG/ML VIAL IV ONE (08:15)
[2017-12-14 08:36] LABS: INR 0.95 (0.77-1.02)
[2017-12-14 08:38] LABS: EGFR Non-African American 84.7 (>60)
--- NOTE | 2017-12-14 08:46 | RAD ---
INDICATION: Seizure COMPARISON: Most recent comparison chest x-ray May 18, 2016 TECHNIQUE: Single AP portable view of the chest was obtained. FINDINGS: Image quality is compromised due to the relative inferiority of a portable chest x-ray. The heart and mediastinum exhibit normal size and contour. The lungs are grossly clear. There is no evidence of a large pleural effusion. Visualized bones are normal for the patient's age. IMPRESSION: No radiographic evidence for acute cardiopulmonary abnormality on this portable chest x-ray.
[2017-12-14 08:47] LABS: ABS Basophils 0 10^3/ul (0-0.2); ABS Eosinophils 0 10^3/ul (0-0.6); ABS Lymphocytes 1.1 10^3/ul (1.0-4.8); ABS Monocytes 0.3 10^3/ul (0-0.8); ABS Nucleated RBC 0 10^3/ul; Eosinophil % 0.1 % (0-6); Hematocrit 51 % (42-52); Lymphocyte % 16.5 % (25-47); Mean Corpuscular HGB Conc 36 g/dl (31-36); Mean Corpuscular Hemoglobin 33 pg (27-31); Mean Corpuscular Volume 92 fL (80-94); Mean Platelet Volume 7 um3 (7.4-10.4); Nucleated Red Blood Cells % 0.1; Platelet Count 188 10^3/ul (150-450); Red Blood Count 5.51 10^6/ul (4.0-5.4); Red Cell Distribution Width 13 % (10.5-15); White Blood Count 6.4 10^3/ul (3.5-10.8)
[2017-12-14] MEDS ORDERED: LORazepam INJ* 2 MG/ML 1 ML VIAL IV PUSH ONE (11:07)
[2017-12-14] MEDS ORDERED: Ondansetron INJ* 2 MG/ML VIAL IV PRN (12:21)
[2017-12-14] MEDS ORDERED: Thiamine IV 100 MG, Folic Acid IV* 1 MG, Multiple Vitamin IV ADULT* 10 ML in D5NS 0.9% ... IV ONE (12:21)
[2017-12-14] MEDS ORDERED: hydrOXYzine HCL TAB* 25 MG PO PRN (12:26)
[2017-12-14] MEDS ORDERED: Pantoprazole IV* 40 MG IV SCH (13:00)
[2017-12-14] MEDS ORDERED: LORazepam INJ* 2 MG/ML 1 ML VIAL IV PUSH SCH (13:00)
[2017-12-14] MEDS: Acetaminophen TAB* 325 MG PO PRN (14:47)
[2017-12-14] MEDS: Gabapentin CAP(*) 300 MG PO SCH ×2 (14:47→22:45)
[2017-12-14] MEDS: Nicotine PATCH 21 MG/24 HR* PATCH TRANSDERM SCH (14:48)
[2017-12-14] MEDS: LORazepam INJ* 2 MG/ML 1 ML VIAL IV SCH ×2 (14:48→22:46)
[2017-12-14] MEDS: Heparin VIAL(*) 5000 UNITS/ML VIAL (FIVE THOUSAND) SUBCUT SCH ×2 (14:48→22:47)
[2017-12-14] MEDS: NS 0.9% 1000 ML* 1,000 ML IV SCH (15:48)
--- NOTE | 2017-12-14 18:31 | HP ---
CC: Dr. Aleman * HISTORY AND PHYSICAL: DATE OF ADMISSION: 12/14/17 PRIMARY CARE PROVIDER: Dr. Aleman. ATTENDING PROVIDER: Dr. Jade * (DICTATED BY KIA SABA, [place]) CHIEF COMPLAINT: "I felt like I was going to have a seizure." HISTORY OF PRESENT ILLNESS: Mr. Lord is a 52-year-old male patient, who has a well-documented history of alcohol abuse, he drinks 12 to 30 pack a day. He has been drinking heavily for several years. His longest period of sobriety was 3-1/2 years. He says he has been drinking heavily the last several weeks. He, today, woke up this morning, he said that he just decided that he needs to stop because he is killing himself. He says that it was just making his body feel terrible. His last drink was last night. He woke up this morning. He walked down to the [facility] crew that lives a few doors down from him and he felt like he was going to have a seizure, he felt shaky, he felt hot, his heart was racing, he has had seizures before from withdrawing. He summoned the ambulance and was brought into the hospital. He says he has been having sweats while he was here. It was noted that he was flushed. He says that he has been coughing very significantly over the last several days. It has been causing him chest pain when he does cough. He has had chest pain worse with taking a deep breath, has not had any fevers. He says he has been having some diarrhea, but no vomiting. He does admit to having some epigastric pain. No tarry stools. He has not been vomiting up any blood. He denies having any shortness of breath, but he was concerned because he was going into withdrawals. He is interested and trying to abstain from alcohol, so he came into the hospital today to be evaluated. PAST MEDICAL HISTORY: 1. EtOH abuse. 2. Depression. 3. Anxiety. 4. GERD. 5. Alcoholic hepatitis. 6. History of seizures. PAST SURGICAL HISTORY: Denied. MEDICATIONS: His home meds which he says he has not taken in over a week, but they include: 1. Wellbutrin 150 mg daily. 2. Omeprazole 20 mg daily. 3. Remeron 30 mg at bedtime. 4. Neurontin 300 mg p.o. t.i.d. 5. Atarax 25 mg p.o. every 6 hours as needed. ALLERGIES TO MEDICATIONS: Include TOPAMAX. FAMILY HISTORY: His mother had colon cancer. Father had a history of CAD. SOCIAL HISTORY: He is a pack-a-day smoker and smoking for about 30 years. He is a heavy drinker and drinking a 12 pack to 30 pack daily. He has been drinking heavy for several years. He smokes marijuana occasionally and denies any cocaine or heroin abuse or any other illicit's. He does not appoint a surrogate maker at this point. REVIEW OF SYSTEMS: There is no documented fever. He denied having any significant weight change. He denies having any double vision. There is no ear discharge. He did admit to having sore throat, some rhinorrhea, he does admit to having coughing. There is no shortness of breath. He does admit to having chest pain, which is worse with taking a deep breath and when he coughs. He denies having any abdominal pain. There was some nausea and vomiting. He does admit to having some epigastric pain, but no lower abdominal pain. He denies having any lightheadedness. No dysuria, no frequency. No seizure, no loss of consciousness. No pruritus and had no skin ulcerations. Review of 14 systems completed, all others negative. PHYSICAL EXAMINATION GENERAL: At this time, Mr. Lord is a 52-year-old male patient. He is sitting in the ED stretcher. He does not appear to be in any acute distress. VITAL SIGNS: Blood pressure 150/80, pulse 88, respirations 16, O2 sat 95%, temperature 96.5. HEENT: Head: Atraumatic. Eyes: EOMs are intact. Sclerae anicteric, not pale. Throat: Oral mucosa appears to be dry. No oropharyngeal erythema. NECK: Supple. LUNGS: Clear to auscultation. No wheezes, rales, or rhonchi. HEART: Sounds S1, S2. Regular rate and rhythm. No murmurs, rubs, or gallops. ABDOMEN: Soft, it was flat, it was nontender. Bowel sounds were present. EXTREMITIES: Pulses were 2+ throughout. He is able to move all 4 extremities with 5/5 strength. NEUROLOGIC: The patient is awake. He is alert. He is oriented x3. His tongue is midline. He had no gross focal deficits. SKIN: Intact. DIAGNOSTIC STUDIES/LAB DATA: WBC 6.4, RBC of 5.51, hemoglobin 18.0, hematocrit of 51, platelet count of 188. INR 0.95. Sodium was 141, potassium 3.9, chloride of 99, bicarb 24, BUN 13, creatinine 0.93, glucose 94, calcium 9.8 , mag 1.9. Total bili 1.3, AST 37, ALT 30, alk phos 55. Albumin 4.8. TSH 0.76. Toxicology: alcohol level was 62. Chest x-ray obtained today, impression: No radiographic evidence for acute cardiopulmonary abnormality. EKG shows a normal sinus rhythm with no ST elevations, rate of 91, no T-wave inversions were noted. Old medical records reviewed. ASSESSMENT AND PLAN: Mr. Lord is a 52-year-old male patient coming into the ED today with complaints of alcohol withdrawal symptoms. We were asked to evaluate for admission. He will be admitted under inpatient status for: 1. EtOH abuse with early signs of withdrawal. At this point, with the history of seizure, I will put him on standing Ativan. I will put him on [facility] protocol, give him banana bag. come evaluate the patient and we will continue to follow him. 2. Chest pain. Again, I am concerned he has been having upper respiratory infection symptoms. This certainly could be costochondritis or pleurisy. The plan would be to go ahead and check him for flu, legionella antigen, Streptococcus pneumoniae antigen, sputum culture, and we will continue to follow him and treat him supportively. 3. Depression, anxiety. Continue meds as prescribed. 4. Gastroesophageal reflux disease. I suspect he probably has gastritis from his alcoholism. At this point, we will go ahead and continue PPI therapy. I could consider adding some Carafate. 5. Seizures. Seizure precautions have been ordered. 6. DVT prophylaxis. He will be placed on heparin subcu. 7. Code status. Full code. 8. Fluids, electrolytes, and nutrition. He can have regular diet. TIME SPENT: On the admission was 60 minutes, greater than half time was spent face- to-face with the patient obtaining my history and physical, other half of the time was spent going over the plan of care with the patient and implementing the plan of care. I did discuss plan of care with my attending, Dr. Jade; she is in agreement. KIA SABA NP [id number]/[facility] #: [id number] BHUMI
[2017-12-14 20:14] LABS: Urine Appearance Clear; Urine Blood Negative (Negative); Urine Color Yellow; Urine Ketones 2+ (Negative); Urine Protein Negative (Negative); Urine Specific Gravity 1.023 (1.010-1.030); Urine Urobilinogen Negative (Negative)
[2017-12-14] MEDS: Mirtazapine TAB* 15 MG PO SCH (22:45)
[2017-12-14] MEDS: Nicotine Patch Removal NOTE PATCH OFF SCH (22:47)
[2017-12-15] MEDS: LORazepam INJ* 2 MG/ML 1 ML VIAL IV SCH ×2 (05:34→17:11)
[2017-12-15] MEDS: Heparin VIAL(*) 5000 UNITS/ML VIAL (FIVE THOUSAND) SUBCUT SCH ×3 (05:34→20:30)
[2017-12-15 06:36] LABS: ABS Basophils 0 10^3/ul (0-0.2); ABS Eosinophils 0 10^3/ul (0-0.6); ABS Lymphocytes 1.3 10^3/ul (1.0-4.8); ABS Monocytes 0.4 10^3/ul (0-0.8); ABS Nucleated RBC 0 10^3/ul; Eosinophil % 0.9 % (0-6); Hematocrit 43 % (42-52); Hemoglobin 15.3 g/dl (14.0-18.0); Lymphocyte % 27.3 % (25-47); Mean Corpuscular HGB Conc 36 g/dl (31-36); Mean Corpuscular Hemoglobin 33 pg (27-31); Mean Corpuscular Volume 92 fL (80-94); Mean Platelet Volume 7 um3 (7.4-10.4); Nucleated Red Blood Cells % 0.1; Platelet Count 128 10^3/ul (150-450); Red Blood Count 4.64 10^6/ul (4.0-5.4); Red Cell Distribution Width 13 % (10.5-15); White Blood Count 4.7 10^3/ul (3.5-10.8)
[2017-12-15 06:43] LABS: EGFR Non-African American 108.5 (>60)
[2017-12-15] MEDS: Gabapentin CAP(*) 300 MG PO SCH ×3 (08:26→20:30)
[2017-12-15] MEDS: buPROPion SR TAB.SR* 150 MG PO SCH (08:26)
[2017-12-15] MEDS: Folic Acid TAB* 1 MG PO SCH (08:26)
[2017-12-15] MEDS: Multivitamins/Minerals TAB PO SCH (08:26)
[2017-12-15] MEDS: Thiamine TAB* 100 MG TAB PO SCH (08:26)
[2017-12-15] MEDS: Nicotine PATCH 21 MG/24 HR* PATCH TRANSDERM SCH (08:26)
--- NOTE | 2017-12-15 09:12 | PN ---
Subjective Date of Service: 12/15/17 Interval History: Pt examined today at the bedside. Pt states he is still having some shaking. He denies chest pain or sob. Denies nausea. States he vomited once yesterday. Denies lightheadedness. ROS-denies fever, denies chills, denies nausea, denies vomiting, denies lightheadedness, denies loc, denies chest pain, denies sob, denies abdominal pain, review of 11 systems completed all others negative. Objective Active Medications: Acetaminophen (Tylenol Tab*) 650 mg PO Q4H PRN PRN Reason: FEVER/PAIN Last Admin: 12/14/17 14:47 Dose: 650 mg Bupropion HCl (Wellbutrin Sr Tab*) 150 mg PO DAILY [facility] Last Admin: 12/15/17 08:26 Dose: 150 mg Folic Acid (Folvite Tab*) 1 mg PO DAILY [facility] Last Admin: 12/15/17 08:26 Dose: 1 mg Gabapentin (Neurontin Cap(*)) 300 mg PO TID [facility] Last Admin: 12/15/17 08:26 Dose: 300 mg Heparin Sodium (Porcine) (Heparin Vial(*)) 5,000 units SUBCUT Q8HR [facility] Last Admin: 12/15/17 05:34 Dose: 5,000 units Hydroxyzine HCl (Atarax Tab*) 25 mg PO Q6H PRN PRN Reason: AGITATION/ANXIETY/INSOMNIA Sodium Chloride (Ns 0.9% 1000 Ml*) 1,000 mls @ 100 mls/hr IV PER RATE [facility] Last Admin: 12/14/17 15:48 Dose: 100 mls/hr Lorazepam (Ativan Inj*) 1 mg IV Q12H [facility] PRN Reason: Taper Stop: 12/17/17 08:59 Last Admin: 12/15/17 05:34 Dose: 1 mg Lorazepam (Ativan Tab(*)) 0 - 6 mg PO .[facility] PROTOCOL [facility] PRN Reason: Protocol Mirtazapine (Remeron Tab*) 30 mg PO BEDTIME [facility] Last Admin: 12/14/17 22:45 Dose: 30 mg Multivitamins/Minerals (Theragran/Minerals Tab*) 1 tab PO DAILY [facility] Last Admin: 12/15/17 08:26 Dose: 1 tab Nicotine (Nicotine Patch 21 Mg/24 Hr*) 1 patch TRANSDERM DAILY@0800 [facility] Last Admin: 12/15/17 08:26 Dose: 1 patch Ondansetron HCl (Zofran Inj*) 4 mg IV Q6H PRN PRN Reason: NAUSEA Pantoprazole Sodium (Protonix Iv*) 40 mg IV Q24H [facility] Last Admin: 12/14/17 14:48 Dose: 40 mg Pharmacy Profile Note (Nicotine Patch Removal Note*) 1 note PATCH OFF 2100 [facility] Last Admin: 12/14/17 22:47 Dose: 1 note Thiamine HCl (Vitamin B-1 Tab*) 100 mg PO DAILY [facility] Last Admin: 12/15/17 08:26 Dose: 100 mg Vital Signs - 8 hr 12/15/17 12/15/17 12/15/17 01:26 03:00 03:47 Temperature 97.4 F 98.4 F Pulse Rate 71 71 Respiratory 16 16 16 Rate Blood Pressure 139/79 139/79 (mmHg) O2 Sat by Pulse 100 97 Oximetry 12/15/17 12/15/17 12/15/17 05:00 05:21 05:34 Temperature 98.2 F Pulse Rate 78 Respiratory 16 16 16 Rate Blood Pressure 132/81 (mmHg) O2 Sat by Pulse 97 Oximetry 12/15/17 12/15/17 12/15/17 07:14 08:25 08:26 Temperature 98.7 F Pulse Rate 85 Respiratory 20 16 Rate Blood Pressure 141/81 (mmHg) O2 Sat by Pulse 97 96 Oximetry Oxygen Devices in Use Now: None Appearance: 52 y/o male patient sitting in chair, NAD, Eyes: No Scleral Icterus Ears/Nose/Mouth/Throat: NL Teeth, Lips, Gums Neck: NL Appearance and Movements; NL JVP Respiratory: Symmetrical Chest Expansion and Respiratory Effort Cardiovascular: NL Sounds; No Murmurs; No JVD Abdominal: NL Sounds; No Tenderness; No Distention Extremities: No Edema Skin: No Rash or Ulcers Neurological: Alert and Oriented x 3 Lines/Tubes/Other Access: Clean, Dry and Intact Peripheral IV Result Diagrams: 12/15/17 06:21 12/15/17 06:21 Microbiology and Other Data: Microbiology 12/14/17 20:05 Legionella Urinary Antigen - Final Urine Negative Legionella Streptococcus pneumoniae Ag Screen - Final Negative S. pneumo Antigen 12/14/17 12:40 Influenza Types A,B Antigen (KASSI) - Final Nasal Specimen received for Influenza A/B Molecular testing Assess/Plan/Problems-Billing Assessment: 52 y/o male patient presenting to [facility] with complaints of etoh withdrawl, - Patient Problems (1) Thrombocytopenia Current Visit: Yes Status: Acute Priority: High Comment: PLT down by 60 K today 180 -120, no signs of bleeding likely r/t etoh abuse, will monitor especially while on heparin therapy for dvt prevention (2) Anxiety Current Visit: Yes Status: Acute Priority: High Comment: continue with supportive care, (3) FEN Current Visit: Yes Status: Acute Priority: High Comment: Regular Diet (4) Alcohol withdrawal Current Visit: Yes Status: Acute Priority: High Comment: Wam protcol scroing between 7-8 social work following, seziure prophylaxis ordered, (5) DVT prophylaxis Current Visit: Yes Status: Acute Priority: High Comment: - SQ Heparin. (6) Depression Current Visit: Yes Status: Acute Priority: High Comment: continue with home meds, (7) Full code status Current Visit: Yes Status: Acute Priority: High (8) GERD (gastroesophageal reflux disease) Current Visit: Yes Status: Acute Priority: High Comment: Will change protonic to prilosec, Status and Disposition: still scoring on wam, social work following will need rehab at d/c
[2017-12-15] MEDS: LORazepam TAB(*) 1 MG PO SCH ×4 (09:50→20:29)
--- NOTE | 2017-12-15 18:03 | ED ---
Austin Byrd Angela, scribed for Rick Gonsales MD on 12/14/17 at 0818 . Substance Abuse/Use - HPI Summary HPI Summary: This pt is a 52 y/o male presenting to [facility] via EMS for alcohol detox. Pt reports he is in alcohol withdrawal, he has been vomiting and has generalized weakness. Pt states he drinks 15-20 beers a day, and his last drink was yesterday at 20:00. He notes he quit drinking alcohol for 1.5 months until 3 weeks ago. Pt has been drinking daily for the past 3 weeks. Pt has history of seizures. - History Of Current Complaint Chief Complaint: EDDetoxRequest Stated Complaint: DETOX Time Seen by Provider: 12/14/17 07:55 Hx Obtained From: Patient Onset/Duration of Drug/ETOH Abuse: Weeks Ingestion History: Type/Name Of Drug - Alcohol, Approximate Time Of Ingestion - last drink was yesterday at 20:00 Overdose Characteristics: Oral Timing Of Abuse: Daily Severity Currently: Moderate Character: Other - shaking Aggravating Factor(s): Nothing Alleviating Factor(s): Nothing Associated Signs And Symptoms: Nausea, Vomiting, Other: - generalized weakness - Allergies/Home Medications Allergies/Adverse Reactions: Allergies Allergy/AdvReac Type Severity Reaction Status Date / Time topiramate AdvReac Muscle Ache Verified 12/14/17 08:51 Home Medications: Home Medications Gabapentin CAP(*) [Neurontin 300 CAP(*)] 300 mg PO TID 12/14/17 [History Confirmed 12/14/17] PMH/Surg Hx/FS Hx/Imm Hx Endocrine/Hematology History: Denies: Hx Blood Transfusions, Hx Thyroid Disease Respiratory History: Reports: Hx Pneumonia, Hx Seasonal Allergies GI History: Reports: Hx Cirrhosis, Hx Gastroesophageal Reflux Disease, Hx Ulcer Musculoskeletal History: Reports: Hx Arthritis, Hx Back Problems, Hx Gout, Other Musculoskeletal History - b/l leg pain Sensory History: Denies: Hx Cataracts, Hx Contacts or Glasses, Hx Deafness, Hx Hearing Aid Opthamlomology History: Denies: Hx Cataracts, Hx Contacts or Glasses Neurological History: Reports: Hx Headaches, Hx Migraine, Hx Seizures Denies: Hx Spinal Cord Injury Psychiatric History: Reports: Hx Anxiety, Hx Depression, Hx Inpatient Treatment , Hx Community Mental Health Tx, Hx Suicide Attempt, Hx Substance Abuse Denies: Hx Eating Disorder, Hx Post Traumatic Stress Disorder, Hx of Violent Episodes Against Others - Surgical History Surgery Procedure, Year, and Place: none - Immunization History Date of Tetanus Vaccine: PT STATES UNSURE Date of Influenza Vaccine: NONE Infectious Disease History: No Infectious Disease History: Reports: Hx Hepatitis - Alcoholic hepatitis, Hx of Known/Suspected MRSA Denies: Hx Clostridium Difficile, Traveled Outside the US in Last 30 Days - Family History Known Family History: Positive: Other - EtOH abuse, bipolar disorder, colon ca - Social History Alcohol Use: Daily Alcohol Amount: 10-20 drinks per day Hx Substance Use: Yes Substance Use Type: Reports: Marijuana Substance Use Comment - Amount & Last Used: 10/01/16 Hx Tobacco Use: Yes Smoking Status (MU): Heavy Every Day Tobacco Smoker Type: Cigarettes Amount Used/How Often: Patient has smoked cigarette within the last 30 days. Length of Time of Smoking/Using Tobacco: 30 years Have You Smoked in the Last Year: Yes Review of Systems Negative: Fever Eyes: Negative ENT: Negative Positive: Vomiting, Nausea Musculoskeletal: Negative Skin: Negative Positive: Weakness - generalized All Other Systems Reviewed And Are Negative: Yes Physical Exam - Summary Physical Exam Summary: VITAL SIGNS: Reviewed. GENERAL: Patient is a well-developed and nourished male. Patient is not in any acute respiratory distress. HEAD AND FACE: No signs of trauma. No ecchymosis, hematomas or skull depressions. No sinus tenderness. EYES: PERRLA, EOMI x 2, No injected conjunctiva, no nystagmus. EARS: Hearing grossly intact. Ear canals and tympanic membranes are within normal limits. MOUTH: Oropharynx within normal limits. NECK: Supple, trachea is midline, no adenopathy, no JVD, no carotid bruit, no c- spine tenderness, neck with full ROM. CHEST: Symmetric, no tenderness at palpation LUNGS: Clear to auscultation bilaterally. No wheezing or crackles. CVS: Regular rate and rhythm, S1 and S2 present, no murmurs or gallops appreciated. ABDOMEN: Soft, non-tender. No signs of distention. No rebound no guarding, and no masses palpated. Bowel sounds are normal. EXTREMITIES: FROM in all major joints, no edema, no cyanosis or clubbing. Pt with asterixis. NEURO: Alert and oriented x 3. No acute neurological deficits. Speech is normal and follows commands. Pt with asterixis. SKIN: warm and diaphoretic. Triage Information Reviewed: Yes Vital Signs On Initial Exam: Initial Vitals Temp Pulse Resp BP Pulse Ox 96.5 F 94 16 153/79 100 12/14/17 07:55 12/14/17 07:55 12/14/17 07:55 12/14/17 07:55 12/14/17 07:55 Vital Signs Reviewed: Yes Diagnostics - Vital Signs Vital Signs Temp Pulse Resp BP Pulse Ox 12/14/17 07:55 96.5 F 94 16 153/79 100 - Laboratory Result Diagrams: 12/14/17 08:15 12/14/17 08:15 Lab Statement: Any lab studies that have been ordered have been reviewed, and results considered in the medical decision making process. - Radiology Chest XR Xray Interpretation: No Acute Changes - IMPRESSION: No radiographic evidence for acute cardiopulmonary abnormalitiy on this portable chest x-ray. Dr. Gonsales has reviewed this radiology report. Radiology Interpretation Completed By: Radiologist - EKG 07:57 Cardiac Rate: NL EKG Rhythm: Sinus Rhythm - at 91 bpm EKG Interpretation: No ST elevaiton. Normal axis. Course/Dx - Course Assessment/Plan: This pt is a 52 y/o male presenting to [facility] via EMS for alcohol detox. Pt reports he is in alcohol withdrawal, he has been vomiting and has generalized weakness. Pt states he drinks 15-20 beers a day, and his last drink was yesterday at 20:00. He notes he quit drinking alcohol for 1.5 months until 3 weeks ago. Pt has been drinking daily for the past 3 weeks. Pt has history of seizures. Test results without any significant abnormalities except for alcohol level of 62. Influenza A and B are negative. The pt is diaphoretic and has asterixis, therefore I believe the pt is having an alcohol withdrawal. Pt was given Ativan. I discussed the pts case with Dr. Jade, hospitalist, who accepted the pt for admission. Pt is hemodynamically stable, alert and oriented x3. - Diagnoses Provider Diagnoses: Alcohol withdrawal - Physician Notifications Discussed Care Of Patient With: Nohelia Jade Time Discussed With Above Provider: 11:29 Instructed by Provider To: Other - I discussed pt care with Dr. Jade, hospitalist, who has agreed to admit the pt. Discharge - Discharge Plan Condition: Stable Disposition: ADMITTED TO [facility] The documentation as recorded by the Austin lutz Angela accurately reflects the service I personally performed and the decisions made by , Rick Gonsales MD.
[2017-12-15] MEDS: Mirtazapine TAB* 15 MG PO SCH (20:28)
[2017-12-15] MEDS: Nicotine Patch Removal NOTE PATCH OFF SCH (20:30)
[2017-12-16] MEDS: LORazepam TAB(*) 1 MG PO SCH ×2 (02:19→16:51)
[2017-12-16] MEDS: Acetaminophen TAB* 325 MG PO PRN ×3 (02:20→21:43)
[2017-12-16] MEDS: Omeprazole CAP* 20 MG PO SCH (05:39)
[2017-12-16] MEDS: Heparin VIAL(*) 5000 UNITS/ML VIAL (FIVE THOUSAND) SUBCUT SCH ×3 (05:40→21:44)
[2017-12-16] MEDS: LORazepam INJ* 2 MG/ML 1 ML VIAL IV SCH (05:41)
[2017-12-16 06:30] LABS: Hematocrit 44 % (42-52); Hemoglobin 15.5 g/dl (14.0-18.0); Mean Corpuscular HGB Conc 35 g/dl (31-36); Mean Corpuscular Hemoglobin 33 pg (27-31); Mean Corpuscular Volume 93 fL (80-94); Mean Platelet Volume 7 um3 (7.4-10.4); Platelet Count 119 10^3/ul (150-450); Red Blood Count 4.76 10^6/ul (4.0-5.4); Red Cell Distribution Width 13 % (10.5-15); White Blood Count 4.2 10^3/ul (3.5-10.8)
[2017-12-16 06:44] LABS: EGFR Non-African American 97.9 (>60)
[2017-12-16 06:50] LABS: ABS Basophils 0 10^3/ul (0-0.2); ABS Eosinophils 0.1 10^3/ul (0-0.6); ABS Lymphocytes 1.2 10^3/ul (1.0-4.8); ABS Monocytes 0.4 10^3/ul (0-0.8); ABS Neutrophils 2.4 10^3/ul (1.5-7.7); ABS Nucleated RBC 0 10^3/ul; Eosinophil % 1.6 % (0-6); Lymphocyte % 30.2 % (25-47); Nucleated Red Blood Cells % 0.2
[2017-12-16] MEDS: Multivitamins/Minerals TAB PO SCH (08:22)
[2017-12-16] MEDS: buPROPion SR TAB.SR* 150 MG PO SCH (08:23)
[2017-12-16] MEDS: Folic Acid TAB* 1 MG PO SCH (08:23)
[2017-12-16] MEDS: Thiamine TAB* 100 MG TAB PO SCH (08:23)
[2017-12-16] MEDS: Nicotine PATCH 21 MG/24 HR* PATCH TRANSDERM SCH (08:23)
[2017-12-16] MEDS: Gabapentin CAP(*) 300 MG PO SCH ×3 (08:23→21:39)
[2017-12-16] MEDS ORDERED: Mouth Piece, Nicotine* 1 EACH CARTRIDGE INH PRN ×2 (10:02)
[2017-12-16] MEDS: Nicotine Inhaler* 10 MG AMP INH PRN ×2 (10:28→13:35)
--- NOTE | 2017-12-16 13:53 | PN ---
Subjective Date of Service: 12/16/17 Interval History: Pt feels well. a little dizzy after he received the scheduled lorazepam dose in AM. Objective Active Medications: Acetaminophen (Tylenol Tab*) 650 mg PO Q4H PRN PRN Reason: FEVER/PAIN Last Admin: 12/16/17 13:34 Dose: 650 mg Bupropion HCl (Wellbutrin Sr Tab*) 150 mg PO DAILY [facility] Last Admin: 12/16/17 08:23 Dose: 150 mg Device (Nicotine Mouth Piece*) 1 each INH .USE WITH NICOTROL PRN PRN Reason: CRAVING Last Admin: 12/16/17 10:28 Dose: 1 each Folic Acid (Folvite Tab*) 1 mg PO DAILY [facility] Last Admin: 12/16/17 08:23 Dose: 1 mg Gabapentin (Neurontin Cap(*)) 300 mg PO TID [facility] Last Admin: 12/16/17 13:34 Dose: 300 mg Heparin Sodium (Porcine) (Heparin Vial(*)) 5,000 units SUBCUT Q8HR [facility] Last Admin: 12/16/17 13:34 Dose: 5,000 units Hydroxyzine HCl (Atarax Tab*) 25 mg PO Q6H PRN PRN Reason: AGITATION/ANXIETY/INSOMNIA Sodium Chloride (Ns 0.9% 1000 Ml*) 1,000 mls @ 100 mls/hr IV PER RATE [facility] Last Admin: 12/14/17 15:48 Dose: 100 mls/hr Lorazepam (Ativan Tab(*)) 0 - 6 mg PO .PER [facility] PROTOCOL [facility] PRN Reason: Protocol Last Admin: 12/16/17 02:19 Dose: 2 mg Mirtazapine (Remeron Tab*) 30 mg PO BEDTIME [facility] Last Admin: 12/15/17 20:28 Dose: 30 mg Multivitamins/Minerals (Theragran/Minerals Tab*) 1 tab PO DAILY [facility] Last Admin: 12/16/17 08:22 Dose: 1 tab Nicotine (Nicotine Patch 21 Mg/24 Hr*) 1 patch TRANSDERM DAILY@0800 [facility] Last Admin: 12/16/17 08:23 Dose: 1 patch Nicotine (Nicotine Inhaler*) 10 mg INH Q2H PRN PRN Reason: CRAVING Last Admin: 12/16/17 13:35 Dose: 10 mg Omeprazole (Prilosec Cap*) 20 mg PO DAILY@0600 [facility] Last Admin: 12/16/17 05:39 Dose: 20 mg Ondansetron HCl (Zofran Inj*) 4 mg IV Q6H PRN PRN Reason: NAUSEA Pharmacy Profile Note (Nicotine Patch Removal Note*) 1 note PATCH OFF 2100 [facility] Last Admin: 12/15/17 20:30 Dose: 1 note Thiamine HCl (Vitamin B-1 Tab*) 100 mg PO DAILY [facility] Last Admin: 12/16/17 08:23 Dose: 100 mg Vital Signs - 8 hr 12/16/17 12/16/17 12/16/17 07:00 08:23 08:27 Temperature 97.9 F Pulse Rate 80 Respiratory 20 18 16 Rate Blood Pressure 124/75 (mmHg) O2 Sat by Pulse 96 96 Oximetry 12/16/17 12/16/17 12/16/17 08:31 10:01 11:58 Temperature 98.5 F Pulse Rate 105 Respiratory 16 20 24 Rate Blood Pressure 127/75 (mmHg) O2 Sat by Pulse 97 Oximetry 12/16/17 12/16/17 12/16/17 13:09 13:10 13:12 Temperature 97.2 F 97.2 F Pulse Rate 95 95 Respiratory 16 16 16 Rate Blood Pressure 133/77 133/77 (mmHg) O2 Sat by Pulse 96 96 Oximetry 12/16/17 13:34 Temperature Pulse Rate Respiratory 16 Rate Blood Pressure (mmHg) O2 Sat by Pulse Oximetry Oxygen Devices in Use Now: None Appearance: 52 yo M in nAD, AAOx3 Eyes: No Scleral Icterus, PERRLA Ears/Nose/Mouth/Throat: NL Teeth, Lips, Gums, Mucous Membranes Moist Neck: NL Appearance and Movements; NL JVP, Trachea Midline Respiratory: Symmetrical Chest Expansion and Respiratory Effort, Clear to Auscultation Cardiovascular: NL Sounds; No Murmurs; No JVD, RRR Abdominal: NL Sounds; No Tenderness; No Distention Lymphatic: No Cervical Adenopathy Extremities: No Edema, No Clubbing, Cyanosis Skin: No Rash or Ulcers, No Nodules or Sclerosis Neurological: Alert and Oriented x 3, NL Muscle Strength and Tone Result Diagrams: 12/16/17 06:16 12/16/17 06:16 Microbiology and Other Data: Microbiology 12/14/17 20:05 Legionella Urinary Antigen - Final Urine Negative Legionella Streptococcus pneumoniae Ag Screen - Final Negative S. pneumo Antigen 12/14/17 12:40 Influenza Types A,B Antigen (KASSI) - Final Nasal Specimen received for Influenza A/B Molecular testing Assess/Plan/Problems-Billing Assessment: 52 y/o male patient presenting to [facility] with complaints of ETOH withdrawal, - Patient Problems (1) Alcohol withdrawal Comment: cont WAM protocol, although he has not scored above 4 since yesterday social work following, possible rahab placement in the next 2 days sezure prophylaxis will be titrated down today (2) GERD (gastroesophageal reflux disease) Comment: Protonix changed to prilosec (on formulary) (3) DVT prophylaxis Comment: - SQ Heparin. Status and Disposition: Inpatient, awaiting rehab
[2017-12-16] MEDS: Mirtazapine TAB* 15 MG PO SCH (21:38)
[2017-12-16] MEDS: LORazepam TAB(*) 0.5 MG PO SCH (21:39)
[2017-12-16] MEDS: Nicotine Patch Removal NOTE PATCH OFF SCH (21:44)
[2017-12-17] MEDS: NS 0.9% 1000 ML* 1,000 ML IV SCH (00:26)
[2017-12-17] MEDS: LORazepam TAB(*) 1 MG PO SCH (04:35)
[2017-12-17 04:50] LABS: ABS Basophils 0 10^3/ul (0-0.2); ABS Eosinophils 0.1 10^3/ul (0-0.6); ABS Lymphocytes 1.6 10^3/ul (1.0-4.8); ABS Monocytes 0.5 10^3/ul (0-0.8); ABS Neutrophils 3.7 10^3/ul (1.5-7.7); ABS Nucleated RBC 0 10^3/ul; Eosinophil % 1.7 % (0-6); Hematocrit 43 % (42-52); Hemoglobin 15.3 g/dl (14.0-18.0); Lymphocyte % 26.9 % (25-47); Mean Corpuscular HGB Conc 36 g/dl (31-36); Mean Corpuscular Hemoglobin 33 pg (27-31); Mean Corpuscular Volume 93 fL (80-94); Mean Platelet Volume 8 um3 (7.4-10.4); Nucleated Red Blood Cells % 0; Platelet Count 110 10^3/ul (150-450); Red Blood Count 4.63 10^6/ul (4.0-5.4); Red Cell Distribution Width 13 % (10.5-15); White Blood Count 5.8 10^3/ul (3.5-10.8)
[2017-12-17] MEDS: Heparin VIAL(*) 5000 UNITS/ML VIAL (FIVE THOUSAND) SUBCUT SCH (06:06)
[2017-12-17] MEDS: Omeprazole CAP* 20 MG PO SCH (06:06)
[2017-12-17] MEDS: Nicotine Inhaler* 10 MG AMP INH PRN ×2 (06:09→08:51)
[2017-12-17 06:50] LABS: ABS Basophils 0 10^3/ul (0-0.2); ABS Eosinophils 0.1 10^3/ul (0-0.6); ABS Lymphocytes 1.4 10^3/ul (1.0-4.8); ABS Monocytes 0.4 10^3/ul (0-0.8); ABS Neutrophils 3.2 10^3/ul (1.5-7.7); ABS Nucleated RBC 0 10^3/ul; Eosinophil % 1.9 % (0-6); Hematocrit 43 % (42-52); Hemoglobin 15.4 g/dl (14.0-18.0); Lymphocyte % 27.6 % (25-47); Mean Corpuscular HGB Conc 36 g/dl (31-36); Mean Corpuscular Hemoglobin 33 pg (27-31); Mean Corpuscular Volume 92 fL (80-94); Mean Platelet Volume 8 um3 (7.4-10.4); Nucleated Red Blood Cells % 0.1; Platelet Count 113 10^3/ul (150-450); Red Blood Count 4.63 10^6/ul (4.0-5.4); Red Cell Distribution Width 13 % (10.5-15); White Blood Count 5.1 10^3/ul (3.5-10.8)
[2017-12-17] MEDS: Nicotine PATCH 21 MG/24 HR* PATCH TRANSDERM SCH (08:51)
[2017-12-17] MEDS: buPROPion SR TAB.SR* 150 MG PO SCH (08:54)
[2017-12-17] MEDS: Multivitamins/Minerals TAB PO SCH (08:54)
[2017-12-17] MEDS: Gabapentin CAP(*) 300 MG PO SCH (08:54)
[2017-12-17] MEDS: LORazepam TAB(*) 0.5 MG PO SCH (08:54)
[2017-12-17] MEDS: Thiamine TAB* 100 MG TAB PO SCH (08:54)
[2017-12-17] MEDS: Folic Acid TAB* 1 MG PO SCH (08:54)
[2017-12-17 09:53] VITALS: BP 139/77
--- NOTE | 2017-12-18 08:54 | DS ---
CC: Dr. Aleman; [place], [place].* DISCHARGE SUMMARY: DATE OF ADMISSION: 12/14/17. DATE OF DISCHARGE: 12/17/17 - transfer to [place], [place]. PRIMARY CARE PROVIDER: Dr. Aleman. DISCHARGE DIAGNOSIS: Alcohol withdrawal. SECONDARY DIAGNOSES: 1. History of alcoholism. 2. History of depression. 3. Anxiety. 4. Gastroesophageal reflux disease. 5. History of seizures. MEDICATIONS AT DISCHARGE: Include: 1. Thiamine 100 mg daily. 2. Folic acid 1 mg daily. 3. Wellbutrin XR 150 mg daily. 4. Gabapentin 300 mg 3 times a day. 5. Atarax 25 mg every 6 hours p.r.n. 6. Remeron 30 mg at bedtime. 7. Multivitamin 1 tablet daily. 8. Nicotine inhaler 10 mg every 2 hours p.r.n. tobacco withdrawal. 9. Omeprazole 20 mg daily. LABORATORY DATA AND STUDIES PERFORMED DURING THE HOSPITAL STAY: Included: 10/25: Sodium 139, potassium 3.6, chloride 105, carbon dioxide 28, BUN 9, creatinine 0.82. White blood cell count 5.1, hemoglobin 15.4, hematocrit 43, platelets 113. Patient's liver function test obtained on admission showed bilirubin of 1.3, AST of 37, ALT of 30, alkaline phosphatase 85, TSH was 0.76. HOSPITALIZATION COURSE: Arthur Lord is a 52-year-old male alcoholic who presented to the hospital 12/14/17 going through withdrawal and feeling "he is going to have a seizure." He has history of alcohol withdrawal seizures in the past. Patient was admitted, placed on Ativan taper for seizure prophylaxis as well as Ativan protocol for withdrawal. The last dose of Ativan he got was 0.5 mg in the morning on the day of discharge. Patient was seen by geriatric social worker and agreed to recommended inpatient alcohol rehab. [facility] [place] to which facility he is going to be transferred today. It is recommended that the facility he is going to be reassessed for further need of benzodiazepine for withdrawal, but at the time of discharge, he is alert and oriented x3, ambulating without any problems with very mild tremors in bilateral upper extremities. PHYSICAL EXAMINATION AT THE TIME OF DISCHARGE: Blood pressure 130/87, heart rate of 78, respiratory rate of 16, oxygen saturation 98% on room air, temperature 97.3. General: Patient is a very pleasant 52-year-old male who is no acute distress. Alert, awake and oriented x3. Poor historian. HEENT: Head atraumatic, normocephalic. Eyes: Pupils are equal, reactive to light and accommodation. Oropharynx is clear. Mucosa moist. Neck: Supple. No JVD. No bruits bilaterally. Cardiovascular: Regular rate and rhythm. No murmur. Respiratory: Clear to auscultation bilaterally. Abdomen: Soft, nontender. No hepatomegaly on palpation. Extremities: There is no edema. Pulses are +2 bilaterally. No clubbing, cyanosis. On neuro evaluation, speech clear. Cranial nerves II through XII grossly intact. Motor strength is 5/5 bilaterally. Patient has very fine tremors in bilateral hands. Please note that this is a short summary of the patient's hospitalization, please refer to further medical records for details. TIME SPENT: Approximately 35 minutes was spent on the patient's discharge. [id number]/CPS #: [id number] [facility]
== END 2017-12-17 10:39 | DRG 775 ==
LOC: ED 07:54 → MEDTELE 12:14 → MED 12-16 13:03
PROVIDERS: ADMIT Internal Medicine; ATTEND Internal Medicine
DX: F10.239 Alcohol dependence with withdrawal, unspecified (principal); D69.6 Thrombocytopenia, unspecified; Y90.9 Presence of alcohol in blood, level not specified; F32.9 Major depressive disorder, single episode, unspecified; F41.9 Anxiety disorder, unspecified; R25.1 Tremor, unspecified; K21.9 Gastro-esophageal reflux disease without esophagitis; F17.210 Nicotine dependence, cigarettes, uncomplicated; R07.9 Chest pain, unspecified; M19.90 Unspecified osteoarthritis, unspecified site; M10.9 Gout, unspecified; F12.90 Cannabis use, unspecified, uncomplicated; Z82.49 Family history of ischemic heart disease and other diseases of the circulatory system; Z88.8 Allergy status to other drugs, medicaments and biological substances; Z81.1 Family history of alcohol abuse and dependence; Z81.8 Family history of other mental and behavioral disorders; Z80.0 Family history of malignant neoplasm of digestive organs
CPT/HCPCS: 36415; 71045; 80048; 80053; 80307; 80320; 81003; 83690; 83735; 84443; 85025; 85610; 87502; 87899; 93005; 94760; 99283; 99406; A9270-GY; G0480; J1644; J2060; J2405; J3411

== ENCOUNTER 2018-02-09 08:28 | Emergency (ER) | payer OTHER ==
[2018-02-09] MEDS ORDERED: NS 0.9% 1000 ML* 1,000 ML IV ONE (08:49)
[2018-02-09 09:20] LABS: ABS Basophils 0.1 10^3/ul (0-0.2); ABS Eosinophils 0 10^3/ul (0-0.6); ABS Lymphocytes 0.8 10^3/ul (1.0-4.8); ABS Monocytes 0.6 10^3/ul (0-0.8); ABS Neutrophils 4.8 10^3/ul (1.5-7.7); ABS Nucleated RBC 0 10^3/ul; Eosinophil % 0.1 % (0-6); Hematocrit 48 % (42-52); Hemoglobin 16.9 g/dl (14.0-18.0); Lymphocyte % 13.3 % (25-47); Mean Corpuscular HGB Conc 35 g/dl (31-36); Mean Corpuscular Hemoglobin 33 pg (27-31); Mean Corpuscular Volume 94 fL (80-94); Mean Platelet Volume 7.3 um3 (7.4-10.4); Nucleated Red Blood Cells % 0.2; Platelet Count 208 10^3/ul (150-450); Red Blood Count 5.12 10^6/ul (4.0-5.4); Red Cell Distribution Width 14 % (10.5-15); White Blood Count 6.3 10^3/ul (3.5-10.8)
--- NOTE | 2018-02-09 09:26 | RAD ---
Indication: Weakness. 2 views of the chest including dual energy PA views demonstrate no mediastinal shift. Heart is of normal size and configuration. Lung case appear clear. Comparison is made with previous exam dated December 14, 2017. IMPRESSION: No active cardiopulmonary disease is noted.
[2018-02-09 09:31] LABS: EGFR Non-African American 84.7 (>60); Urine Appearance Cloudy; Urine Blood Negative (Negative); Urine Color Yellow; Urine Ketones Trace (Negative); Urine Protein 1+(30 mg/dL) (Negative); Urine Urobilinogen Negative (Negative)
[2018-02-09 10:21] VITALS: BP 147/84
--- NOTE | 2018-02-11 07:50 | ED ---
Austin Byrd Angela, scribed for Rick Gonsales MD on 02/09/18 at 0852 . Substance Abuse/Use - HPI Summary HPI Summary: This pt is a 52 y/o male presenting to [facility] c/o alcohol withdrawal. He complains of nausea, generalized weakness, tremors, and headache. Pt reports the last time he drank alcohol was yesterday at 16:00. Pt states he drinks 15 to 20 drinks daily. Denies chest pain, SOB, diaphoresis. Per triage note, pt finished rehab in [place] on 01/04/18 but started drinking again the following week. Pt is a current smoker. PMHx includes alcohol abuse and cirrhosis. - History Of Current Complaint Chief Complaint: EDDetoxRequest Stated Complaint: ALCOHOL WITHDRAWAL Time Seen by Provider: 02/09/18 08:46 Hx Obtained From: Patient Onset/Duration of Drug/ETOH Abuse: Days Ingestion History: Type/Name Of Drug - Alcohol, Amount Ingested - 15-20 drinks/ day Overdose Characteristics: Oral Timing Of Abuse: Daily Severity Currently: Moderate Character: Depressed Aggravating Factor(s): Nothing Alleviating Factor(s): Nothing Associated Signs And Symptoms: Nausea, Cirrhosis - hx of cirrhosis, Other: - POS : headache, tremors, generalized weakness. NEG: chest pain, SOB, diaphoresis. - Allergies/Home Medications Allergies/Adverse Reactions: Allergies Allergy/AdvReac Type Severity Reaction Status Date / Time topiramate AdvReac Muscle Ache Verified 02/09/18 08:36 Home Medications: Home Medications Bupropion XL* [Wellbutrin XL *] 150 mg PO DAILY 02/09/18 [History Confirmed 02/23] PMH/Surg Hx/FS Hx/Imm Hx Endocrine/Hematology History: Denies: Hx Blood Transfusions, Hx Thyroid Disease Respiratory History: Reports: Hx Pneumonia, Hx Seasonal Allergies GI History: Reports: Hx Cirrhosis, Hx Gastroesophageal Reflux Disease, Hx Ulcer Musculoskeletal History: Reports: Hx Arthritis, Hx Back Problems, Hx Gout, Other Musculoskeletal History - b/l leg pain Sensory History: Denies: Hx Cataracts, Hx Contacts or Glasses, Hx Deafness, Hx Hearing Aid Opthamlomology History: Denies: Hx Cataracts, Hx Contacts or Glasses Neurological History: Reports: Hx Headaches, Hx Migraine, Hx Seizures Denies: Hx Spinal Cord Injury Psychiatric History: Reports: Hx Anxiety, Hx Depression, Hx Inpatient Treatment , Hx Community Mental Health Tx, Hx Suicide Attempt, Hx Substance Abuse Denies: Hx Eating Disorder, Hx Post Traumatic Stress Disorder, Hx of Violent Episodes Against Others - Surgical History Surgery Procedure, Year, and Place: none - Immunization History Date of Tetanus Vaccine: PT STATES UNSURE Date of Influenza Vaccine: NONE Infectious Disease History: No Infectious Disease History: Reports: Hx Hepatitis - Alcoholic hepatitis, Hx of Known/Suspected MRSA Denies: Hx Clostridium Difficile, Traveled Outside the [place] in Last 30 Days - Family History Known Family History: Positive: Other - EtOH abuse, bipolar disorder, colon ca - Social History Alcohol Use: Daily Alcohol Amount: 10-20 drinks per day Hx Substance Use: Yes Substance Use Type: Reports: Marijuana Substance Use Comment - Amount & Last Used: 10/01/16 Hx Tobacco Use: Yes Smoking Status (MU): Heavy Every Day Tobacco Smoker Type: Cigarettes Amount Used/How Often: Patient has smoked cigarette within the last 30 days. Length of Time of Smoking/Using Tobacco: 30 years Have You Smoked in the Last Year: Yes Review of Systems Negative: Fever, Skin Diaphoresis Negative: Chest Pain Negative: Shortness Of Breath Positive: Nausea. Negative: Vomiting Neurological: Other - POS: tremors Positive: Headache, Weakness - generalized All Other Systems Reviewed And Are Negative: Yes Physical Exam - Summary Physical Exam Summary: VITAL SIGNS: Reviewed. GENERAL: Patient is a well-developed and nourished male who is lying comfortable in the stretcher. Patient is not in any acute respiratory distress. He is hemodynamically stable. HEAD AND FACE: No signs of trauma. No ecchymosis, hematomas or skull depressions. No sinus tenderness. EYES: PERRLA, EOMI x 2, No injected conjunctiva, no nystagmus. EARS: Hearing grossly intact. Ear canals and tympanic membranes are within normal limits. MOUTH: Oropharynx within normal limits. NECK: Supple, trachea is midline, no adenopathy, no JVD, no carotid bruit, no c- spine tenderness, neck with full ROM. CHEST: Symmetric, no tenderness at palpation LUNGS: Clear to auscultation bilaterally. No wheezing or crackles. CVS: Regular rate and rhythm, S1 and S2 present, no murmurs or gallops appreciated. ABDOMEN: Soft, non-tender. No signs of distention. No rebound no guarding, and no masses palpated. Bowel sounds are normal. EXTREMITIES: FROM in all major joints, no edema, no cyanosis or clubbing. NEURO: Alert and oriented x 3. No acute neurological deficits. Speech is normal and follows commands. He does not have any asterixis. SKIN: Dry and warm. Pt is not diaphoretic. PSYCH: Pt is not anxious. Triage Information Reviewed: Yes Vital Signs On Initial Exam: Initial Vitals Temp Pulse Resp BP Pulse Ox 97 F 93 19 141/90 100 02/09/18 08:33 02/09/18 08:33 02/09/18 08:33 02/09/18 08:33 02/09/18 08:33 Vital Signs Reviewed: Yes Diagnostics - Vital Signs Vital Signs Temp Pulse Resp BP Pulse Ox 02/09/18 08:33 97 F 93 19 141/90 100 - Laboratory Result Diagrams: 02/09/18 09:00 02/09/18 09:00 Lab Statement: Any lab studies that have been ordered have been reviewed, and results considered in the medical decision making process. - Radiology Chest XR Xray Interpretation: No Acute Changes - IMPRESSION: No active cardiopulmonary disease is noted. Dr. Gonsales has reviewed this radiology report. Radiology Interpretation Completed By: Radiologist Course/Dx - Course Assessment/Plan: This pt is a 52 y/o male presenting to [facility] c/o alcohol withdrawal. He complains of nausea, generalized weakness, tremors, and headache. Pt reports the last time he drank alcohol was yesterday at 16:00. Pt states he drinks 15 to 20 drinks daily. Denies chest pain, SOB, diaphoresis. Per triage note, pt finished rehab in [place] on 01/04/18 but started drinking again the following week. Pt is a current smoker. PMHx includes alcohol abuse and cirrhosis. Test results without any significant abnormalities except for glucose of 117, total bilirubin of 1.4, AST of 65, ALT of 110. Serum alcohol is less than 10. Urinalysis is negative for UTI. Chest XR : No active cardiopulmonary disease is noted. In the ED course the pt was given IV fluids. Pt is tolerating PO intake. Therefore, he will be discharged to home with information about outpatient facilities for alcohol rehab and follow up with his PCP. I discussed all the findings and test results with the patient. All questions were answered to patient satisfaction. There were no further complaints or concerns. He is instructed to return to the ED for any worsening or new symptoms. Pt is hemodynamically stable, alert and oriented x3. - Diagnoses Provider Diagnoses: Alcohol abuse Discharge - Sign-Out/Discharge Documenting (check all that apply): Discharge - discharge to home - Discharge Plan Condition: Stable Disposition: HOME Patient Education Materials: Abuse of Alcohol (ED) Referrals: Rick Aleman MD [Primary Care Provider] - Additional Instructions: Refer to the alcohol abuse treatment resources to find an outpatient facility for rehab. Please follow up with your primary care provider. RETURN TO THE ED FOR ANY NEW OR WORSENING SYMPTOMS. The documentation as recorded by the Austin lutz Angela accurately reflects the service I personally performed and the decisions made by Dru enciso Walter, MD.
== END 2018-02-09 10:20 | disposition home or self-care (01) ==
LOC: ED 08:28
DX: F10.10 Alcohol abuse, uncomplicated (principal); R51 Headache; R11.0 Nausea; R53.1 Weakness; F17.210 Nicotine dependence, cigarettes, uncomplicated
CPT/HCPCS: 36415; 71046; 80053; 80320; 81003; 81015; 83735; 85025; 86140; 96360; 99282; G0480

== ENCOUNTER 2018-04-11 07:48 | Inpatient (IN) | payer OTHER ==
[2018-04-11] MEDS ORDERED: Thiamine IV* 100 MG/ML 2 ML VIAL IM ONE (08:10)
[2018-04-11 08:20] LABS: ABS Basophils 0 10^3/ul (0-0.2); ABS Eosinophils 0 10^3/ul (0-0.6); ABS Lymphocytes 1.3 10^3/ul (1.0-4.8); ABS Monocytes 0.6 10^3/ul (0-0.8); ABS Neutrophils 4.1 10^3/ul (1.5-7.7); ABS Nucleated RBC 0 10^3/ul; Eosinophil % 0.7 % (0-6); Hematocrit 44 % (42-52); Hemoglobin 15.6 g/dl (14.0-18.0); Lymphocyte % 20.7 % (25-47); Mean Corpuscular HGB Conc 36 g/dl (31-36); Mean Corpuscular Hemoglobin 34 pg (27-31); Mean Corpuscular Volume 96 fL (80-94); Mean Platelet Volume 6.8 um3 (7.4-10.4); Nucleated Red Blood Cells % 0.1; Platelet Count 178 10^3/ul (150-450); Red Blood Count 4.57 10^6/ul (4.0-5.4); Red Cell Distribution Width 13 % (10.5-15); White Blood Count 6.1 10^3/ul (3.5-10.8)
[2018-04-11 08:37] LABS: EGFR Non-African American 82.6 (>60)
[2018-04-11] MEDS: Folic Acid TAB* 1 MG PO SCH (08:39)
[2018-04-11] MEDS: Acetaminophen TAB* 325 MG PO PRN (08:39)
[2018-04-11] MEDS ORDERED: Thiamine TAB* 100 MG TAB PO SCH (09:00)
[2018-04-11] MEDS: Multivitamins/Minerals TAB PO SCH (09:00)
[2018-04-11] MEDS ORDERED: LORazepam TAB(*) 1 MG PO SCH ×2 (09:00)
[2018-04-11] MEDS ORDERED: Magnesium Sulfate 1 GM IV* 1 GM/100 ML BAG IV ONE ×2 (14:34→16:00)
[2018-04-11] MEDS ORDERED: Mouth Piece, Nicotine* 1 EACH CARTRIDGE INH ONE (15:00)
[2018-04-11] MEDS ORDERED: LORazepam TAB(*) 1 MG PO ONE (15:06)
[2018-04-11 16:25] LABS: Urine Appearance Clear; Urine Blood Negative (Negative); Urine Color Yellow; Urine Ketones Negative (Negative); Urine Protein Negative (Negative); Urine Specific Gravity 1.021 (1.010-1.030); Urine Urobilinogen Negative (Negative)
[2018-04-11] MEDS: Nicotine Inhaler* 10 MG AMP INH PRN (17:19)
[2018-04-11] MEDS: NS 0.9% 1000 ML* 1,000 ML IV SCH (17:46)
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
[2018-04-11] MEDS: Mirtazapine TAB* 15 MG PO SCH (20:57)
[2018-04-11] MEDS: Gabapentin CAP(*) 300 MG PO SCH (20:58)
[2018-04-11] MEDS: LORazepam TAB(*) 1 MG PO SCH (20:58)
[2018-04-12] MEDS: NS 0.9% 1000 ML* 1,000 ML IV SCH (00:52)
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
[2018-04-12] MEDS: hydrOXYzine HCL TAB* 25 MG PO PRN (04:09)
[2018-04-12] MEDS: Omeprazole CAP* 20 MG PO SCH (05:03)
[2018-04-12] MEDS: Nicotine Inhaler* 10 MG AMP INH PRN ×4 (06:22→20:25)
[2018-04-12 06:31] LABS: EGFR Non-African American 99.3 (>60)
[2018-04-12 06:47] LABS: ABS Basophils 0 10^3/ul (0-0.2); ABS Eosinophils 0.1 10^3/ul (0-0.6); ABS Lymphocytes 0.9 10^3/ul (1.0-4.8); ABS Monocytes 0.4 10^3/ul (0-0.8); ABS Neutrophils 1.7 10^3/ul (1.5-7.7); ABS Nucleated RBC 0 10^3/ul; Eosinophil % 2.6 % (0-6); Hematocrit 42 % (42-52); Hemoglobin 14.9 g/dl (14.0-18.0); Lymphocyte % 30.4 % (25-47); Mean Corpuscular HGB Conc 35 g/dl (31-36); Mean Corpuscular Hemoglobin 34 pg (27-31); Mean Corpuscular Volume 97 fL (80-94); Mean Platelet Volume 7.4 um3 (7.4-10.4); Nucleated Red Blood Cells % 0.3; Platelet Count 138 10^3/ul (150-450); Red Blood Count 4.36 10^6/ul (4.0-5.4); Red Cell Distribution Width 13 % (10.5-15); White Blood Count 3.1 10^3/ul (3.5-10.8)
[2018-04-12] MEDS: LORazepam TAB(*) 1 MG PO SCH ×4 (07:31→21:18)
[2018-04-12] MEDS: Folic Acid TAB* 1 MG PO SCH ×2 (07:31→09:01)
[2018-04-12] MEDS: Multivitamins/Minerals TAB PO SCH ×2 (07:31→09:01)
[2018-04-12] MEDS: BuPROPion XL* 150 MG TAB.XL PO SCH (07:31)
[2018-04-12] MEDS: Gabapentin CAP(*) 300 MG PO SCH ×3 (07:31→20:21)
[2018-04-12] MEDS: Thiamine TAB* 100 MG TAB PO SCH (07:31)
--- NOTE | 2018-04-12 07:57 | PN ---
Subjective Date of Service: 04/12/18 Interval History: Still tremulous, wants to shower. requests to see social and human services assistant to set up outpatient rehab f/u Objective Active Medications: Acetaminophen (Tylenol Tab*) 650 mg PO Q4H PRN PRN Reason: PAIN Last Admin: 04/11/18 08:39 Dose: 650 mg Bupropion HCl (Wellbutrin Xl *) 150 mg PO DAILY FREDDIE PRN Reason: Protocol Last Admin: 04/12/18 07:31 Dose: 150 mg Folic Acid (Folvite Tab*) 1 mg PO DAILY [facility] Last Admin: 04/11/18 08:39 Dose: 1 mg Folic Acid (Folvite Tab*) 1 mg PO DAILY [facility] Last Admin: 04/12/18 07:31 Dose: 1 mg Gabapentin (Neurontin Cap(*)) 300 mg PO TID [facility] Last Admin: 04/12/18 07:31 Dose: 300 mg Hydroxyzine HCl (Atarax Tab*) 25 mg PO Q6H PRN PRN Reason: AGITATION/ANXIETY/INSOMNIA Last Admin: 04/12/18 04:09 Dose: 25 mg Sodium Chloride (Ns 0.9% 1000 Ml*) 1,000 mls @ 150 mls/hr IV PER RATE FREDDIE Stop: 04/12/18 21:24 Last Admin: 04/12/18 00:52 Dose: 150 mls/hr Lorazepam (Ativan Tab(*)) 1 mg PO TID [facility] Last Admin: 04/12/18 07:31 Dose: 1 mg Lorazepam (Ativan Tab(*)) 0 - 6 mg PO .PER [facility] PROTOCOL [facility] PRN Reason: Protocol Last Admin: 04/12/18 07:31 Dose: 1 mg Mirtazapine (Remeron Tab*) 30 mg PO BEDTIME [facility] Last Admin: 04/11/18 20:57 Dose: 30 mg Multivitamins/Minerals (Theragran/Minerals Tab*) 1 tab PO DAILY [facility] Last Admin: 04/11/18 09:00 Dose: Not Given Multivitamins/Minerals (Theragran/Minerals Tab*) 1 tab PO DAILY [facility] Last Admin: 04/12/18 07:31 Dose: 1 tab Nicotine (Nicotine Inhaler*) 10 mg INH Q2H PRN PRN Reason: CRAVING Last Admin: 04/12/18 06:22 Dose: 10 mg Omeprazole (Prilosec Cap*) 20 mg PO 0600 [facility] Last Admin: 04/12/18 05:03 Dose: 20 mg Thiamine HCl (Vitamin B-1 Tab*) 100 mg PO DAILY [facility] Last Admin: 04/12/18 07:31 Dose: 100 mg Vital Signs - 8 hr 04/12/18 04/12/18 04/12/18 00:57 02:56 05:04 Pulse Rate 71 73 78 Respiratory 16 16 16 Rate Blood Pressure 134/80 145/86 144/83 (mmHg) O2 Sat by Pulse 97 100 98 Oximetry 04/12/18 04/12/18 04/12/18 07:00 07:02 07:31 Pulse Rate 80 Respiratory 18 16 18 Rate Blood Pressure 143/86 (mmHg) O2 Sat by Pulse 97 Oximetry Oxygen Devices in Use Now: None Appearance: 52 yo m in nAD, AAOx3 Eyes: No Scleral Icterus, PERRLA Ears/Nose/Mouth/Throat: NL Teeth, Lips, Gums, Mucous Membranes Moist Neck: NL Appearance and Movements; NL JVP, Trachea Midline Respiratory: Symmetrical Chest Expansion and Respiratory Effort, Clear to Auscultation Cardiovascular: NL Sounds; No Murmurs; No JVD Abdominal: NL Sounds; No Tenderness; No Distention Lymphatic: No Cervical Adenopathy Extremities: No Edema, No Clubbing, Cyanosis Skin: No Rash or Ulcers, No Nodules or Sclerosis Neurological: Alert and Oriented x 3, NL Muscle Strength and Tone, - - tremor in b/l hands Result Diagrams: 04/12/18 06:16 04/12/18 05:48 Microbiology and Other Data: Microbiology 04/11/18 17:40 Nasal Screen MRSA (PCR)(KASSI) - Final Nasal Mrsa Not Detected Assess/Plan/Problems-Billing Assessment: 52 yo M with h/o ETOH presented with SI, intoxicated, then withdrawing - Patient Problems (1) Alcohol-induced mood disorder Comment: Denies SI today psychiatry consult pending cont 1:1 obs (2) Alcohol withdrawal Comment: cont WAM protocol will taper down Ativan FREDDIE cont Thiamine/Folate (3) Alcoholic hepatitis Comment: - Chronic, bili up today, will follow in AM (4) DVT prophylaxis Comment: ambulatory Status and Disposition: inpatient
[2018-04-12] MEDS: LORazepam TAB(*) 0.5 MG PO SCH ×3 (09:01→20:20)
[2018-04-12] MEDS: Hydrocortisone 1% CREAM* 30 GM TUBE TOPICAL SCH ×2 (14:44→20:23)
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
[2018-04-12] MEDS: Acetaminophen TAB* 325 MG PO PRN ×2 (15:34→21:18)
[2018-04-12] MEDS: Mirtazapine TAB* 15 MG PO SCH (20:22)
[2018-04-13] MEDS: hydrOXYzine HCL TAB* 25 MG PO PRN (01:33)
[2018-04-13] MEDS: Nicotine Inhaler* 10 MG AMP INH PRN ×2 (04:21→08:40)
[2018-04-13] MEDS: Omeprazole CAP* 20 MG PO SCH (05:20)
[2018-04-13 06:37] LABS: EGFR Non-African American 91.4 (>60)
[2018-04-13] MEDS: Folic Acid TAB* 1 MG PO SCH ×2 (07:16→08:39)
[2018-04-13] MEDS: Multivitamins/Minerals TAB PO SCH ×2 (07:17→08:39)
[2018-04-13] MEDS: Gabapentin CAP(*) 300 MG PO SCH (08:39)
[2018-04-13] MEDS: BuPROPion XL* 150 MG TAB.XL PO SCH (08:39)
[2018-04-13] MEDS: Thiamine TAB* 100 MG TAB PO SCH (08:39)
[2018-04-13] MEDS: LORazepam TAB(*) 1 MG PO SCH (08:40)
[2018-04-13] MEDS: Hydrocortisone 1% CREAM* 30 GM TUBE TOPICAL SCH (08:40)
[2018-04-13] MEDS: LORazepam TAB(*) 0.5 MG PO SCH (08:40)
[2018-04-13 09:45] VITALS: BP 132/77
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
== END 2018-04-13 10:15 | disposition home or self-care (01) | DRG 775 ==
LOC: ED 07:48 → MED 14:17
PROVIDERS: ADMIT Internal Medicine; ATTEND Internal Medicine
DX: F10.229 Alcohol dependence with intoxication, unspecified (principal); R45.851 Suicidal ideations; M62.82 Rhabdomyolysis; F10.239 Alcohol dependence with withdrawal, unspecified; R45.850 Homicidal ideations; R56.9 Unspecified convulsions; F32.9 Major depressive disorder, single episode, unspecified; F41.9 Anxiety disorder, unspecified; G43.909 Migraine, unspecified, not intractable, without status migrainosus; M54.9 Dorsalgia, unspecified; F10.24 Alcohol dependence with alcohol-induced mood disorder; F12.90 Cannabis use, unspecified, uncomplicated; F17.210 Nicotine dependence, cigarettes, uncomplicated; K21.9 Gastro-esophageal reflux disease without esophagitis; J30.2 Other seasonal allergic rhinitis; M19.90 Unspecified osteoarthritis, unspecified site; M10.9 Gout, unspecified; F10.221 Alcohol dependence with intoxication delirium; Y90.5 Blood alcohol level of 100-119 mg/100 ml; G89.29 Other chronic pain; K70.10 Alcoholic hepatitis without ascites; Z56.0 Unemployment, unspecified; Z82.49 Family history of ischemic heart disease and other diseases of the circulatory system; Z88.8 Allergy status to other drugs, medicaments and biological substances; Z87.01 Personal history of pneumonia (recurrent); Z87.11 Personal history of peptic ulcer disease; Z86.19 Personal history of other infectious and parasitic diseases; Z86.14 Personal history of Methicillin resistant Staphylococcus aureus infection; Z81.1 Family history of alcohol abuse and dependence; Z80.0 Family history of malignant neoplasm of digestive organs; Z91.5 Personal history of self-harm; Z91.14 Patient's other noncompliance with medication regimen; Z91.19 Patient's noncompliance with other medical treatment and regimen
CPT/HCPCS: 36415; 80053; 80307; 80320; 80329; 81003; 82150; 82550; 83605; 83690; 83735; 84443; 84484; 85025; 87641; 93005; 99284; A9270-GY; G0480; J3411; J3475

== ENCOUNTER 2018-05-19 07:40 | Emergency (ER) | payer OTHER ==
--- NOTE | 2018-05-19 08:24 | ED ---
Psychiatric Complaint - HPI Summary HPI Summary: This patient is a 52 year old M presenting to [facility] with a chief complaint of depression for 1 week. He states that his last drink was at 2200 05/18/18, and he want to detox. He endorses constant pain in his liver for the past couple of weeks, with EtOH being the only aggravating factor. He also endorses and falls and syncope episodes related to his alcoholism. PMHx ulcer, takes his ulcer medications off and on. Pt was in the ED 1 month ago for detox, similar sx. He endorses drinking every day for the past month, and that the last day he hasnt had any EtOH was 1 month ago. He notes that in 2013 he relapsed, and started drinking every day. Last year pt went a month without drinking. Last month pt was in hospital for 2 days, went without drinking for a few days after discharge. He endorses drinking 20 drinks a day. Pt endorses using marijuana a week ago. Denies opiate use. - History Of Current Complaint Hx Obtained From: Patient Onset/Duration: Gradual Onset, Lasting Weeks Timing: Constant Severity Initially: Mild Severity Currently: Mild Character: Depressed Aggravating Factor(s): Medication Non-compliance - ulcer medication off and on, Alcohol Use Alleviating Factor(s): Nothing Related History: Positive For: Prior Psychiatric Issues, Admissions Related To Substance Abuse Has Suicidal: Reports: Thoughts Ingestion History: Type/Name Of Drug - alcohol, Amount Ingested - 20 drinks a day, Approximate Time Of Ingestion - 2200 - Allergies/Home Medications Allergies/Adverse Reactions: Allergies Allergy/AdvReac Type Severity Reaction Status Date / Time topiramate AdvReac Muscle Ache Verified 05/19/18 07:50 PMH/Surg Hx/FS Hx/Imm Hx Endocrine/Hematology History: Denies: Hx Blood Transfusions, Hx Thyroid Disease Respiratory History: Reports: Hx Pneumonia, Hx Seasonal Allergies GI History: Reports: Hx Cirrhosis, Hx Gastroesophageal Reflux Disease, Hx Ulcer Musculoskeletal History: Reports: Hx Arthritis, Hx Back Problems, Hx Gout, Other Musculoskeletal History - b/l leg pain Sensory History: Denies: Hx Cataracts, Hx Contacts or Glasses, Hx Deafness, Hx Hearing Aid Opthamlomology History: Denies: Hx Cataracts, Hx Contacts or Glasses EENT History: Denies: Hx Deafness Neurological History: Reports: Hx Headaches, Hx Migraine, Hx Seizures Denies: Hx Spinal Cord Injury Psychiatric History: Reports: Hx Anxiety, Hx Depression, Hx Inpatient Treatment , Hx Community Mental Health Tx, Hx Suicide Attempt, Hx Substance Abuse - alcohol primarily, also marijuana, and opiates Denies: Hx Eating Disorder, Hx Post Traumatic Stress Disorder, Hx of Violent Episodes Against Others - Surgical History Surgery Procedure, Year, and Place: none - Immunization History Date of Tetanus Vaccine: PT STATES UNSURE Date of Influenza Vaccine: NONE Immunizations Up to Date: Yes Infectious Disease History: No Infectious Disease History: Reports: Hx Hepatitis - Alcoholic hepatitis, Hx of Known/Suspected MRSA Denies: Hx Clostridium Difficile, Traveled Outside the [place] in Last 30 Days - Family History Known Family History: Positive: Cardiac Disease - [place] (father at age 54), Other - EtOH abuse, bipolar disorder, colon ca - Social History Lives: Alone Alcohol Use: Daily Alcohol Amount: 10-20 drinks per day Hx Substance Use: Yes Substance Use Type: Reports: Marijuana Substance Use Comment - Amount & Last Used: 10/01/16 Hx Tobacco Use: Yes Smoking Status (MU): Heavy Every Day Tobacco Smoker Type: Cigarettes Amount Used/How Often: Patient has smoked cigarette within the last 30 days. Length of Time of Smoking/Using Tobacco: 30 years Have You Smoked in the Last Year: Yes Review of Systems Negative: Fever Positive: flank pain - right side "liver" pain Positive: Myalgia - right side "liver" pain Positive: Depressed All Other Systems Reviewed And Are Negative: Yes Physical Exam - Summary Physical Exam Summary: Appearance: The patient is well-nourished in no acute distress and in no acute pain. Not tremulous. Skin: The skin is warm and dry and skin color reflects adequate perfusion. HEENT: The head is normocephalic and atraumatic. The pupils are equal and reactive. The conjunctivae are clear and without drainage. Nares are patent and without drainage. Mouth reveals moist mucous membranes and the throat is without erythema and exudate. The external ears are intact. The ear canals are patent and without drainage. The tympanic membranes are intact. Neck: The neck is supple with full range of motion and non-tender. There are no carotid bruits. There is no neck vein distension. Respiratory: Chest is non-tender. Lungs are clear to auscultation and breath sounds are symmetrical and equal. Cardiovascular: Heart is regular rate and rhythm. There is no murmur or rub auscultated. There is no peripheral edema and pulses are symmetrical and equal. Abdomen: The abdomen is soft and non-tender. There are normal bowel sounds heard in all four quadrants and there is no organomegaly palpated. Musculoskeletal: There is no back tenderness noted. Extremities are non-tender with full range of motion. There is good capillary refill. There is no peripheral edema or calf tenderness elicited. Neurological: Patient is alert and oriented to person, place and time. The patient has symmetrical motor strength in all four extremities. Cranial nerves are grossly intact. Deep tendon reflexes are symmetrical and equal in all four extremities. Psychiatric: The patient has an appropriate affect and does not exhibit any anxiety or depression. Triage Information Reviewed: Yes Vital Signs On Initial Exam: Initial Vitals Temp Pulse Resp BP Pulse Ox 97.5 F 96 17 154/79 98 05/19/18 07:44 05/19/18 07:44 05/19/18 07:44 05/19/18 07:44 05/19/18 07:44 Vital Signs Reviewed: Yes Diagnostics - Vital Signs Vital Signs Temp Pulse Resp BP Pulse Ox 05/19/18 07:44 97.5 F 96 17 154/79 98 - Laboratory Result Diagrams: 05/19/18 08:27 05/19/18 08:27 Lab Statement: Any lab studies that have been ordered have been reviewed, and results considered in the medical decision making process. Course/Dx - Course Course Of Treatment: Mr. Lord presented to the emergency department wanting to detox off of alcohol. He is a big drinker and has been through detox several times and is aware that he gets very symptomatic. He also admits to some depression because of his drinking and not being able to stop. He denies any SI or HI. The last time he went through detox was about a month ago when he was sober for about a week. He underwent wham protocol in the hospital and did well in just a couple days. He was a bit intoxicated when he arrived his initial blood alcohol is 141 at 8:30 in the morning. At 10:00 when he was clinically sober he changed his mind and decided that he wanted to work out an outpatient rehabilitation. I'm no reason to keep him against his will and he is asymptomatic. A wam score was done on him while he was here and he scored a 9 however that was mostly on subjective features. He is not tachycardic he has minimal if any tremor. - Differential Dx/Clinical Impression Provider Diagnosis: Alcohol abuse Discharge - Sign-Out/Discharge Documenting (check all that apply): Patient Departure - discharge - Discharge Plan Condition: Stable Disposition: HOME Patient Education Materials: Abuse of Alcohol (ED) Referrals: Rick Aleman MD [Primary Care Provider] - 3 Days Additional Instructions: RETURN TO THE EMERGENCY DEPARTMENT FOR ANY CHANGING OR WORSENING SYMPTOMS. - Billing Disposition and Condition Condition: STABLE Disposition: Home
[2018-05-19 08:47] LABS: ABS Basophils 0 10^3/ul (0-0.2); ABS Eosinophils 0 10^3/ul (0-0.6); ABS Lymphocytes 1.2 10^3/ul (1.0-4.8); ABS Monocytes 0.4 10^3/ul (0-0.8); ABS Neutrophils 2.8 10^3/ul (1.5-7.7); ABS Nucleated RBC 0 10^3/ul; Eosinophil % 0.6 % (0-6); Hematocrit 47 % (42-52); Hemoglobin 16.7 g/dl (14.0-18.0); Lymphocyte % 26.6 % (25-47); Mean Corpuscular HGB Conc 36 g/dl (31-36); Mean Corpuscular Hemoglobin 34 pg (27-31); Mean Corpuscular Volume 96 fL (80-94); Mean Platelet Volume 6.8 um3 (7.4-10.4); Nucleated Red Blood Cells % 0.2; Platelet Count 170 10^3/ul (150-450); Red Blood Count 4.86 10^6/ul (4.00-5.40); Red Cell Distribution Width 13 % (10.5-15); White Blood Count 4.4 10^3/ul (3.5-10.8)
[2018-05-19 09:02] LABS: Urine Appearance Cloudy; Urine Blood Negative (Negative); Urine Color Yellow; Urine Ketones 1+ (Negative); Urine Protein 1+(30 mg/dL) (Negative); Urine Red Blood Cell Absent (Absent); Urine Specific Gravity 1.021 (1.010-1.030); Urine Urobilinogen Negative (Negative); Urine White Blood Cell Absent (Absent)
[2018-05-19 09:03] LABS: EGFR Non-African American 80.7 (>60)
[2018-05-19 11:03] VITALS: BP 175/88
== END 2018-05-19 11:02 | disposition home or self-care (01) ==
LOC: ED 07:40
DX: F10.10 Alcohol abuse, uncomplicated (principal); F17.210 Nicotine dependence, cigarettes, uncomplicated; Z88.8 Allergy status to other drugs, medicaments and biological substances
CPT/HCPCS: 36415; 80053; 80307; 80320; 80329; 81003; 81015; 84443; 85025; 99282; G0480

== ENCOUNTER 2018-07-08 19:28 | Emergency (ER) | payer OTHER ==
--- NOTE | 2018-07-08 20:20 | ED ---
Substance Abuse/Use - HPI Summary HPI Summary: The pt is a 52 y/o male BIBA to [facility] c/o of ETOH use since 09:00 today. As per EMS records, the pt was found in middle of a room, smelling of ETOH. The pt reports alcohol consumption and marijuana use. He also notes chronic back pain, difficulty moving and body aches but denies SI, injury and trauma. - History Of Current Complaint Chief Complaint: EDSubstanceAbuse Stated Complaint: ETOH Time Seen by Provider: 07/08/18 20:11 Hx Obtained From: Patient, EMS Onset/Duration of Drug/ETOH Abuse: Hours - From 09:00 today Ingestion History: Type/Name Of Drug - ETOH, marijuana Overdose Characteristics: Oral Associated Signs And Symptoms: Negative - SI, trauma and injury, Other: - chronic back pain, difficulty moving and body aches - Allergies/Home Medications Allergies/Adverse Reactions: Allergies Allergy/AdvReac Type Severity Reaction Status Date / Time topiramate AdvReac Muscle Ache Verified 07/08/18 20:03 PMH/Surg Hx/FS Hx/Imm Hx Previously Healthy: No Endocrine/Hematology History: Denies: Hx Blood Transfusions, Hx Thyroid Disease Respiratory History: Reports: Hx Pneumonia, Hx Seasonal Allergies GI History: Reports: Hx Cirrhosis, Hx Gastroesophageal Reflux Disease, Hx Ulcer Musculoskeletal History: Reports: Hx Arthritis, Hx Back Problems, Hx Gout, Other Musculoskeletal History - b/l leg pain Sensory History: Denies: Hx Cataracts, Hx Contacts or Glasses, Hx Deafness, Hx Hearing Aid Opthamlomology History: Denies: Hx Cataracts, Hx Contacts or Glasses Neurological History: Reports: Hx Headaches, Hx Migraine, Hx Seizures Denies: Hx Spinal Cord Injury Psychiatric History: Reports: Hx Anxiety, Hx Depression, Hx Inpatient Treatment , Hx Community Mental Health Tx, Hx Suicide Attempt, Hx Substance Abuse - alcohol primarily, also marijuana, and opiates Denies: Hx Eating Disorder, Hx Post Traumatic Stress Disorder, Hx of Violent Episodes Against Others - Cancer History Cancer Type, Location and Year: None reported - Surgical History Surgery Procedure, Year, and Place: none - Immunization History Date of Tetanus Vaccine: PT STATES UNSURE Date of Influenza Vaccine: NONE Infectious Disease History: Yes Infectious Disease History: Reports: Hx Hepatitis - Alcoholic hepatitis, Hx of Known/Suspected MRSA Denies: Hx Clostridium Difficile, Traveled Outside the [place] in Last 30 Days - Family History Known Family History: Positive: Cardiac Disease - [place] (father at age 54), Other - EtOH abuse, bipolar disorder, colon ca - Social History Occupation: Unemployed Lives: Alone Alcohol Use: Daily Alcohol Amount: 10-20 drinks per day Hx Substance Use: Yes Substance Use Type: Reports: Marijuana Substance Use Comment - Amount & Last Used: 10/01/16 Hx Tobacco Use: Yes Smoking Status (MU): Heavy Every Day Tobacco Smoker Type: Cigarettes Amount Used/How Often: Patient has smoked cigarette within the last 30 days. Length of Time of Smoking/Using Tobacco: 30 years Have You Smoked in the Last Year: Yes Review of Systems Constitutional: Negative - Injury, trauma Positive: Other - Positive: EtOH abuse , body aches Positive: Other - Positive: chronic back pain, difficulty moving Psychological: Other - Negative: SI All Other Systems Reviewed And Are Negative: Yes Physical Exam - Summary Physical Exam Summary: Appearance: Well appearing, Skin: warm, dry, reflects adequate perfusion Head/face: normal Eyes: EOMI, LAYNE ENT: normal Neck: supple, non-tender Respiratory: CTA, breath sounds present Cardiovascular: RRR, pulses symmetrical Abdomen: non-tender, soft Bowel: present Musculoskeletal: normal, strength/ROM intact Neuro: normal, sensory motor intact, A&Ox3 Triage Information Reviewed: Yes Vital Signs On Initial Exam: Initial Vitals Temp Pulse Resp BP Pulse Ox 98.8 F 84 16 124/68 93 07/08/18 19:45 07/08/18 19:45 07/08/18 19:45 07/08/18 19:45 07/08/18 19:45 Vital Signs Reviewed: Yes Diagnostics - Vital Signs Vital Signs Temp Pulse Resp BP Pulse Ox 07/08/18 19:55 85 124/68 92 07/08/18 19:54 86 92 07/08/18 19:45 98.8 F 84 16 124/68 93 - Laboratory Result Diagrams: 07/08/18 21:06 07/08/18 21:06 Lab Statement: Any lab studies that have been ordered have been reviewed, and results considered in the medical decision making process. Course/Dx - Course Course Of Treatment: A 52 year-old M presents to the ED with a CC of EtOH abuse since 09:00 today. As per EMS records, the pt was found in middle of a room, smelling of ETOH. The pt reports alcohol consumption and marijuana use. He also notes chronic back pain, difficulty moving and body aches but denies SI, injury and trauma. A physical exam is unremarkable. The patient will be signed out to Dr. Isaias Gomez MD at 22:00 with a final Dx of alcohol intoxication.The pt is agreeable with this plan. Allergies noted. - Diagnoses Differential Diagnosis/HQI/PQRI: Positive: Alcohol Abuse Provider Diagnoses: Alcohol intoxication Discharge - Sign-Out/Discharge Documenting (check all that apply): Sign-Out Patient Signing out patient TO: Isaias Hutchins - 22:00 - Discharge Plan Condition: Improved Disposition: HOME Patient Education Materials: Alcohol Intoxication (ED) Referrals: Rick Aleman MD [Primary Care Provider] - - Billing Disposition and Condition Condition: IMPROVED Disposition: Home - Attestation Statements Document Initiated by Scribe: Yes Documenting Scribe: Lilly Stephens Provider For Whom Lilian is Documenting (Include Credential): Dr. Rd Montgomery MD Scribe Attestation: Lilly Byrd , scribed for Dr. Rd Montgomery MD on 07/09/18 at 0740. Scribe Documentation Reviewed: Yes Provider Attestation: The documentation as recorded by the Lilly lutz accurately reflects the service I personally performed and the decisions made by , Dr. Rd Montgomery MD
[2018-07-08 21:18] LABS: ABS Basophils 0.1 10^3/ul (0-0.2); ABS Eosinophils 0.1 10^3/ul (0-0.6); ABS Lymphocytes 2.4 10^3/ul (1.0-4.8); ABS Monocytes 0.6 10^3/ul (0-0.8); ABS Neutrophils 6.2 10^3/ul (1.5-7.7); ABS Nucleated RBC 0 10^3/ul; Eosinophil % 1.1 % (0-6); Hematocrit 43 % (42-52); Hemoglobin 15.3 g/dl (14.0-18.0); Lymphocyte % 25.8 % (25-47); Mean Corpuscular HGB Conc 35 g/dl (31-36); Mean Corpuscular Hemoglobin 34 pg (27-31); Mean Corpuscular Volume 96 fL (80-94); Mean Platelet Volume 7.1 um3 (7.4-10.4); Nucleated Red Blood Cells % 0.1; Platelet Count 151 10^3/ul (150-450); Red Blood Count 4.53 10^6/ul (4.00-5.40); Red Cell Distribution Width 13 % (10.5-15); White Blood Count 9.5 10^3/ul (3.5-10.8)
[2018-07-08 21:38] LABS: EGFR Non-African American 87.9 (>60)
--- NOTE | 2018-07-08 23:35 | ED ---
Progress - Progress Note Progress Note: Patient was signed out from Dr. Montgomery to Dr. Hutchins upon provider shift change pending disposition and discharge. Course/Dx - Course Course Of Treatment: A 52 year-old M presents to the ED with a CC of EtOH abuse since 09:00 today. As per EMS records, the pt was found in middle of a room, smelling of ETOH. The pt reports alcohol consumption and marijuana use. He also notes chronic back pain, difficulty moving and body aches but denies SI, injury and trauma. A physical exam is unremarkable. The patient will be signed out to Dr. Isaias Gomez MD at 22:00 with a final Dx of alcohol intoxication. The pt is awaiting disposition. The pt is agreeable with this plan. Allergies noted. - Diagnoses Provider Diagnoses: Alcohol intoxication Discharge - Sign-Out/Discharge Documenting (check all that apply): Patient Departure - Discharge Plan Condition: Improved Disposition: HOME Patient Education Materials: Alcohol Intoxication (ED) Referrals: Rick Aleman MD [Primary Care Provider] - - Attestation Statements Document Initiated by Scribe: Yes Documenting Scribe: Thelma Gaona Provider For Whom Scribe is Documenting (Include Credential): Isaias Hutchins MD Scribe Attestation: Thelma Byrd, scribed for Isaias Hutchins MD on 07/09/18 at 0157.
[2018-07-08 23:56] LABS: Urine Appearance Clear; Urine Blood Negative (Negative); Urine Color Straw; Urine Ketones Negative (Negative); Urine Protein Negative (Negative); Urine Specific Gravity 1.002 (1.010-1.030); Urine Urobilinogen Negative (Negative)
[2018-07-09 02:04] VITALS: BP 135/73
== END 2018-07-09 02:03 | disposition home or self-care (01) ==
LOC: ED 19:28
DX: F10.129 Alcohol abuse with intoxication, unspecified (principal); F12.90 Cannabis use, unspecified, uncomplicated; Z88.8 Allergy status to other drugs, medicaments and biological substances; F17.210 Nicotine dependence, cigarettes, uncomplicated
CPT/HCPCS: 36415; 80053; 80307; 80320; 80329; 81003; 84443; 85025; 99285; G0480

== ENCOUNTER 2018-09-27 07:30 | Emergency (ER) | payer OTHER ==
--- NOTE | 2018-09-27 08:07 | ED ---
Substance Abuse/Use - HPI Summary HPI Summary: This pt is a 52 y/o male presenting to [facility] c/o alcohol withdrawal. Pt reports he has been drinking alcohol every day for almost 4 years. Pt notes the last time he drank alcohol was yesterday at about 13:00. He denies nausea, vomiting, chest pain, SOB, tremors. Pt is requesting help to get through alcohol withdrawal. The last time pt was on a detox program was 6 months ago. He states he knows how to get back into a detox program again. Pt has an appointment with his PCP today. - History Of Current Complaint Chief Complaint: EDDetoxRequest Stated Complaint: ALCOHOL WITHDRAWL Time Seen by Provider: 09/27/18 07:57 Hx Obtained From: Patient Onset/Duration of Drug/ETOH Abuse: Weeks Ingestion History: Type/Name Of Drug - Alcohol, Approximate Time Of Ingestion - last time was yesterday at 13:00 Overdose Characteristics: Oral Timing Of Abuse: Daily Severity Currently: Mild Aggravating Factor(s): Nothing Alleviating Factor(s): Nothing Associated Signs And Symptoms: Negative Related Hx: Drug/Alcohol Last Used @ - alcohol last used was yesterday afternoon - Allergies/Home Medications Allergies/Adverse Reactions: Allergies Allergy/AdvReac Type Severity Reaction Status Date / Time topiramate AdvReac Muscle Ache Verified 09/27/18 07:51 PMH/Surg Hx/FS Hx/Imm Hx Endocrine/Hematology History: Denies: Hx Blood Transfusions, Hx Thyroid Disease Respiratory History: Reports: Hx Pneumonia, Hx Seasonal Allergies GI History: Reports: Hx Cirrhosis, Hx Gastroesophageal Reflux Disease, Hx Ulcer Musculoskeletal History: Reports: Hx Arthritis, Hx Back Problems, Hx Gout, Other Musculoskeletal History - b/l leg pain Sensory History: Denies: Hx Cataracts, Hx Contacts or Glasses, Hx Deafness, Hx Hearing Aid Opthamlomology History: Denies: Hx Cataracts, Hx Contacts or Glasses Neurological History: Reports: Hx Headaches, Hx Migraine, Hx Seizures Denies: Hx Spinal Cord Injury Psychiatric History: Reports: Hx Anxiety, Hx Depression, Hx Inpatient Treatment , Hx Community Mental Health Tx, Hx Suicide Attempt, Hx Substance Abuse - alcohol primarily, also marijuana, and opiates Denies: Hx Eating Disorder, Hx Post Traumatic Stress Disorder, Hx of Violent Episodes Against Others - Cancer History Cancer Type, Location and Year: None reported - Surgical History Surgery Procedure, Year, and Place: none - Immunization History Date of Tetanus Vaccine: PT STATES UNSURE Date of Influenza Vaccine: NONE Infectious Disease History: No Infectious Disease History: Reports: Hx Hepatitis - Alcoholic hepatitis, Hx of Known/Suspected MRSA Denies: Hx Clostridium Difficile, Traveled Outside the [place] in Last 30 Days - Family History Known Family History: Positive: Cardiac Disease - [place] (father at age 54), Other - EtOH abuse, bipolar disorder, colon ca - Social History Alcohol Use: Daily Alcohol Amount: 10-20 drinks per day Hx Substance Use: Yes Substance Use Type: Reports: Marijuana Substance Use Comment - Amount & Last Used: 10/01/16 Hx Tobacco Use: Yes Smoking Status (MU): Heavy Every Day Tobacco Smoker Type: Cigarettes Amount Used/How Often: Patient has smoked cigarette within the last 30 days. Length of Time of Smoking/Using Tobacco: 30 years Have You Smoked in the Last Year: Yes Review of Systems Negative: Fever, Chills Negative: Chest Pain Negative: Shortness Of Breath Negative: Vomiting, Nausea Neurological: Other - NEG: tremors All Other Systems Reviewed And Are Negative: Yes Physical Exam - Summary Physical Exam Summary: VITAL SIGNS: Reviewed. GENERAL: Patient is a well-developed and nourished male who is lying comfortable in the stretcher. Patient is not in any acute respiratory distress. HEAD AND FACE: No signs of trauma. No ecchymosis, hematomas or skull depressions. No sinus tenderness. EYES: PERRLA, EOMI x 2, No injected conjunctiva, no nystagmus. EARS: Hearing grossly intact. Ear canals and tympanic membranes are within normal limits. MOUTH: Oropharynx within normal limits. NECK: Supple, trachea is midline, no adenopathy, no JVD, no carotid bruit, no c- spine tenderness, neck with full ROM. CHEST: Symmetric, no tenderness at palpation LUNGS: Clear to auscultation bilaterally. No wheezing or crackles. CVS: Regular rate and rhythm, S1 and S2 present, no murmurs or gallops appreciated. ABDOMEN: Soft, non-tender. No signs of distention. No rebound no guarding, and no masses palpated. Bowel sounds are normal. EXTREMITIES: FROM in all major joints, no edema, no cyanosis or clubbing. NEURO: Alert and oriented x 3. No acute neurological deficits. Speech is normal and follows commands. No asterixis. SKIN: Dry and warm Triage Information Reviewed: Yes Vital Signs On Initial Exam: Initial Vitals Temp Pulse Resp BP Pulse Ox 97.2 F 81 18 149/80 98 09/27/18 07:48 09/27/18 07:48 09/27/18 07:48 09/27/18 07:48 09/27/18 07:48 Vital Signs Reviewed: Yes Diagnostics - Vital Signs Vital Signs Temp Pulse Resp BP Pulse Ox 09/27/18 07:48 97.2 F 81 18 149/80 98 - Laboratory Lab Statement: Any lab studies that have been ordered have been reviewed, and results considered in the medical decision making process. Course/Dx - Course Assessment/Plan: This pt is a 52 y/o male presenting to [facility] c/o alcohol withdrawal. Pt reports he has been drinking alcohol every day for almost 4 years. Pt notes the last time he drank alcohol was yesterday at about 13:00. He denies nausea, vomiting, chest pain, SOB, tremors. Pt is requesting help to get through alcohol withdrawal. The last time pt was on a detox program was 6 months ago. The patients vital signs are within normal limits, the patient does not have any asterixis, he does not have any signs of alcohol withdrawal. Therefore since the patient has some anxiety the patient was given Ativan by mouth and he will be discharged home. He reports that he knows how to get in touch with an alcohol detox program counselor. Patient was given alcohol detox programs and he will be discharged home with follow-up with PCP. Patient was instructed if he develops any other symptoms or symptoms of alcohol withdrawal he should return to admission for further workup and management. Patient understands and agrees, he is hemodynamically stable, alert and oriented 3. - Diagnoses Differential Diagnosis/HQI/PQRI: Positive: Alcohol Abuse, Alcohol Withdrawal, Anxiety Provider Diagnoses: Alcoholism Discharge - Sign-Out/Discharge Documenting (check all that apply): Patient Departure - Discharge home - Discharge Plan Condition: Stable Disposition: HOME Patient Education Materials: Abuse of Alcohol (ED) Referrals: Rick Aleman MD [Primary Care Provider] - Additional Instructions: Please refer to local resources for a detox program. Follow up with your PCP in 2-3 days. RETURN TO EMERGENCY DEPARTMENT FOR ANY NEW OR WORSENING SYMPTOMS. - Billing Disposition and Condition Condition: STABLE Disposition: Home - Attestation Statements Document Initiated by Lilian: Yes Documenting Scribe: Jaycee Avila Provider For Whom Scribe is Documenting (Include Credential): Rick Gonsales MD Scribe Attestation: I, Jaycee Avila, scribed for Rick Gonsales MD on 09/27/18 at 1804. Scribe Documentation Reviewed: Yes Provider Attestation: The documentation as recorded by the chepeibeJaycee accurately reflects the service I personally performed and the decisions made by me, Rick Gonsales MD
[2018-09-27] MEDS ORDERED: LORazepam TAB(*) 1 MG PO ONE (08:08)
[2018-09-27 08:39] VITALS: BP 145/86
== END 2018-09-27 08:37 | disposition home or self-care (01) ==
LOC: ED 07:30
DX: F10.20 Alcohol dependence, uncomplicated (principal); F17.210 Nicotine dependence, cigarettes, uncomplicated
CPT/HCPCS: 99281; A9270-GY